=== PATIENT | female | born 1970 | race Caucasian/White ===

== ENCOUNTER 2020-10-18 07:00 | Outpatient (REF) | payer OTHER, SELFPAY ==
[2020-10-18 07:29] LABS: COVID-19 Test Negative (Negative)
== END 2020-10-18 07:01 | disposition home or self-care (01) ==
LOC: HO.EMPCOV 07:00
PROVIDERS: PCP Internal Medicine; Visit Provider Internal Medicine
DX: Z20.828 Contact with and (suspected) exposure to other viral communicable diseases (principal)
CPT/HCPCS: 87635; C9803

== ENCOUNTER 2021-01-10 10:56 | Outpatient (REF) | payer OTHER, SELFPAY ==
--- NOTE | ~2021-01-10 | XR_ITS ---
EXAMINATION: XR SHOULDER, RIGHT CLINICAL INFORMATION: Pain COMPARISON: Previous x-ray May 2014 TECHNIQUE: Three views of the right shoulder. FINDINGS: Bone alignment is normal. No acute fracture or dislocation is seen. There may be old healed fractures of the right fourth and fifth ribs that appears unchanged. The joint spaces are normal. Soft tissues are normal. XR/XR shoulder RT min 2V IMPRESSION: Normal shoulder. Question old right rib fractures.
== END 2021-01-10 10:57 | disposition home or self-care (01) ==
LOC: HO.HOSX 10:56
PROVIDERS: Visit Provider Orthopaedic Surgery
DX: Z13.89 Encounter for screening for other disorder (principal)

== ENCOUNTER → 2021-01-12 08:01 | Outpatient (BNVA) | payer OTHER, SELFPAY | PROVIDERS: Visit Provider Orthopaedic Surgery | DX: M75.41 Impingement syndrome of right shoulder (principal) | CPT/HCPCS: 20610; 73030; J1040 ==

== ENCOUNTER 2021-02-15 08:57 | Outpatient (REF) | payer OTHER, SELFPAY ==
[2021-02-17 16:42] LABS: HPV mRNA E6/E7 rflx Not Detected (Not Detected)
== END 2021-02-15 08:58 | disposition home or self-care (01) ==
LOC: HO.LAB 08:57
PROVIDERS: PCP Internal Medicine; Visit Provider Obstetrics & Gynecology
DX: Z01.419 Encounter for gynecological examination (general) (routine) without abnormal findings (principal); N95.0 Postmenopausal bleeding
CPT/HCPCS: 58100; 87624; 88142; 88305

== ENCOUNTER → 2021-03-02 09:39 | Outpatient (BNVA) | payer OTHER, SELFPAY | PROVIDERS: PCP Internal Medicine; Visit Provider Orthopaedic Surgery ==

== ENCOUNTER → 2021-03-04 11:33 | Outpatient (BNVA) | payer OTHER, SELFPAY | PROVIDERS: Visit Provider Obstetrics & Gynecology ==

== ENCOUNTER 2021-05-06 11:56 | Outpatient (REF) | payer OTHER, SELFPAY ==
--- NOTE | ~2021-05-06 | MM_ITS ---
EXAMINATION: MM SCREENING DIGITAL BREAST TOMOSYNTHESIS, BILATERAL CLINICAL INFORMATION: Screening. Asymptomatic. The lifetime risk of breast cancer based on the Tyrer-Cuzick Model is 6%. COMPARISON: Mammography: 09/24/2019, 08/29/2018, 07/16/2017 TECHNIQUE: Digital breast tomosynthesis is performed in both the craniocaudal and mediolateral oblique views along with computer-aided detection (CAD). Synthesized 2D images are generated from the tomosynthesis. FINDINGS: There are scattered areas of fibroglandular density (ACR BI-RADS breast composition Category b). There are no significant masses, abnormal calcifications, or other abnormalities. There is a biopsy clip marker adjacent to small stable nodule inferior medial right breast. No developing density. The axilla and skin contours are unremarkable. MM/MM tomosynthesis screening BI IMPRESSION: No mammographic evidence of malignancy. ASSESSMENT: BI-RADS 2: Benign RECOMMENDATION: Routine annual mammography screening. This patient's information was entered into a reminder system with a target due date for their next mammogram.
== END 2021-05-06 11:57 | disposition home or self-care (01) ==
LOC: HO.MAMMO 11:56
PROVIDERS: Visit Provider Internal Medicine
DX: Z12.31 Encounter for screening mammogram for malignant neoplasm of breast (principal)
CPT/HCPCS: 77063; 77067

== ENCOUNTER → 2021-05-13 14:10 | Outpatient (BNVA) | payer OTHER, SELFPAY | PROVIDERS: PCP Internal Medicine; Visit Provider Nurse Practitioner ==

== ENCOUNTER 2021-05-16 07:44 | Outpatient (REF) | payer OTHER, SELFPAY ==
[2021-05-16 10:07] LABS: MANUAL DIFF FLAG NO
[2021-05-16 10:15] LABS: Basophils Percent Auto 0.7 % (0-2); Eosinophils Absolute Auto 0.5 X10*3/uL (0.0-0.4); Eosinophils Percent Auto 9.6 % (0-4); Hematocrit 38.7 % (37-47); Hemoglobin 12.7 g/dl (12.0-16.0); Imm Gran Abs Auto 0.04 X10*3/uL (0.00-0.03); Imm Gran Pct Auto 0.7 % (0.0-0.4); Lymphocytes Absolute Auto 1.5 X10*3/uL (1.2-4.9); Lymphocytes Percent Auto 26.1 % (20-40); Mean Corpuscular HGB Conc 32.8 g/dl (31.0-35.0); Mean Corpuscular Hemoglobin 29.5 pg (27.0-33.0); Mean Platelet Volume 10.2 fL (9.4-12.3); Monocytes Absolute Auto 0.4 X10*3/uL (0.1-1.2); Monocytes Percent Auto 6.3 % (2-11); Neutrophils Absolute Auto 3.2 X10*3/uL (2.0-8.3); Neutrophils Percent Auto 56.6 % (45-73); Platelet Count 235 X10*3/uL (160-400); Red Cell Distribution Width 12.9 % (11.0-16.0); White Blood Count 5.6 X10*3/uL (4.8-10.8)
[2021-05-16 11:19] LABS: Alanine Aminotransferase 19 U/L (0-31); Albumin Level 4.3 g/dL (3.5-5.0); Alkaline Phosphatase 77 U/L (39-117); Anion Gap 12 (12-20); Aspartate Amino Transferase 16 U/L (5-31); Bilirubin Total 0.3 mg/dL (0.0-1.0); Blood Urea Nitrogen 9 mg/dL (9-16); Calcium 9.1 mg/dL (8.4-10.2); Carbon Dioxide 25 mmol/L (22-29); Chloride 106 mmol/L (96-108); Estimated Glomerular Filt Rate > 60; Glucose Random 112 mg/dL (60-115); Potassium 4.3 mmol/L (3.3-5.1); Sodium 139 mmol/L (135-145); Total Protein 6.9 g/dL (6.5-8.0)
== END 2021-05-16 07:45 | disposition home or self-care (01) ==
LOC: HO.10HDL 07:44
PROVIDERS: Visit Provider Nurse Practitioner
DX: Z12.11 Encounter for screening for malignant neoplasm of colon (principal)
CPT/HCPCS: 36415; 80053; 85025

== ENCOUNTER → 2021-06-29 14:50 | Outpatient (BNVA) | payer OTHER, SELFPAY | PROVIDERS: PCP Internal Medicine; Visit Provider Internal Medicine Pulmonary Disease ==

== ENCOUNTER 2021-07-14 07:55 | Day surgery (SDC) | payer OTHER, SELFPAY ==
[2021-07-08 10:14] VITALS: BMI 36.9
--- NOTE | 2021-07-13 09:26 | P.CONAN_ITS ---
Documented by User: Alesha Centeno NP 07/13/21 09:30 HPI - Anesthesia Eval Consult details Narrative: 50yo F for Colonoscopy PMFSH Active Problems Active Problems: All Active Problems (Updated 07/08/21 @ 10:17 by Juany Cortes RN) Rotator cuff impingement syndrome of right shoulder (Acute) Colon cancer screening (Acute) DOT (obstructive sleep apnea) (Acute) Past Medical History Medical History (Updated 07/08/21 @ 10:17 by Juany Cortes RN) Anxiety COVID-19 vaccine series completed Heartburn Post-menopausal Sleep apnea Surgical History Surgical History H/O tubal ligation Social History Social History (Updated 07/08/21 @ 10:19 by Juany Cortes RN) Patient Tobacco Use Status: Never used Tobacco Use of substances other than those prescribed or required for medical reasons: No Have you been hit, kicked, punched, or otherwise hurt by someone within the past year? 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 identity: Female Meds Allergies Allergy/AdvReac Type Severity Reaction Status Date / Time No Known Allergies Allergy Verified 06/29/21 14:51 Home Medications Medication Instructions Recorded Confirmed Last Taken Type cholecalciferol (vitamin D3) 25 25 mcg PO DAILY 07/08/21 07/08/21 Unknown History mcg (1,000 unit) capsule (Vitamin D3) sertraline 50 mg tablet 1.5 tab PO DAILY 07/08/21 07/08/21 Unknown History Exam Exam Date and Time: July 13, [id number] Height,Weight and Vital Signs: Height 5 ft Weight 85.729 kg Pertinent Lab Results Pertinent Lab Results: Laboratory Tests 05/16/21 05/16/21 07:50 07:50 WBC 5.6 Hgb 12.7 Hct 38.7 Plt Count 235 Sodium 139 Potassium 4.3 Chloride 106 Carbon Dioxide 25 BUN 9 Creatinine 0.81 Assessment and Plan Assessment Anesthesia Assessment: Chart Reviewed Documented by User: Leeann Flowers MD 07/14/21 08:42 PMFSH Active Problems Active Problems: All Active Problems (Updated 07/08/21 @ 10:17 by Juany Cortes RN) Rotator cuff impingement syndrome of right shoulder (Acute) Colon cancer screening (Acute) DOT (obstructive sleep apnea) (Acute). Not formally diagnosed. For testing 07/18/21 Past Medical History Medical History (Updated 07/08/21 @ 10:17 by Juany Cortes RN) Anxiety COVID-19 vaccine series completed Heartburn Post-menopausal Sleep apnea Family History Family history of problems with anesthesia: No Surgical History Surgical History H/O tubal ligation History of Problems with Anesthesia: No Social History Social History (Updated 07/08/21 @ 10:19 by Juany Cortes RN) Patient Tobacco Use Status: Never used Tobacco Use of substances other than those prescribed or required for medical reasons: No Have you been hit, kicked, punched, or otherwise hurt by someone within the past year? 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 identity: Female Meds Allergies Allergy/AdvReac Type Severity Reaction Status Date / Time No Known Allergies Allergy Verified 06/29/21 14:51 Home Medications Medication Instructions Recorded Confirmed Last Taken Type cholecalciferol (vitamin D3) 25 25 mcg PO DAILY 07/08/21 07/08/21 Unknown History mcg (1,000 unit) capsule (Vitamin D3) sertraline 50 mg tablet 1.5 tab PO DAILY 07/08/21 07/08/21 Unknown History Exam Height,Weight and Vital Signs: Height 5 ft Weight 85.729 kg Vital Signs Temp Pulse Resp BP 07/14/21 08:07 97.8 F 78 16 120/81 Airway Mallampati Class: II TM Dist: >3cm Neck ROM: Full Heart: RRR Lungs: CTAB Assessment and Plan Assessment Anesthesia Assessment: Anesthesia Plan Discussed Final Anesthetic Review Family History of Problems with Anesthesia: No History of Problems with Anesthesia: No NPO: Yes ASA Class: II Final Preanesthetic Review: No Changes in Pt Med Stat, Meds/Allgs Chart Reviewed , Consent Obtained/Reviewed and Anes Risks/Benef Reviewed Patient Risk: Intermediate Procedure Risk: Low Assessment/Block/Sedation in SS: Assess/Block/Sedation-SS Anesthetic Plan Anesthetic Plan: MAC: Disposition: Standard PACU
[2021-07-14 08:07] VITALS: BP 120/81; PULSE 78; RESP 16; TEMP 36.6
[2021-07-14] MEDS: Lactated Ringers 1,000 ML 100 ML IVCONT (08:17)
--- NOTE | 2021-07-14 08:28 | P.BOP_ITS ---
Brief Operative Note Date of Service: 07/14/21 Pre-op diagnosis: colon screening Post-op diagnosis: same Procedure: see op note Surgeon: Favio Power MD Anesthesia: MAC Was an Customer Success Specialist used for this Procedure?: No Estimated blood loss (mL): 0 Condition: stable Disposition: PACU
--- NOTE | 2021-07-14 08:28 | MHC.SHP ---
Pre-Procedural Eval Section A Date of Service: 07/14/21 Section B Chief Complaint: Screening Relevant Family History (Specify if Yes): No Relevant Social History: None Present Medications: see Short Stay Collaborative assessment Medical History: Significant History (Anxiety COVID-19 vaccine series completed Heartburn Post-menopausal Sleep apnea) History of Previous Operations: Relevant previous surgery/procedure and date(s) (tubal ligation) Allergies: Allergies Allergy/AdvReac Type Severity Reaction Status Date / Time No Known Allergies Allergy Verified 06/29/21 14:51 Review of Systems Sugical H&P ROS: Negative: Constitution, Cardiovascular, Respiratory, Neurological, Psychiatric, Hem-Onc, Allergic/Immunologic, Gastrointestinal, Genitourinary, Musculoskeletal, Integumentary, Endocrine and Eyes/Ears/Nose/Throat Exam Surgical H&P Exam: Normal: HEENT, Normal: Heart, Normal: Lungs, Normal: Extremities, Normal: Abdomen, Normal: Skin and Normal: Neurological Plan Diagnosis/Plan: Unchanged I have reviewed the history and physical and performed a pertinent physical examination on my patient. No changes have occurred unless specified.
--- NOTE | 2021-07-14 08:29 | W.PM.OPN ---
Operative Note Operative Note Date of Service: 07/14/21 Narrative: Operative Information Procedure Description: Colonoscopy COLONOSCOPY Instrument: Olympus variable stiffness pediatric scope 190L Colonoscopy Monitoring: Vital signs and clinical assessment, continuous EKG monitoring, Pulse oximetry, Carbon Dioxide monitoring and blood pressure monitoring were done throughout the procedure. Colon withdrawal time was 11 minutes. Procedure: The patient was placed in the left lateral decubitis position and pre-procedure medications were administered. After a digital rectal examination of the ano-rectum, the video colonoscope was inserted into the rectum and advanced through the colon to the cecum/TI. The colonoscope was slowly withdrawn in a retrograde panoramic fashion and the colon mucosa was carefully examined including a retroflexed view of the rectum. Findings and interventions are described below. Procedure Difficulty:moderate, pressure applied to get to cecum, Findings: Terminal Ileum-normal Cecum:normal Ascending Colon: 9-10 mm sessile polyp removed with cold snare but not retrieved Transverse Colon -normal Descending Colon:normal Sigmoid Colon: normal Rectum: Retroflexion with small internal hemorrhoids, grade I Anorectum - normal Colon preparation: Reading Bowel Preparation Scale Right colon; 2 Transverse colon: 2 Left colon; 2 (0 = Unprepared colon segment with mucosa not seen due to solid stool that cannot be cleared. 1 = Portion of mucosa of the colon segment seen, but other areas of the colon segment not well seen due to staining, residual stool and/or opaque liquid. 2 = Minor amount of residual staining, small fragments of stool and/or opaque liquid, but mucosa of colon segment seen well. 3 = Entire mucosa of colon segment seen well with no residual staining, small fragments of stool or opaque liquid) Impression and Post Procedure Diagnosis: polyp internal hemorrhoids Plan: High fiber diet leaflet Avoid straining at stool, epsom salts and sitz bath, anusol supps or cream Repeat Colonoscopy in 5 years or earlier if clinically indicated Above findings were reviewed with the patient and relevant handouts were provided if indicated.
[2021-07-14 09:13] VITALS: BP 115/69; PULSE 75; RESP 12; TEMP 36.8; O2SAT 98
[2021-07-14 09:28] VITALS: BP 117/71; PULSE 72; RESP 18; TEMP 36.8; O2SAT 98
== END 2021-07-14 09:49 | disposition home or self-care (01) ==
PROVIDERS: PCP Internal Medicine; Visit Provider Internal Medicine Gastroenterology
PROC: 0DJD8ZZ Inspection of Lower Intestinal Tract, Via Natural or Artificial Opening Endoscopic (ICD-10-PCS; CPT 45378; principal; 2021-07-14 09:10)
DX: Z12.11 Encounter for screening for malignant neoplasm of colon (principal); D12.2 Benign neoplasm of ascending colon; K64.0 First degree hemorrhoids
CPT/HCPCS: 45385; J3010

== ENCOUNTER → 2021-07-18 10:34 | Outpatient (REF) | payer OTHER, SELFPAY | LOC: HO.SL 10:34 | PROVIDERS: PCP Internal Medicine; Visit Provider Internal Medicine Pulmonary Disease | DX: G47.33 Obstructive sleep apnea (adult) (pediatric) (principal); R51.9 Headache, unspecified; R06.83 Snoring; R40.0 Somnolence | CPT/HCPCS: 95806 ==

== ENCOUNTER → 2021-08-02 15:19 | Outpatient (BNVA) | payer OTHER, SELFPAY | PROVIDERS: PCP Internal Medicine; Visit Provider Internal Medicine Pulmonary Disease ==

== ENCOUNTER 2021-11-29 07:33 | Outpatient (REF) | payer OTHER, SELFPAY ==
[2021-11-29 10:37] LABS: Cholesterol 264 mg/dL; HDL Cholesterol 54 mg/dL; LDL Cholesterol Calculated 186 mg/dl; Triglycerides 120 mg/dL
== END 2021-11-29 07:34 | disposition home or self-care (01) ==
LOC: HO.10HDL 07:33
PROVIDERS: Visit Provider Internal Medicine
DX: E78.2 Mixed hyperlipidemia (principal)
CPT/HCPCS: 36415; 80061

== ENCOUNTER → 2021-12-28 16:14 | Outpatient (BNVA) | payer OTHER, SELFPAY | PROVIDERS: PCP Internal Medicine; Visit Provider Nurse Practitioner Family ==

== ENCOUNTER → 2022-02-17 10:16 | Outpatient (BNVA) | payer OTHER, SELFPAY | PROVIDERS: PCP Internal Medicine; Visit Provider Advanced Practice Midwife | DX: Z13.89 Encounter for screening for other disorder (principal) ==

== ENCOUNTER 2022-03-07 10:50 | Outpatient (REF) | payer OTHER, SELFPAY | END 2022-03-07 10:51 | disposition home or self-care (01) | LOC: HO.MAMMO 10:50 | PROVIDERS: PCP Internal Medicine; Visit Provider Advanced Practice Midwife | DX: Z13.89 Encounter for screening for other disorder (principal) ==

== ENCOUNTER 2022-03-30 08:08 | Outpatient (REF) | payer OTHER, SELFPAY ==
--- NOTE | ~2022-03-30 | MR_ITS ---
EXAMINATION: MRI ANKLE WITHOUT CONTRAST, LEFT CLINICAL INFORMATION: Achilles tendinitis COMPARISON: None TECHNIQUE: MRI of the ankle without contrast is performed in a 1.5 Jenny high-field scanner. FINDINGS: ACHILLES TENDON: There is thickening of the proximal/midportion of the Achilles tendon, measuring approximately 1.1 cm AP. Mild increased signal in the distal Achilles tendon. The findings are compatible with tendinosis. No focal tendon defect or tear is identified. Mild peritendinitis. Trace edema/bursal fluid in the retrocalcaneal region. BONE/JOINTS: No suspicious marrow signal changes. No evidence of fracture. No talar dome osteochondral lesion. Moderate second tarsometatarsal joint arthritis. Mild third tarsometatarsal joint arthritis. MUSCLES/TENDONS: Mild posterior tibial tenosynovitis. Flexor hallucis longus tenosynovitis, with prominent fluid in the tendon sheath. Medial flexor tendons intact. Peroneal, extensor tendons intact. There is a small fluid focus associated with the distal tibialis anterior tendon, dorsal to the navicular-medial cuneiform, could represent focal tenosynovitis versus a ganglion cyst in this region. LIGAMENTS: Mild sprain ATFL. Posterior talofibular, tibiofibular, calcaneofibular ligaments intact. Deltoid ligament is intact. PLANTAR FASCIA: Intact. SINUS TARSI: Normal signal. TARSAL TUNNEL : Unremarkable MR/MR ankle LT wo con IMPRESSION: 1. Achilles tendinosis. No focal tear seen. Mild peritendinitis. Trace retrocalcaneal edema/bursal fluid. 2. Posterior tibial and flexor hallucis longus tenosynovitis. 3. Fluid focus associated with the distal tibialis anterior tendon, dorsal to the navicular-medial cuneiform articulation, could represent focal tenosynovitis versus a ganglion cyst 4. Mild sprain ATFL.
== END 2022-03-30 08:09 | disposition home or self-care (01) ==
LOC: HO.MRI 08:08
PROVIDERS: Visit Provider Internal Medicine
DX: M76.62 Achilles tendinitis, left leg (principal)
CPT/HCPCS: 73721

== ENCOUNTER 2022-04-26 09:46 | Outpatient (REF) | payer OTHER, SELFPAY ==
--- NOTE | ~2022-04-26 | FL_ITS ---
EXAMINATION: XR FLUOROSCOPY WITH IMAGES CLINICAL INFORMATION: M53.3 - Sacrococcygeal disorders, not elsewhere classified COMPARISON: None. TECHNIQUE: Fluoroscopy performed by Dr. Fer Harris. Fluoroscopy time: 0.3 minutes. DAP: 1.83 Gycm2. Images: 2. FINDINGS: There is a spinal needle overlying the mid right sacroiliac joint with needle tip level of the joint. No erosive changes. FL/FL guidance in treatment room IMPRESSION: Fluoroscopy for pain management procedure.
== END 2022-04-26 09:47 | disposition home or self-care (01) ==
LOC: HO.XRAY 09:46
PROVIDERS: PCP Internal Medicine; Visit Provider Internal Medicine
DX: M53.3 Sacrococcygeal disorders, not elsewhere classified (principal)
CPT/HCPCS: 27096; J1020

== ENCOUNTER 2022-05-08 09:59 | Outpatient (REF) | payer OTHER, SELFPAY ==
--- NOTE | ~2022-05-08 | MM_ITS ---
EXAMINATION: MM SCREENING DIGITAL BREAST TOMOSYNTHESIS, BILATERAL CLINICAL INFORMATION: Screening. Asymptomatic. The lifetime risk of breast cancer based on the Tyrer-Cuzick Model is 7%. COMPARISON: Mammography: 05/06/2021; outside mammography 09/24/2019, 08/29/2018 ([facility]) TECHNIQUE: Digital breast tomosynthesis is performed in both the craniocaudal and mediolateral oblique views along with computer-aided detection (CAD). Synthesized 2D images are generated from the tomosynthesis. FINDINGS: There are scattered areas of fibroglandular density (ACR BI-RADS breast composition Category b). There are no significant masses, abnormal calcifications, or other abnormalities. There is a small stable oval nodule with adjacent biopsy clip marker right breast mid lower inner quadrant. The axilla and skin contours are unremarkable. There are no significant changes. MM/MM tomosynthesis screening BI IMPRESSION: No mammographic evidence of malignancy. ASSESSMENT: BI-RADS 2: Benign RECOMMENDATION: Routine annual mammography screening. This patient's information was entered into a reminder system with a target due date for their next mammogram.
== END 2022-05-08 10:00 | disposition home or self-care (01) ==
LOC: HO.MAMMO 09:59
PROVIDERS: Visit Provider Internal Medicine
DX: Z12.31 Encounter for screening mammogram for malignant neoplasm of breast (principal)
CPT/HCPCS: 77063; 77067

== ENCOUNTER 2022-11-03 07:00 | Outpatient (RCR) | payer OTHER, SELFPAY | END 2022-11-03 10:35 | disposition home or self-care (01) | LOC: HO.PT 07:00 | PROVIDERS: Visit Provider Orthopaedic Surgery | DX: M61.462 Other calcification of muscle, left lower leg (principal) | CPT/HCPCS: 97110; 97140; 97162; 97530 ==

== ENCOUNTER 2022-12-19 14:32 | Emergency (ER) | payer OTHER, SELFPAY ==
--- NOTE | ~2022-12-19 | XR_ITS ---
EXAMINATION: XR chest 2V CLINICAL INFORMATION: Reason for Exam fever, cough COMPARISON: No prior chest x-ray available in our system for comparison at the time of this dictation. TECHNIQUE: XR chest 2V Lungs and Mone: Both lungs are clear. Pleura: Normal. Costophrenic angles are sharp. No pneumothorax. Heart: The heart is normal in size. Mediastinum: The mediastinum is within normal limits.. Bones: Skeletal structures included are normal for patient's age. XR/XR chest 2V IMPRESSION: No radiographic evidence of acute cardiopulmonary disease.
[2022-12-19 14:35] VITALS: BP 151/87; PULSE 75; RESP 16; TEMP 36.7; O2SAT 99; BMI 37.0
[2022-12-19 15:32] LABS: MANUAL DIFF FLAG NO
[2022-12-19 15:35] LABS: Basophils Absolute Auto 0.1 X10*3/uL (0.0-0.2); Basophils Percent Auto 0.6 % (0-2); Eosinophils Absolute Auto 1.4 X10*3/uL (0.0-0.4); Eosinophils Percent Auto 13.4 % (0-4); Hematocrit 40.3 % (37.0-47.0); Hemoglobin 13.5 g/dl (12.0-16.0); Imm Gran Abs Auto 0.03 X10*3/uL (0.00-0.03); Imm Gran Pct Auto 0.3 % (0.0-0.4); Lymphocytes Absolute Auto 1.5 X10*3/uL (1.2-4.9); Lymphocytes Percent Auto 14.5 % (20-40); Mean Corpuscular HGB Conc 33.5 g/dl (31.0-35.0); Mean Corpuscular Volume 86.7 fL (80.0-98.0); Mean Platelet Volume 9.7 fL (9.4-12.3); Monocytes Absolute Auto 0.5 X10*3/uL (0.1-1.2); Monocytes Percent Auto 4.4 % (2-11); NRBC Pct Auto 0.2 /100WBC (0.0-0.2); Neutrophils Absolute Auto 7.1 x10*3/uL (2.0-8.3); Neutrophils Percent Auto 66.8 % (45-73); Platelet Count 267 X10*3/uL (160-400); Red Blood Count 4.65 X10*6/uL (4.20-5.50); Red Cell Distribution Width 12.8 % (11.0-16.0); White Blood Count 10.6 X10*3/uL (4.8-10.8)
[2022-12-19 15:48] LABS: COVID-19 Test Negative (Negative); IDNOW Serial# 16C4AD1C
[2022-12-19 15:49] LABS: Alanine Aminotransferase 15 U/L (0-31); Albumin Level 4.2 g/dL (3.5-5.0); Alkaline Phosphatase 108 U/L (39-117); Anion Gap 14 (12-20); Aspartate Amino Transferase 12 U/L (5-31); Bilirubin Total 0.4 mg/dL (0.0-1.0); Blood Urea Nitrogen 9 mg/dL (9-16); Calcium 9.3 mg/dL (8.4-10.2); Carbon Dioxide 23 mmol/L (22-29); Chloride 107 mmol/L (96-108); Estimated Glomerular Filt Rate > 60; Glucose Random 124 mg/dL (60-115); Lipase 21 U/L (8-78); Potassium 4.4 mmol/L (3.3-5.1); Sodium 140 mmol/L (135-145); Total Protein 6.9 g/dL (6.5-8.0)
[2022-12-19 16:53] VITALS: BP 148/85; PULSE 88; RESP 20; TEMP 36.2; O2SAT 97
--- NOTE | 2022-12-19 16:54 | ED.ABDPAIN ---
HPI - Abdominal Pain General Chief Complaint: Abdominal Pain <JOSÉ LUIS Back - Last Filed: 12/19/22 16:57> Stated Complaint: Upper abd pain <JOSÉ LUIS Back - Last Filed: 12/19/22 16:57> Time Seen by Provider: 12/19/22 19:47 <JOSÉ LUIS Back - Last Filed: 12/19/22 16:57> Source: patient <Alexandra Blair MD - Last Filed: 12/19/22 20:57> Mode of arrival: ambulatory <Alexandra Blair MD - Last Filed: 12/19/22 20:57> History of Present Illness HPI narrative: This is a pleasant 52-year-old female who presents with intermittent epigastric discomfort since Sunday, sharp in nature associated with nausea as well as diarrhea and reports that last night she had a fever with a T-max of 101 degrees. <Alexandra Blair MD - Last Filed: 12/19/22 20:57> Related Data Home Medications: Home Medications Medication Instructions Recorded Confirmed cholecalciferol (vitamin D3) 25 25 mcg PO DAILY 07/08/21 07/08/21 mcg (1,000 unit) capsule (Vitamin D3) sertraline 50 mg tablet 1.5 tab PO DAILY 07/08/21 07/08/21 Previous Rx's Medication Instructions Recorded methylprednisolone 4 mg tablets in See Rx Instructions PO PER PKG DIR 03/31/22 a dose pack (Medrol (Daniel)) #21 ea tizanidine 2 mg tablet 2 mg PO Q8H PRN muscle spasticity 04/01/22 #21 tabs tramadol 50 mg tablet 50 mg PO BID PRN pain, moderate 3 04/25/22 days #6 tabs rimegepant 75 mg disintegrating 75 mg PO Q OTHER DAY PRN migraine 12/15/22 tablet (Nurtec ODT) headache 30 days #16 tabs sucralfate 100 mg/mL oral 10 ml PO BID #414 mL 12/19/22 suspension (Carafate) <JOSÉ LUIS Back - Last Filed: 12/19/22 16:57> Allergies/Adverse Reactions: Allergies Allergy/AdvReac Type Severity Reaction Status Date / Time No Known Allergies Allergy Verified 02/17/22 10:27 <JOSÉ LUIS Back - Last Filed: 12/19/22 16:57> Review of Systems Review of Systems Pertinent positives and negatives as stated in HPI <Alexandra Blair MD - Last Filed: 12/19/22 20:57> PMFSH Past Medical History Source: nursing notes reviewed <Alexandra Blair MD - Last Filed: 12/19/22 20:57> Medical History: Medical History Anxiety COVID-19 vaccine series completed Heartburn Post-menopausal Sleep apnea <JOSÉ LUIS Back - Last Filed: 12/19/22 16:57> Surgical History: Surgical History H/O tubal ligation <JOSÉ LUIS Back - Last Filed: 12/19/22 16:57> Social History Social History: Social History Household Members: Spouse Patient Tobacco Use Status: Never used Tobacco Advance Directives: No Advance Directives Information Provided: Yes Current occupational status: employed 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 <JOSÉ LUIS Back - Last Filed: 12/19/22 16:57> Physical Exam ED Vital Signs: Vital Signs - 24 hr 12/19/22 14:35 12/19/22 16:53 Temperature 98.0 F 97.2 F Pulse Rate 75 88 Respiratory Rate 16 20 Blood Pressure 151/87 H 148/85 H Pulse Oximetry 99 97 Oxygen Delivery Method Room Air Room Air BMI result Body Mass Index 37.0 <JOSÉ LUIS Back - Last Filed: 12/19/22 16:57> Vital Signs - 24 hr 12/19/22 14:35 12/19/22 16:53 Temperature 98.0 F 97.2 F Pulse Rate 75 88 Respiratory Rate 16 20 Blood Pressure 151/87 H 148/85 H Pulse Oximetry 99 97 Oxygen Delivery Method Room Air Room Air BMI result Body Mass Index 37.0 VITAL SIGNS: Reviewed. GENERAL: Well developed, well nourished, in no acute distress. HEAD: Normocephalic/atraumatic EYES: PERRLA, EOMI OROPHARYNX: no oral lesions noted, posterior pharynx clear NECK: Supple, no adenopathy LUNGS: Normal breath sounds. No adventitious sounds or accessory muscle use. SpO2<97> CARDIOVASCULAR: Regular rate and rhythm without noted murmurs, no JVD or lower extremity edema. ABDOMEN: Soft, mild discomfort in epigastrium without rebound, non-distended with bowel sounds. NEUROLOGIC: Alert and oriented x 4. <Alexandra Blair MD - Last Filed: 12/19/22 20:57> Course Course Course Narrative: RME--52-year-old female past medical history anxiety, sleep apnea, presenting to the ED complaining of epigastric abdominal pain, nausea, nonbloody diarrhea x 4 days, w/ fever T-max 101 degrees last night. Denies vomiting, dysuria/hematuria Abdomen soft with mild epigastric tenderness, no rebound or guarding Labs, UA, EKG ordered <JOSÉ LUIS Back - Last Filed: 12/19/22 16:57> Medical Decision Making Medical Decision Making MDM Narrative: This is a 52-year-old female with history and clinical presentation initially suggestive of possible gastritis/acid reflux, cholecystitis, pancreatitis and lower clinical suspicion for for SBO. I reviewed all investigations and my interpretation is there are no findings to suggest cholecystitis or pancreatitis and instead feel that this is most consistent with a viral gastroenteritis or possible gastritis/ulcer. Patient has some difficulty with tolerating Mylanta and will try a trial of Carafate, patient has Zofran at home and was also history to stick to a bland diet and to try to avoid the citrus or carbonated beverages. Patient is agreeable to current plan and was informed of all investigations. She is otherwise discharged home in stable condition and I did make the recommendation that she should follow-up with primary care provider and possibly discuss a referral to Gastroenterology for an upper endoscopy for further evaluation. I have noted the small amount of leukocyte esterase in the urine, however there is no presence bacteria or white blood cells. I will not treat this as a UTI. <Alexandra Blair MD - Last Filed: 12/19/22 20:57> Differential Diagnosis Please see the discussion above <Alexandra Blair MD - Last Filed: 12/19/22 20:57> Lab Data Please see the discussion above <Alexandra Blair MD - Last Filed: 12/19/22 20:57> Result Diagrams: 12/19/22 15:23 12/19/22 15:23 <JOSÉ LUIS Back - Last Filed: 12/19/22 16:57> Labs: Lab Results 12/19/22 12/19/22 12/19/22 Range/Units 15:21 15:23 15:23 WBC 10.6 (4.8-10.8) X10*3/uL RBC 4.65 (4.20-5.50) X10*6/uL Hgb 13.5 (12.0-16.0) g/dl Hct 40.3 (37.0-47.0) % MCV 86.7 (80.0-98.0) fL MCH 29.0 (27.0-33.0) pg MCHC 33.5 (31.0-35.0) g/dl RDW 12.8 (11.0-16.0) % Plt Count 267 (160-400) X10*3/uL MPV 9.7 (9.4-12.3) fL Immature Gran % (Auto) 0.3 (0.0-0.4) % Neut % (Auto) 66.8 (45-73) % Lymph % (Auto) 14.5 L (20-40) % [place] % (Auto) 4.4 (2-11) % Eos % (Auto) 13.4 H (0-4) % Baso % (Auto) 0.6 (0-2) % Lymph # (Auto) 1.5 (1.2-4.9) X10*3/uL [place] # (Auto) 0.5 (0.1-1.2) X10*3/uL Eos # (Auto) 1.4 H (0.0-0.4) X10*3/uL Baso # (Auto) 0.1 (0.0-0.2) X10*3/uL Abs Immat Gran (auto) 0.03 (0.00-0.03) X10*3/uL Absolute Neuts (auto) 7.1 (2.0-8.3) x10*3/uL Absolute Nucleated RBC 0.020 H (0.0-0.012) X10*3/uL Nucleated RBC % (auto) 0.2 (0.0-0.2) /100WBC Sodium 140 (135-145) mmol/L Potassium 4.4 (3.3-5.1) mmol/L Chloride 107 (96-108) mmol/L Carbon Dioxide 23 (22-29) mmol/L Anion Gap 14 (12-20) BUN 9 (9-16) mg/dL Creatinine 0.79 (0.5-1.4) mg/dL Estim Creat Clear Calc 83.0 Estimated GFR > 60 Random Glucose 124 H (60-115) mg/dL Calcium 9.3 (8.4-10.2) mg/dL Magnesium 2.1 (1.6-2.6) mg/dL Total Bilirubin 0.4 (0.0-1.0) mg/dL AST 12 (5-31) U/L ALT 15 (0-31) U/L Alkaline Phosphatase 108 (39-117) U/L Total Protein 6.9 (6.5-8.0) g/dL Albumin 4.2 (3.5-5.0) g/dL Lipase 21 (8-78) U/L Urine Color Urine Appearance Urine pH (5.0-9.0) Ur Specific Egan (1.005-1.025) Urine Protein (Neg-Trace) mg/dL Urine Glucose (UA) (Negative) mg/dL Urine Ketones (Negative) mg/dL Urine Blood (Negative) Urine Nitrite (Negative) Ur Leukocyte Esterase (Negative) Urine RBC (0-2) /HPF Urine WBC (0-5) /HPF Ur Squamous Epith Cells (0-2) /HPF Urine Bacteria (None Seen) Hyaline Casts (0-2) /LPF COVID-19 (SHAZIA) Negative (Negative) COVID-19 Clin Com See Note 12/19/22 Range/Units 17:05 WBC (4.8-10.8) X10*3/uL RBC (4.20-5.50) X10*6/uL Hgb (12.0-16.0) g/dl Hct (37.0-47.0) % MCV (80.0-98.0) fL MCH (27.0-33.0) pg MCHC (31.0-35.0) g/dl RDW (11.0-16.0) % Plt Count (160-400) X10*3/uL MPV (9.4-12.3) fL Immature Gran % (Auto) (0.0-0.4) % Neut % (Auto) (45-73) % Lymph % (Auto) (20-40) % [place] % (Auto) (2-11) % Eos % (Auto) (0-4) % Baso % (Auto) (0-2) % Lymph # (Auto) (1.2-4.9) X10*3/uL [place] # (Auto) (0.1-1.2) X10*3/uL Eos # (Auto) (0.0-0.4) X10*3/uL Baso # (Auto) (0.0-0.2) X10*3/uL Abs Immat Gran (auto) (0.00-0.03) X10*3/uL Absolute Neuts (auto) (2.0-8.3) x10*3/uL Absolute Nucleated RBC (0.0-0.012) X10*3/uL Nucleated RBC % (auto) (0.0-0.2) /100WBC Sodium (135-145) mmol/L Potassium (3.3-5.1) mmol/L Chloride (96-108) mmol/L Carbon Dioxide (22-29) mmol/L Anion Gap (12-20) BUN (9-16) mg/dL Creatinine (0.5-1.4) mg/dL Estim Creat Clear Calc Estimated GFR Random Glucose (60-115) mg/dL Calcium (8.4-10.2) mg/dL Magnesium (1.6-2.6) mg/dL Total Bilirubin (0.0-1.0) mg/dL AST (5-31) U/L ALT (0-31) U/L Alkaline Phosphatase (39-117) U/L Total Protein (6.5-8.0) g/dL Albumin (3.5-5.0) g/dL Lipase (8-78) U/L Urine Color Yellow Urine Appearance Clear Urine pH 7.5 (5.0-9.0) Ur Specific Egan 1.010 (1.005-1.025) Urine Protein Negative (Neg-Trace) mg/dL Urine Glucose (UA) Negative (Negative) mg/dL Urine Ketones Negative (Negative) mg/dL Urine Blood Negative (Negative) Urine Nitrite Negative (Negative) Ur Leukocyte Esterase Small (1+) H (Negative) Urine RBC 0-2 (0-2) /HPF Urine WBC 0-5 (0-5) /HPF Ur Squamous Epith Cells 0-2 (0-2) /HPF Urine Bacteria None Seen (None Seen) Hyaline Casts 0-2 (0-2) /LPF COVID-19 (SHAZIA) (Negative) COVID-19 Clin Com <JOSÉ LUIS Back - Last Filed: 12/19/22 16:57> Lab Results 12/19/22 12/19/22 12/19/22 Range/Units 15:21 15:23 15:23 WBC 10.6 (4.8-10.8) X10*3/uL RBC 4.65 (4.20-5.50) X10*6/uL Hgb 13.5 (12.0-16.0) g/dl Hct 40.3 (37.0-47.0) % MCV 86.7 (80.0-98.0) fL MCH 29.0 (27.0-33.0) pg MCHC 33.5 (31.0-35.0) g/dl RDW 12.8 (11.0-16.0) % Plt Count 267 (160-400) X10*3/uL MPV 9.7 (9.4-12.3) fL Immature Gran % (Auto) 0.3 (0.0-0.4) % Neut % (Auto) 66.8 (45-73) % Lymph % (Auto) 14.5 L (20-40) % [place] % (Auto) 4.4 (2-11) % Eos % (Auto) 13.4 H (0-4) % Baso % (Auto) 0.6 (0-2) % Lymph # (Auto) 1.5 (1.2-4.9) X10*3/uL [place] # (Auto) 0.5 (0.1-1.2) X10*3/uL Eos # (Auto) 1.4 H (0.0-0.4) X10*3/uL Baso # (Auto) 0.1 (0.0-0.2) X10*3/uL Abs Immat Gran (auto) 0.03 (0.00-0.03) X10*3/uL Absolute Neuts (auto) 7.1 (2.0-8.3) x10*3/uL Absolute Nucleated RBC 0.020 H (0.0-0.012) X10*3/uL Nucleated RBC % (auto) 0.2 (0.0-0.2) /100WBC Sodium 140 (135-145) mmol/L Potassium 4.4 (3.3-5.1) mmol/L Chloride 107 (96-108) mmol/L Carbon Dioxide 23 (22-29) mmol/L Anion Gap 14 (12-20) BUN 9 (9-16) mg/dL Creatinine 0.79 (0.5-1.4) mg/dL Estim Creat Clear Calc 83.0 Estimated GFR > 60 Random Glucose 124 H (60-115) mg/dL Calcium 9.3 (8.4-10.2) mg/dL Magnesium 2.1 (1.6-2.6) mg/dL Total Bilirubin 0.4 (0.0-1.0) mg/dL AST 12 (5-31) U/L ALT 15 (0-31) U/L Alkaline Phosphatase 108 (39-117) U/L Total Protein 6.9 (6.5-8.0) g/dL Albumin 4.2 (3.5-5.0) g/dL Lipase 21 (8-78) U/L Urine Color Urine Appearance Urine pH (5.0-9.0) Ur Specific Egan (1.005-1.025) Urine Protein (Neg-Trace) mg/dL Urine Glucose (UA) (Negative) mg/dL Urine Ketones (Negative) mg/dL Urine Blood (Negative) Urine Nitrite (Negative) Ur Leukocyte Esterase (Negative) Urine RBC (0-2) /HPF Urine WBC (0-5) /HPF Ur Squamous Epith Cells (0-2) /HPF Urine Bacteria (None Seen) Hyaline Casts (0-2) /LPF COVID-19 (SHAZIA) Negative (Negative) COVID-19 Clin Com See Note 12/19/22 Range/Units 17:05 WBC (4.8-10.8) X10*3/uL RBC (4.20-5.50) X10*6/uL Hgb (12.0-16.0) g/dl Hct (37.0-47.0) % MCV (80.0-98.0) fL MCH (27.0-33.0) pg MCHC (31.0-35.0) g/dl RDW (11.0-16.0) % Plt Count (160-400) X10*3/uL MPV (9.4-12.3) fL Immature Gran % (Auto) (0.0-0.4) % Neut % (Auto) (45-73) % Lymph % (Auto) (20-40) % [place] % (Auto) (2-11) % Eos % (Auto) (0-4) % Baso % (Auto) (0-2) % Lymph # (Auto) (1.2-4.9) X10*3/uL [place] # (Auto) (0.1-1.2) X10*3/uL Eos # (Auto) (0.0-0.4) X10*3/uL Baso # (Auto) (0.0-0.2) X10*3/uL Abs Immat Gran (auto) (0.00-0.03) X10*3/uL Absolute Neuts (auto) (2.0-8.3) x10*3/uL Absolute Nucleated RBC (0.0-0.012) X10*3/uL Nucleated RBC % (auto) (0.0-0.2) /100WBC Sodium (135-145) mmol/L Potassium (3.3-5.1) mmol/L Chloride (96-108) mmol/L Carbon Dioxide (22-29) mmol/L Anion Gap (12-20) BUN (9-16) mg/dL Creatinine (0.5-1.4) mg/dL Estim Creat Clear Calc Estimated GFR Random Glucose (60-115) mg/dL Calcium (8.4-10.2) mg/dL Magnesium (1.6-2.6) mg/dL Total Bilirubin (0.0-1.0) mg/dL AST (5-31) U/L ALT (0-31) U/L Alkaline Phosphatase (39-117) U/L Total Protein (6.5-8.0) g/dL Albumin (3.5-5.0) g/dL Lipase (8-78) U/L Urine Color Yellow Urine Appearance Clear Urine pH 7.5 (5.0-9.0) Ur Specific Egan 1.010 (1.005-1.025) Urine Protein Negative (Neg-Trace) mg/dL Urine Glucose (UA) Negative (Negative) mg/dL Urine Ketones Negative (Negative) mg/dL Urine Blood Negative (Negative) Urine Nitrite Negative (Negative) Ur Leukocyte Esterase Small (1+) H (Negative) Urine RBC 0-2 (0-2) /HPF Urine WBC 0-5 (0-5) /HPF Ur Squamous Epith Cells 0-2 (0-2) /HPF Urine Bacteria None Seen (None Seen) Hyaline Casts 0-2 (0-2) /LPF COVID-19 (SHAZIA) (Negative) COVID-19 Clin Com <Alexandra Blair MD - Last Filed: 12/19/22 20:57> Independent Interpretation I performed an independent interpretation of an: EKG <Alexandra Blair MD - Last Filed: 12/19/22 20:57> Interpretation: Normal sinus rhythm, HR-72, no STEMI, HI/QRS/QTC is within normal limits. <Alexandra Blair MD - Last Filed: 12/19/22 20:57> Radiology Impression Radiologist Impression: My interpretation is in agreement with radiology's impression of the imaging study. <Alexandra Blair MD - Last Filed: 12/19/22 20:57> External Record Review External record reviewed: Outpatient record and Prior outpatient labs <Alexandra Blair MD - Last Filed: 12/19/22 20:57> Critical Care Time Critical Care Time Critical Care Time: Yes <Alexandra Blair MD - Last Filed: 12/19/22 20:57> Total Critical Care Time: 30 <Alexandra Blair MD - Last Filed: 12/19/22 20:57> Attestation: I personally attest to this time spent taking care of the patient. <Alexandra Blair MD - Last Filed: 12/19/22 20:57> Discharge Plan Discharge Clinical Impression: Viral gastroenteritis, Gastritis <JOSÉ LUIS Back - Last Filed: 12/19/22 16:57> Patient Disposition: Home, Self-Care <JOSÉ LUIS Back - Last Filed: 12/19/22 16:57> Instructions: Gastritis (ED), Diet for Stomach Ulcers and Gastritis (ED), Gastroenteritis (ED), Nutrition Tips for Relief of Diarrhea (ED) <JOSÉ LUIS Back - Last Filed: 12/19/22 16:57> Additional Instructions: 1. Resume all home medications as prescribed. 2. Please follow the recommendations for gastritis/ulcer considerations. Specifically, avoid citrus, carbonated, caffeinated, spicy, fatty beverages in foods. 3. Continue to drink plenty of water, I have also provided you with a prescription for Carafate in case you are unable to locate a flavor for Mylanta. 4. Please follow-up with your primary care provider next 2-3 days. Return to the ER for any worsening symptoms or onset of new symptoms. <JOSÉ LUIS Back - Last Filed: 12/19/22 16:57> Prescriptions: New sucralfate [Carafate] 100 mg/mL suspension 10 ml PO BID Qty: 414 0RF No Action methylprednisolone [Medrol (Daniel)] 4 mg tablets,dose pack See Rx Instructions PO PER PKG DIR Qty: 21 0RF Rx Instructions: PO PER PKG DIR tizanidine 2 mg tablet 2 mg PO Q8H PRN (Reason: muscle spasticity) Qty: 21 0RF tramadol 50 mg tablet 50 mg PO BID PRN (Reason: pain, moderate) 3 Days Qty: 6 0RF Nurtec ODT 75 mg tablet,disintegrating 75 mg PO Q OTHER DAY PRN (Reason: migraine headache) 30 Days Qty: 16 0RF sertraline 50 mg tablet 1.5 tab PO DAILY cholecalciferol (vitamin D3) [Vitamin D3] 25 mcg (1,000 unit) Capsule 25 mcg PO DAILY <JOSÉ LUIS Back - Last Filed: 12/19/22 16:57> Referrals: Ana Diaz MD [Primary Care Provider] - <JOSÉ LUIS Back - Last Filed: 12/19/22 16:57>
--- NOTE | 2022-12-19 16:56 | ECG_ITS ---
Test Reason : epigastric pain Blood Pressure : / mmHG Vent. Rate : 072 BPM Atrial Rate : 072 BPM P-R Int : 172 ms QRS Dur : 070 ms QT Int : 370 ms P-R-T Axes : 037 019 039 degrees QTc Int : 405 ms Normal sinus rhythm Normal ECG No previous ECGs available Referred By: Jaz Rosales Electronically Signed By:YOLIE MEDEIROS MD
[2022-12-19 17:12] LABS: Magnesium 2.1 mg/dL (1.6-2.6)
[2022-12-19 17:26] LABS: Appearance Urine Clear; Color Urine Yellow; Glucose Urine UA Negative (Negative); Leukocyte Esterase Urine Small (1+) (Negative); Nitrite Urine Negative (Negative); PH 7.5 (5.0-9.0); UMIC TRIGGER UACC YES; Urine Blood Negative (Negative); Urine Ketones Negative (Negative); Urine Protein Negative (Neg-Trace)
[2022-12-19 17:38] LABS: Bacteria Urine None Seen (None Seen); Hyaline Casts Urine 0-2 /LPF (0-2); RBC Urine 0-2 /HPF (0-2); Squamous Epithelial Cell Urine 0-2 /HPF (0-2); UACC Culture Trigger YES; WBC Urine 0-5 /HPF (0-5)
[2022-12-19] MEDS: Sucralfate Oral Suspension 1 GM/10 ML ORAL.SUSP PO (21:26)
[2022-12-19] MEDS: Ondansetron ODT 4 MG TAB.RAPDIS TRANSLINGU (21:26)
== END 2022-12-19 21:26 | disposition home or self-care (01) ==
PROVIDERS: Physician Assistant; Emergency Provider Student in an Organized Health Care Education/Training Program; PCP Internal Medicine
DX: K52.9 Noninfective gastroenteritis and colitis, unspecified (principal); R11.0 Nausea; R10.13 Epigastric pain; Z20.822 Contact with and (suspected) exposure to COVID-19; Z20.828 Contact with and (suspected) exposure to other viral communicable diseases; Z79.899 Other long term (current) drug therapy
CPT/HCPCS: 71046; 80053; 81001; 83690; 83735; 85025; 87086; 87147; 87635; 93005; 99283

== ENCOUNTER 2022-12-20 10:34 | Emergency (ER) | payer OTHER, SELFPAY ==
--- NOTE | ~2022-12-20 | CT_ITS ---
EXAMINATION: CT ABDOMEN AND PELVIS WITHOUT CONTRAST CLINICAL INFORMATION: Epigastric pain. COMPARISON: Abdominal ultrasound performed earlier today at 11:50 AM. TECHNIQUE: Multidetector volumetric imaging was performed from the superior aspect of the liver through the pubic symphysis. Sagittal and coronal reformatted images were obtained on the technologist's workstation. This CT examination was performed using dose optimization techniques as appropriate, variously including the following: *Automated exposure control *Adjustment of mA and/or kV according to patient size (this includes techniques or standardized protocols for targeted exams where dose is matched to indication/reason for exam; i.e. extremities or head) *Use of iterative reconstruction technique DLP: 699 mGy-cm FINDINGS: LUNG BASES: No focal consolidation or pleural effusion. LIVER, GALLBLADDER, AND BILIARY TREE: The liver is normal in size, shape, and attenuation. No focal hepatic lesion or biliary ductal dilatation is present. The gallbladder is unremarkable with no evidence of radiopaque gallstones, gallbladder wall thickening, or obvious pericholecystic inflammatory changes. PANCREAS: Unremarkable. SPLEEN: Unremarkable. ADRENAL GLANDS: Unremarkable. KIDNEYS AND URETERS: The kidneys are normal in size, shape, and attenuation. No hydronephrosis, hydroureter, or calculi seen. No perinephric stranding. BLADDER: Unremarkable. GASTROINTESTINAL TRACT: The stomach and the small bowel are nondilated. Normal appendix. Colonic diverticulosis without significant pericolonic inflammatory changes. No evidence of bowel obstruction. ABDOMINAL WALL: Tiny fat-containing umbilical hernia. LYMPH NODES: Scattered slightly prominent but subcentimeter in short axis mesenteric lymph nodes with very mild haziness of the upper mesenteric fat. A few fairly symmetric mildly prominent pelvic and inguinal lymph nodes are seen, likely reactive. No pathologically enlarged lymph nodes. VASCULAR: Abdominal aorta is of normal diameter. Limited noncontrast examination. PELVIC VISCERA: Unremarkable. OSSEOUS STRUCTURES: Degenerative changes of the spine. No acute or aggressive appearing osseous abnormalities. CT/CT abdomen pelvis wo IV con IMPRESSION: 1. Scattered subcentimeter mesenteric lymph nodes with mild mesenteric fatty haziness, nonspecific finding of uncertain significance, that could be seen with mesenteric adenitis or reactive in the setting of gastroenteritis. 2. Diverticulosis without evidence of acute diverticulitis.
--- NOTE | ~2022-12-20 | US_ITS ---
EXAMINATION: US ABDOMEN LIMITED CLINICAL INFORMATION: Epigastric and right upper quadrant pain. COMPARISON: None TECHNIQUE: Real-time imaging of the right upper quadrant abdominal viscera. FINDINGS: PANCREAS: Suboptimally evaluation. LIVER: Limited evaluation. Visualized portions unremarkable. GALLBLADDER: Unremarkable. COMMON BILE DUCT: Normal in caliber measuring 0.4 cm in diameter. FREE FLUID: None. US/US abdomen limited IMPRESSION: No right upper quadrant/gallbladder abnormality.
[2022-12-20 11:32] VITALS: BP 143/96; PULSE 73; RESP 18; TEMP 36.6; O2SAT 99; BMI 37.0
[2022-12-20 12:08] LABS: MANUAL DIFF FLAG NO
[2022-12-20 12:11] LABS: Basophils Percent Auto 0.4 % (0-2); Eosinophils Absolute Auto 1.4 X10*3/uL (0.0-0.4); Eosinophils Percent Auto 12.3 % (0-4); Hematocrit 44.3 % (37.0-47.0); Hemoglobin 14.7 g/dl (12.0-16.0); Imm Gran Abs Auto 0.03 X10*3/uL (0.00-0.03); Imm Gran Pct Auto 0.3 % (0.0-0.4); Lymphocytes Absolute Auto 1.5 X10*3/uL (1.2-4.9); Lymphocytes Percent Auto 13.6 % (20-40); Mean Corpuscular HGB Conc 33.2 g/dl (31.0-35.0); Mean Corpuscular Hemoglobin 28.6 pg (27.0-33.0); Mean Corpuscular Volume 86.2 fL (80.0-98.0); Mean Platelet Volume 9.7 fL (9.4-12.3); Monocytes Absolute Auto 0.6 X10*3/uL (0.1-1.2); Neutrophils Absolute Auto 7.7 x10*3/uL (2.0-8.3); Neutrophils Percent Auto 68.4 % (45-73); Platelet Count 292 X10*3/uL (160-400); Red Blood Count 5.14 X10*6/uL (4.20-5.50); Red Cell Distribution Width 12.8 % (11.0-16.0); White Blood Count 11.3 X10*3/uL (4.8-10.8)
[2022-12-20 12:23] LABS: Alanine Aminotransferase 16 U/L (0-31); Albumin Level 4.7 g/dL (3.5-5.0); Alkaline Phosphatase 116 U/L (39-117); Anion Gap 16 (12-20); Aspartate Amino Transferase 18 U/L (5-31); Bilirubin Total 0.7 mg/dL (0.0-1.0); Blood Urea Nitrogen 10 mg/dL (9-16); Carbon Dioxide 25 mmol/L (22-29); Chloride 104 mmol/L (96-108); Creatinine Clr Calc Pharmacy 69.8; Estimated Glomerular Filt Rate > 60; Glucose Random 108 mg/dL (60-115); Lipase 19 U/L (8-78); Potassium 4.5 mmol/L (3.3-5.1); Sodium 140 mmol/L (135-145); Total Protein 7.7 g/dL (6.5-8.0)
[2022-12-20 14:32] VITALS: BP 116/76; PULSE 98; RESP 20; TEMP 36.4; O2SAT 99
--- NOTE | 2022-12-20 15:55 | ED.GENADULT ---
HPI - General Adult General Chief complaint: Abdominal Pain <Montrell De La Cruz - Last Filed: 12/20/22 15:56> Stated complaint: Abd pain <Montrell De La Cruz - Last Filed: 12/20/22 15:56> Time Seen by Provider: 12/20/22 21:50 <Montrell De La Cruz - Last Filed: 12/20/22 15:56> Source: patient <Sanjiv Zheng MD - Last Filed: 12/20/22 23:27> Mode of arrival: ambulatory <Sanjiv Zheng MD - Last Filed: 12/20/22 23:27> Limitations: no limitations <Sanjiv Zheng MD - Last Filed: 12/20/22 23:27> History of Present Illness HPI narrative: Patient with no significant past medical history been having upper abdominal pain for last 5 days no history of GERD no history of falls and history of kidney stone patient was seen here yesterday with workup negative started on Carafate , patient comes back as the is getting better feeling nauseated patient denied any history of GERD/peptic ulcer disease no alcohol use no NSAID use has last colonoscopy 5 years ago was normal. Patient had 2 loose bowel movements 2 days ago not eating much Prior to my evaluation labs were done which showed significant eosinophilia of12.3% WBC count of 11.3, patient chemistry was normal with normal LFTs and lipase ultrasound of the abdomen was done which was negative for gallstones CT scan also showed nonspecific mesenteric inflammation <Sanjiv Zheng MD - Last Filed: 12/20/22 23:27> Related Data Home medications: Home Medications Medication Instructions Recorded Confirmed cholecalciferol (vitamin D3) 25 25 mcg PO DAILY 07/08/21 07/08/21 mcg (1,000 unit) capsule (Vitamin D3) sertraline 50 mg tablet 1.5 tab PO DAILY 07/08/21 07/08/21 Previous Rx's Medication Instructions Recorded methylprednisolone 4 mg tablets in See Rx Instructions PO PER PKG DIR 03/31/22 a dose pack (Medrol (Daniel)) #21 ea tizanidine 2 mg tablet 2 mg PO Q8H PRN muscle spasticity 04/01/22 #21 tabs tramadol 50 mg tablet 50 mg PO BID PRN pain, moderate 3 04/25/22 days #6 tabs rimegepant 75 mg disintegrating 75 mg PO Q OTHER DAY PRN migraine 12/15/22 tablet (Nurtec ODT) headache 30 days #16 tabs sucralfate 100 mg/mL oral 10 ml PO BID #414 mL 12/19/22 suspension (Carafate) dexamethasone 6 mg tablet 6 mg PO DAILY #7 tabs 12/20/22 oxycodone 5 mg tablet 5 mg PO Q6H PRN pain #20 tabs 12/20/22 pantoprazole 40 mg tablet,delayed 40 mg PO DAILY #30 tabs 12/20/22 release (Protonix) <Montrell De La Cruz - Last Filed: 12/20/22 15:56> Allergies/adverse reactions: Allergies Allergy/AdvReac Type Severity Reaction Status Date / Time No Known Allergies Allergy Verified 12/20/22 11:32 <Montrell De La Cruz - Last Filed: 12/20/22 15:56> [facility] Past Medical History Medical History: Medical History Anxiety COVID-19 vaccine series completed Heartburn Post-menopausal Sleep apnea <Montrell De La Cruz - Last Filed: 12/20/22 15:56> Surgical History: Surgical History H/O tubal ligation <Montrell De La Cruz - Last Filed: 12/20/22 15:56> Social History Social History: Social History Household Members: Spouse Patient Tobacco Use Status: Never used Tobacco Advance Directives: No Advance Directives Information Provided: Yes Current occupational status: employed 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 <Montrell De La Cruz - Last Filed: 12/20/22 15:56> Physical Exam ED Vital Signs: Vital Signs - 24 hr 12/20/22 11:32 12/20/22 14:32 12/20/22 22:09 Temperature 97.9 F 97.6 F Pulse Rate 73 98 76 Respiratory Rate 18 20 18 Blood Pressure 143/96 H 116/76 158/89 H Pulse Oximetry 99 99 99 Oxygen Delivery Method Room Air Room Air Room Air BMI result Body Mass Index 37.0 <Montrell De La Cruz - Last Filed: 12/20/22 15:56> Vital Signs - 24 hr 12/20/22 11:32 12/20/22 14:32 12/20/22 22:09 Temperature 97.9 F 97.6 F Pulse Rate 73 98 76 Respiratory Rate 18 20 18 Blood Pressure 143/96 H 116/76 158/89 H Pulse Oximetry 99 99 99 Oxygen Delivery Method Room Air Room Air Room Air BMI result Body Mass Index 37.0 <Sanjiv Zheng MD - Last Filed: 12/20/22 23:27> Appearance: Alert. Oriented X3. No acute distress. Eyes: No pallor or icterus ENT: Pharynx normal. Oral Mucosa moist Neck: Normal inspection. Neck supple. CVS: Normal heart rate and rhythm. Pulses normal. Respiratory: No respiratory distress. Equal air entry bilateral, no wheezing/rales/rhonchi Abdomen: Soft , tenderness in upper abdomen epigastric area Aleman sign negative Bowel sounds are present, no mass palpable, no CVA tenderness Skin: Skin warm and dry. Normal skin color. Normal skin turgor. Extremities: No lower extremity edema. No calf tenderness Neuro: Oriented X 3. No motor deficit. <Sanjiv Zheng MD - Last Filed: 12/20/22 23:27> Course Course Course Narrative: RME- 52-year-old female presents for evaluation of upper abdominal pain. The patient was seen yesterday and diagnosed with gastritis. She had minimal improvement with Mylanta. The patient returns for worsening pain. I had initially ordered on labs and ultrasound of the gallbladder to evaluate for cholecystitis. This was reassuring. The patient continues have discomfort, a CT scan of the pelvis was added on. <Montrell De La Cruz - Last Filed: 12/20/22 15:56> Medications Administered Discontinued Medications Generic Name Dose Route Start Last Admin Trade Name Freq PRN Reason Stop Dose Admin Dexamethasone Sodium Phosphate 10 mg 12/20/22 22:00 12/20/22 22:11 Dexamethasone Sod Phosphate 10 Mg/Ml Vial IVPUSH 12/20/22 22:01 10 mg ONCE ONE Administration Sodium Chloride 1,000 mls @ 999 mls/hr 12/20/22 22:00 12/20/22 22:07 Ns IV 12/20/22 23:00 999 mls/hr .Q1H1M ONE Administration Morphine Sulfate 4 mg 12/20/22 22:00 12/20/22 22:11 Morphine Sulfate 4 Mg/Ml Cartridge IVPUSH 12/20/22 22:01 4 mg ONCE ONE Administration Protocol Ondansetron HCl 4 mg 12/20/22 22:00 12/20/22 22:11 Ondansetron Hcl 4 Mg/2 Ml Vial IVPUSH 12/20/22 22:01 4 mg ONCE ONE Administration <Montrell De La Cruz - Last Filed: 12/20/22 15:56> Medications Administered Discontinued Medications Generic Name Dose Route Start Last Admin Trade Name Spencerq PRN Reason Stop Dose Admin Dexamethasone Sodium Phosphate 10 mg 12/20/22 22:00 12/20/22 22:11 Dexamethasone Sod Phosphate 10 Mg/Ml Vial IVPUSH 12/20/22 22:01 10 mg ONCE ONE Administration Sodium Chloride 1,000 mls @ 999 mls/hr 12/20/22 22:00 12/20/22 22:07 Ns IV 12/20/22 23:00 999 mls/hr .Q1H1M ONE Administration Morphine Sulfate 4 mg 12/20/22 22:00 12/20/22 22:11 Morphine Sulfate 4 Mg/Ml Cartridge IVPUSH 12/20/22 22:01 4 mg ONCE ONE Administration Protocol Ondansetron HCl 4 mg 12/20/22 22:00 12/20/22 22:11 Ondansetron Hcl 4 Mg/2 Ml Vial IVPUSH 12/20/22 22:01 4 mg ONCE ONE Administration <Sanjiv Zheng MD - Last Filed: 12/20/22 23:27> Medical Decision Making Medical Decision Making [facility] Narrative: Patient with upper abdominal pain workup essentially negative with normal ultrasound and CT scan showing only slight mesenteric haziness. Lab workup showed significant eosinophilia may be the cause for upper abdominal pain will give IV steroid IV fluids and pain med Patient feeling better now will discharge patient on Decadron , ppi advised to follow with [facility] <Sanjiv Zheng MD - Last Filed: 12/20/22 23:27> Lab Data [facility] Lab Attestation statement: I reviewed the patient's lab results. <Sanjiv Zheng MD - Last Filed: 12/20/22 23:27> Result Diagrams: 12/20/22 12:02 12/20/22 12:02 <Montrell De La Cruz - Last Filed: 12/20/22 15:56> Labs: Lab Results 12/20/22 12/20/22 Range/Units 12:02 12:02 WBC 11.3 H (4.8-10.8) X10*3/uL RBC 5.14 (4.20-5.50) X10*6/uL Hgb 14.7 (12.0-16.0) g/dl Hct 44.3 (37.0-47.0) % MCV 86.2 (80.0-98.0) fL MCH 28.6 (27.0-33.0) pg MCHC 33.2 (31.0-35.0) g/dl RDW 12.8 (11.0-16.0) % Plt Count 292 (160-400) X10*3/uL MPV 9.7 (9.4-12.3) fL Immature Gran % (Auto) 0.3 (0.0-0.4) % Neut % (Auto) 68.4 (45-73) % Lymph % (Auto) 13.6 L (20-40) % Patrick % (Auto) 5.0 (2-11) % Eos % (Auto) 12.3 H (0-4) % Baso % (Auto) 0.4 (0-2) % Lymph # (Auto) 1.5 (1.2-4.9) X10*3/uL Patrick # (Auto) 0.6 (0.1-1.2) X10*3/uL Eos # (Auto) 1.4 H (0.0-0.4) X10*3/uL Baso # (Auto) 0.0 (0.0-0.2) X10*3/uL Abs Immat Gran (auto) 0.03 (0.00-0.03) X10*3/uL Absolute Neuts (auto) 7.7 (2.0-8.3) x10*3/uL Absolute Nucleated RBC 0.000 (0.0-0.012) X10*3/uL Nucleated RBC % (auto) 0.0 (0.0-0.2) /100WBC Sodium 140 (135-145) mmol/L Potassium 4.5 (3.3-5.1) mmol/L Chloride 104 (96-108) mmol/L Carbon Dioxide 25 (22-29) mmol/L Anion Gap 16 (12-20) BUN 10 (9-16) mg/dL Creatinine 0.94 (0.5-1.4) mg/dL Estim Creat Clear Calc 69.8 Estimated GFR > 60 Random Glucose 108 (60-115) mg/dL Calcium 10.0 D (8.4-10.2) mg/dL Total Bilirubin 0.7 (0.0-1.0) mg/dL AST 18 (5-31) U/L ALT 16 (0-31) U/L Alkaline Phosphatase 116 (39-117) U/L Total Protein 7.7 (6.5-8.0) g/dL Albumin 4.7 (3.5-5.0) g/dL Lipase 19 (8-78) U/L <Montrell De La Cruz - Last Filed: 12/20/22 15:56> Lab Results 12/20/22 12/20/22 Range/Units 12:02 12:02 WBC 11.3 H (4.8-10.8) X10*3/uL RBC 5.14 (4.20-5.50) X10*6/uL Hgb 14.7 (12.0-16.0) g/dl Hct 44.3 (37.0-47.0) % MCV 86.2 (80.0-98.0) fL MCH 28.6 (27.0-33.0) pg MCHC 33.2 (31.0-35.0) g/dl RDW 12.8 (11.0-16.0) % Plt Count 292 (160-400) X10*3/uL MPV 9.7 (9.4-12.3) fL Immature Gran % (Auto) 0.3 (0.0-0.4) % Neut % (Auto) 68.4 (45-73) % Lymph % (Auto) 13.6 L (20-40) % Patrick % (Auto) 5.0 (2-11) % Eos % (Auto) 12.3 H (0-4) % Baso % (Auto) 0.4 (0-2) % Lymph # (Auto) 1.5 (1.2-4.9) X10*3/uL Patrick # (Auto) 0.6 (0.1-1.2) X10*3/uL Eos # (Auto) 1.4 H (0.0-0.4) X10*3/uL Baso # (Auto) 0.0 (0.0-0.2) X10*3/uL Abs Immat Gran (auto) 0.03 (0.00-0.03) X10*3/uL Absolute Neuts (auto) 7.7 (2.0-8.3) x10*3/uL Absolute Nucleated RBC 0.000 (0.0-0.012) X10*3/uL Nucleated RBC % (auto) 0.0 (0.0-0.2) /100WBC Sodium 140 (135-145) mmol/L Potassium 4.5 (3.3-5.1) mmol/L Chloride 104 (96-108) mmol/L Carbon Dioxide 25 (22-29) mmol/L Anion Gap 16 (12-20) BUN 10 (9-16) mg/dL Creatinine 0.94 (0.5-1.4) mg/dL Estim Creat Clear Calc 69.8 Estimated GFR > 60 Random Glucose 108 (60-115) mg/dL Calcium 10.0 D (8.4-10.2) mg/dL Total Bilirubin 0.7 (0.0-1.0) mg/dL AST 18 (5-31) U/L ALT 16 (0-31) U/L Alkaline Phosphatase 116 (39-117) U/L Total Protein 7.7 (6.5-8.0) g/dL Albumin 4.7 (3.5-5.0) g/dL Lipase 19 (8-78) U/L <Sanjiv Zheng MD - Last Filed: 12/20/22 23:27> Radiology Impression Discussion of test interpretation with radiology: I have reviewed the radiologist's reading. <Sanjiv Zheng MD - Last Filed: 12/20/22 23:27> Radiologist Impression: CT/CT abdomen pelvis wo IV con IMPRESSION: 1.? Scattered subcentimeter mesenteric lymph nodes with mild mesenteric fatty haziness, nonspecific finding of uncertain significance, that could be seen with mesenteric adenitis or reactive in the setting of gastroenteritis. 2.? Diverticulosis without evidence of acute diverticuliti <Sanjiv Zheng MD - Last Filed: 12/20/22 23:27> Discharge Plan Discharge Clinical Impression: Colitis, eosinophilic, Esophagitis with gastritis <Montrell De La Cruz - Last Filed: 12/20/22 15:56> Patient Disposition: Home, Self-Care <Montrell De La Cruz - Last Filed: 12/20/22 15:56> Instructions: Gastritis (ED), Allergic Esophagitis (ED) <Montrell De La Cruz - Last Filed: 12/20/22 15:56> Additional Instructions: Take medication as prescribed Avoid fried/caffeinated foods Follow-up with [facility] for endoscopy <Montrell De La Cruz - Last Filed: 12/20/22 15:56> Prescriptions: New pantoprazole [Protonix] 40 mg tablet,delayed release (DR/EC) 40 mg PO DAILY Qty: 30 0RF dexamethasone 6 mg tablet 6 mg PO DAILY Qty: 7 0RF oxycodone 5 mg tablet 5 mg PO Q6H PRN (Reason: pain) Qty: 20 0RF Rx Instructions: Partial Fill upon patient request. No Action methylprednisolone [Medrol (Daniel)] 4 mg tablets,dose pack See Rx Instructions PO PER PKG DIR Qty: 21 0RF Rx Instructions: PO PER PKG DIR tizanidine 2 mg tablet 2 mg PO Q8H PRN (Reason: muscle spasticity) Qty: 21 0RF tramadol 50 mg tablet 50 mg PO BID PRN (Reason: pain, moderate) 3 Days Qty: 6 0RF Nurtec ODT 75 mg tablet,disintegrating 75 mg PO Q OTHER DAY PRN (Reason: migraine headache) 30 Days Qty: 16 0RF sertraline 50 mg tablet 1.5 tab PO DAILY cholecalciferol (vitamin D3) [Vitamin D3] 25 mcg (1,000 unit) Capsule 25 mcg PO DAILY sucralfate [Carafate] 100 mg/mL suspension 10 ml PO BID Qty: 414 0RF <Montrell De La Cruz - Last Filed: 12/20/22 15:56> Referrals: Favio Power MD [Physician] - 1 week <Montrell De La Cruz - Last Filed: 12/20/22 15:56>
[2022-12-20] MEDS: 0.9 % Sodium Chloride 1,000 ML 999 ML IV (22:07)
[2022-12-20 22:09] VITALS: BP 158/89; PULSE 76; RESP 18; O2SAT 99
[2022-12-20] MEDS: Morphine Sulfate 4 MG/ML CARTRIDGE IVPUSH (22:11)
[2022-12-20] MEDS: dexAMETHasone sod phosphate 10 MG/ML VIAL IVPUSH (22:11)
[2022-12-20] MEDS: ondansetron HCL 4 MG/2 ML VIAL IVPUSH (22:11)
[2022-12-21] MEDS: Famotidine/PF 20 MG/2 ML VIAL IVPUSH (00:02)
== END 2022-12-21 00:21 | disposition home or self-care (01) ==
PROVIDERS: Physician Assistant; Emergency Provider Internal Medicine; PCP Internal Medicine
DX: K52.81 Eosinophilic gastritis or gastroenteritis (principal); K20.0 Eosinophilic esophagitis
CPT/HCPCS: 36415; 74176; 76705; 80053; 83690; 85025; 96374; 96375; 99283; 99284; J1100; J2270; J2405

== ENCOUNTER 2023-01-09 10:32 | Day surgery (SDC) | payer OTHER, SELFPAY ==
--- NOTE | 2023-01-08 12:04 | P.CONAN_ITS ---
Documented by User: Alesha Centeno NP 01/08/23 12:05 HPI - Anesthesia Eval Consult details Narrative: 52yo F for Upper Endoscopy PMFSH Active Problems Active Problems: All Active Problems (Updated 12/22/22 @ 00:00 by Kirk Oneal) Migraine headache with aura (Acute) Sacroiliac joint dysfunction of right side (Acute) Achilles tendinitis of left lower extremity (Acute) Rotator cuff impingement syndrome of right shoulder (Acute) Colon cancer screening (Acute) DOT (obstructive sleep apnea) (Acute) Past Medical History Medical History Anxiety COVID-19 vaccine series completed Heartburn Post-menopausal Sleep apnea Family History Family history of problems with anesthesia: No Surgical History Surgical History H/O tubal ligation History of Problems with Anesthesia: No Social History Social History Household Members: Spouse Patient Tobacco Use Status: Never used Tobacco Use of substances other than those prescribed or required for medical reasons: No Are you DNR?: No Advance Directives: No Advance Directives Information Provided: Yes Current occupational status: employed 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 Gender identity: Female Meds Allergies Allergy/AdvReac Type Severity Reaction Status Date / Time No Known Allergies Allergy Verified 12/20/22 11:32 Home Medications Medication Instructions Recorded Confirmed Last Taken Type cholecalciferol (vitamin D3) 25 25 mcg PO DAILY 07/08/21 07/08/21 Unknown History mcg (1,000 unit) capsule (Vitamin D3) sertraline 50 mg tablet 1.5 tab PO DAILY 07/08/21 07/08/21 Unknown History Exam Exam Date and Time: January 08, 2023 1204 Pertinent Lab Results Pertinent Lab Results: Laboratory Tests 12/20/22 12/20/22 12:02 12:02 WBC 11.3 H Hgb 14.7 Hct 44.3 Plt Count 292 Sodium 140 Potassium 4.5 Chloride 104 Carbon Dioxide 25 BUN 10 Creatinine 0.94 Assessment and Plan Assessment Anesthesia Assessment: Chart Reviewed Final Anesthetic Review Family History of Problems with Anesthesia: No History of Problems with Anesthesia: No Documented by User: Mirta Paul MD 01/09/23 13:36 HPI - Anesthesia Eval Consult details Narrative: 52yo F for Upper Endoscopy for epigastric pain PMFSH Past Medical History Medical History Anxiety COVID-19 vaccine series completed Heartburn Post-menopausal Sleep apnea Surgical History Surgical History H/O tubal ligation Social History Social History Household Members: Spouse Patient Tobacco Use Status: Never used Tobacco Use of substances other than those prescribed or required for medical reasons: No Are you DNR?: No Advance Directives: No Advance Directives Information Provided: Yes Current occupational status: employed 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 Meds Allergies Allergy/AdvReac Type Severity Reaction Status Date / Time No Known Allergies Allergy Verified 12/20/22 11:32 Home Medications Medication Instructions Recorded Confirmed Last Taken Type cholecalciferol (vitamin D3) 25 25 mcg PO DAILY 07/08/21 07/08/21 Unknown History mcg (1,000 unit) capsule (Vitamin D3) sertraline 50 mg tablet 1.5 tab PO DAILY 07/08/21 07/08/21 Unknown History Exam Airway Mallampati Class: II TM Dist: >3cm Neck ROM: Full Heart: r Lungs: cta Assessment and Plan Final Anesthetic Review NPO: Yes ASA Class: II Final Preanesthetic Review: No Changes in Pt Med Stat, Meds/Allgs Chart Rev iewed, Consent Obtained/Reviewed and Anes Risks/Benef Reviewed Patient Risk: Low Procedure Risk: Low Anesthetic Plan Anesthetic Plan: MAC: Disposition: Standard PACU
[2023-01-09 11:23] VITALS: BMI 35.2
[2023-01-09 11:54] VITALS: BP 114/76; PULSE 68; RESP 16; TEMP 36.6; O2SAT 98
--- NOTE | 2023-01-09 12:40 | MHC.SHP ---
Pre-Procedural Eval Section A Date of Service: 01/09/23 Section B Chief Complaint: Esophagitis, unspecified with bleeding Details of Present Illness: ct with possible mesenteric adenitis, feels improved now Relevant Family History (Specify if Yes): No Relevant Social History: None Present Medications: see Short Stay Collaborative assessment Medical History: Significant History (Anxiety COVID-19 vaccine series completed Heartburn Post-menopausal Sleep apnea) History of Previous Operations: Relevant previous surgery/procedure and date(s) (tubal ligation) Allergies: Allergies Allergy/AdvReac Type Severity Reaction Status Date / Time No Known Allergies Allergy Verified 12/20/22 11:32 Review of Systems Sugical H&P ROS: Negative: Constitution, Cardiovascular, Respiratory, Neurological, Psychiatric, Hem-Onc, Allergic/Immunologic, Gastrointestinal, Genitourinary, Musculoskeletal, Integumentary, Endocrine and Eyes/Ears/Nose/Throat Exam Surgical H&P Exam: Normal: HEENT, Normal: Heart, Normal: Lungs, Normal: Extremities, Normal: Abdomen, Normal: Skin and Normal: Neurological Plan Diagnosis/Plan: Unchanged I have reviewed the history and physical and performed a pertinent physical examination on my patient. No changes have occurred unless specified. EGD for further assessment Time Spent With Patient Time: Total time managing care of this patient today ____ minutes.
--- NOTE | 2023-01-09 12:43 | W.PM.OPN ---
Operative Note Operative Note Date of Service: 01/09/23 Narrative: Procedure Description: EGD Indication: esophagitis Anesthesia: MAC FLEXIBLE TRANSORAL UPPER GASTROINTESTINAL ENDOSCOPY UPPER ENDOSCOPY Consent: Indications for the procedure and potential complications of bleeding, perforation, reaction to medications and missed diagnosis were discussed with the patient and informed consent was obtained. Instrument: Olympus GIF H 190 J mid size upper endoscope Monitoring: Vital signs and clinical assessment, continuous EKG monitoring, Pulse oximetry, Carbon Dioxide monitoring and blood pressure monitoring were done throughout the procedure. Procedure: The patient was placed in the left lateral decubitis position and pre-procedure medications were administered and a bite block was placed. The endoscope was inserted into the mouth and advanced under direct vision to the third part of duodenum. A careful inspection was made as the upper endoscope was withdrawn including a retroflexed examination of the proximal stomach; Findings and interventions are described below. Findings: Larynx:normal Esophagus: GE junction at 38 cm, diaphragm hiatus at 38 cm, erythema around GEJ with few islands and short tongues of salmon pink tissue, bx taken to r/o Barretts, also bx taken from proximal and distal esophagus Stomach: streaky gastric erythema in antrum with erosions noted. Biopsies were obtained. Grade 2 flap valve on retroflexed examination of the cardia. Duodenum: Normal bulb and descending duodenum, bx taken Intervention: Biopsies as noted above Impression/Findings: possible barretts esophagitis erosive gastritis PLAN: if h pylori pos treat avoid nsaids cont with pantoprazole
[2023-01-09 13:18] VITALS: BP 124/73; PULSE 80; RESP 18; TEMP 36.2; O2SAT 98
[2023-01-09 13:46] VITALS: BP 118/77; PULSE 72; RESP 18; TEMP 36.2; O2SAT 99
== END 2023-01-09 14:25 | disposition home or self-care (01) ==
LOC: HO.SSS 10:33
PROVIDERS: PCP Internal Medicine; Visit Provider Internal Medicine Gastroenterology
PROC: 0DJ08ZZ Inspection of Upper Intestinal Tract, Via Natural or Artificial Opening Endoscopic (ICD-10-PCS; CPT 43235; principal; 2023-01-09 12:10)
DX: K20.91 Esophagitis, unspecified with bleeding (principal); K29.50 Unspecified chronic gastritis without bleeding; R12 Heartburn; F41.1 Generalized anxiety disorder; Z79.899 Other long term (current) drug therapy
CPT/HCPCS: 43239; 88305; 88342

== ENCOUNTER → 2023-01-17 09:20 | Outpatient (BNVA) | payer OTHER, SELFPAY | PROVIDERS: PCP Internal Medicine; Referring Provider Internal Medicine; Visit Provider Internal Medicine | DX: Z13.89 Encounter for screening for other disorder (principal) ==

== ENCOUNTER 2023-01-23 07:41 | Outpatient (REF) | payer OTHER, SELFPAY ==
--- NOTE | ~2023-01-23 | XR_ITS ---
EXAMINATION: XR WRIST, LEFT CLINICAL INFORMATION: Wrist pain COMPARISON: None available. TECHNIQUE: PA, lateral, and oblique views of the left wrist. FINDINGS: No fracture. Alignment is anatomic with normal joint spaces. No erosions. There is soft tissue swelling about the wrist. XR/XR wrist LT min 3V IMPRESSION: Soft tissue swelling about the wrist. No acute fracture or dislocation. If there is persistent clinical concern, follow-up films in 7-10 days may be obtained.
== END 2023-01-23 07:42 | disposition home or self-care (01) ==
LOC: HO.XRAY 07:41
PROVIDERS: PCP Internal Medicine; Visit Provider Internal Medicine
DX: M25.532 Pain in left wrist (principal)
CPT/HCPCS: 73110

== ENCOUNTER 2023-01-26 11:28 | Outpatient (REF) | payer OTHER, SELFPAY ==
[2023-01-26 13:13] LABS: MANUAL DIFF FLAG NO
[2023-01-26 13:21] LABS: Basophils Absolute Auto 0.1 X10*3/uL (0.0-0.2); Basophils Percent Auto 1.1 % (0-2); Eosinophils Absolute Auto 1.3 X10*3/uL (0.0-0.4); Eosinophils Percent Auto 17.4 % (0-4); Hematocrit 39.5 % (37.0-47.0); Hemoglobin 12.9 g/dl (12.0-16.0); Imm Gran Abs Auto 0.01 X10*3/uL (0.00-0.03); Imm Gran Pct Auto 0.1 % (0.0-0.4); Lymphocytes Absolute Auto 1.6 X10*3/uL (1.2-4.9); Lymphocytes Percent Auto 21.6 % (20-40); Mean Corpuscular HGB Conc 32.7 g/dl (31.0-35.0); Mean Corpuscular Volume 88.8 fL (80.0-98.0); Mean Platelet Volume 10.5 fL (9.4-12.3); Monocytes Absolute Auto 0.6 X10*3/uL (0.1-1.2); Monocytes Percent Auto 7.6 % (2-11); Neutrophils Absolute Auto 3.8 x10*3/uL (2.0-8.3); Neutrophils Percent Auto 52.2 % (45-73); Platelet Count 243 X10*3/uL (160-400); Red Blood Count 4.45 X10*6/uL (4.20-5.50); Red Cell Distribution Width 12.9 % (11.0-16.0); White Blood Count 7.2 X10*3/uL (4.8-10.8)
== END 2023-01-26 11:29 | disposition home or self-care (01) ==
LOC: HO.10HDL 11:28
PROVIDERS: Visit Provider Internal Medicine
DX: D72.10 Eosinophilia, unspecified (principal)
CPT/HCPCS: 36415; 85025

== ENCOUNTER → 2023-02-21 07:57 | Outpatient (BNVA) | payer OTHER, SELFPAY | PROVIDERS: PCP Internal Medicine; Visit Provider Advanced Practice Midwife ==

== ENCOUNTER 2023-04-18 09:16 | Outpatient (REF) | payer OTHER, SELFPAY | END 2023-04-18 09:17 | disposition home or self-care (01) | LOC: CF 09:16 | PROVIDERS: Visit Provider Internal Medicine | DX: M53.3 Sacrococcygeal disorders, not elsewhere classified (principal); Z79.899 Other long term (current) drug therapy | CPT/HCPCS: 27096; J2795; J3301; Q9967 ==

== ENCOUNTER 2023-05-14 09:18 | Outpatient (REF) | payer OTHER, SELFPAY ==
--- NOTE | ~2023-05-14 | MM_ITS ---
EXAMINATION: MM SCREENING DIGITAL BREAST TOMOSYNTHESIS, BILATERAL CLINICAL INFORMATION: Screening. Asymptomatic. The lifetime risk of breast cancer based on the Tyrer-Cuzick Model is 5.8%. COMPARISON: Mammography: This study is compared with prior exams dating back to 2017. TECHNIQUE: Digital breast tomosynthesis is performed in both the craniocaudal and mediolateral oblique views along with computer-aided detection (CAD). Synthesized 2D images are generated from the tomosynthesis. FINDINGS: There are scattered areas of fibroglandular density (ACR BI-RADS breast composition Category b). There are no significant masses, abnormal calcifications, or other abnormalities. There is a tissue marker present in the medial aspect of the right breast from prior benign percutaneous biopsy. MM/MM tomosynthesis screening BI IMPRESSION: No mammographic evidence of malignancy. ASSESSMENT: BI-RADS BI-RADS 2 - Benign Findings RECOMMENDATION: Routine annual mammography screening. 1 year F/U This examination should not preclude the clinical evaluation of a suspicious palpable abnormality. This patient's information was entered into a reminder system with a target due date for their next mammogram.
== END 2023-05-14 09:19 | disposition home or self-care (01) ==
LOC: HO.MAMMO 09:18
PROVIDERS: Visit Provider Internal Medicine
DX: Z12.31 Encounter for screening mammogram for malignant neoplasm of breast (principal)
CPT/HCPCS: 77063; 77067

== ENCOUNTER → 2023-05-14 09:30 | Outpatient (BNV) | payer OTHER, SELFPAY | PROVIDERS: Visit Provider Radiology Diagnostic Radiology | DX: Z12.31 Encounter for screening mammogram for malignant neoplasm of breast (principal) | CPT/HCPCS: 77063; 77067 ==

== ENCOUNTER 2023-12-17 13:08 | Outpatient (AMB) | payer OTHER, SELFPAY ==
--- NOTE | 2023-12-17 13:14 | A.OFFVIS_ITS ---
Intake Vital Signs 12/17/23 13:17 Height 5 ft BMI Reason not done Patient refused/unable BP 123/76 Blood Pressure Location Lt brachial Position Sitting Pulse 73 Pulse Oximetry (%) 98 Intake Visit Reasons: medication refill appointment Intake Note: Maria C presents in the office as a follow up CC: She is not having any concerns at this time. Frame Builder Required: No Allergies No Known Allergies Allergy (Verified 12/17/23 13:16) HPI medication refill appointment HPI Details 52-year-old female w/ hx of sleep apnea, GERD, here for f/u RECAP: seen previously for abdominal pain ED visits with diarrhea and pain CT abdomen pelvis was without any colitis but mild mesenteric inflammation with prominent lymph nodes. EGD 01/09/2023: Mild esophagitis ? Robles's esophagus. Gastritis. Normal duodenum. Path: active esophagitis She is also up-to-date on her colon cancer screening. Last colonoscopy in 06/2021: 1 8-10 mm polyp that was removed but could not be retrieved in ascending colon. Otherwise normal with adequate prep. Was advised a repeat colonoscopy in 5 years. 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 VITAL SIGNS:see workflow HEENT: Nonicteric sclerae, PERRLA, EOMI. Oropharynx clear. Moist mucous membranes. Conjunctivae appear well perfused. No thyroid mass. CHEST: Chest wall is nontender. HEART: Regular rate and rhythm without murmurs. LUNGS: Clear to auscultation bilaterally. ABDOMEN: Soft, positive bowel sounds, nontender, no organomegaly.no flank tenderness SKIN: No rash, no excessive bruising, petechiae, or purpura. NEUROLOGIC: Cranial nerves II-XII intact without motor/sensory deficit. A/P: 1/ GERD and path changes with active eso phagitis, doing well with PPI PLAN: 1/ cont with PPI, advised on lifestyle c hanges, weight loss and diet, taking multi vitamin and Mag, b12, periodic checks on levels 2/ offered to cut down dose to 20 mg but she wants to stay on 40 mg at this time [facility] Medical History Heartburn Sleep apnea Post-menopausal COVID-19 vaccine series completed Anxiety Surgical History Hx of colonoscopy History of esophagogastroduodenoscopy (EGD) H/O tubal ligation Family History Maternal Aunt Lung cancer Social History Household Members: Spouse Alcohol intake: current Alcohol intake frequency: holidays/special occasions only Patient Tobacco Use Status: Never used Tobacco service: No Current occupational status: employed 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 Sexual orientation: Straight/Heterosexual Gender identity: Female Female Reproductive History Menstrual Age of Menarche: 18 Assessment & Plan Assessment & Plan (1) GERD (gastroesophageal reflux disease): Code(s): K21.9 - Gastro-esophageal reflux disease without esophagitis Plan: A/P: 1/ GERD and path changes with active esophagitis, doing well with PPI PLAN: 1/ cont with PPI, advised on lifestyle changes, weight loss and diet, taking multi vitamin and Mag, b12, periodic checks on levels 2/ offered to cut down dose to 20 mg but she wants to stay on 40 mg at this time Medications: Refilled pantoprazole 40 mg PO DAILY 90 tabs 2RF Coding Level of Care Code Est Pt Level 3 (98283) Diagnoses GERD (gastroesophageal reflux disease) K21.9
[2023-12-17 13:17] VITALS: BP 123/76; PULSE 73; O2SAT 98
== END 2023-12-17 13:25 | disposition home or self-care (01) ==
PROVIDERS: PCP Student in an Organized Health Care Education/Training Program; Visit Provider Internal Medicine Gastroenterology
DX: K21.9 Gastro-esophageal reflux disease without esophagitis (principal)
CPT/HCPCS: 99213

== ENCOUNTER → 2023-12-17 13:08 | Outpatient (BNVA) | payer OTHER, SELFPAY | PROVIDERS: Visit Provider Internal Medicine Gastroenterology ==

== ENCOUNTER 2024-02-27 07:51 | Outpatient (AMB) | payer OTHER, SELFPAY ==
--- NOTE | 2024-02-27 07:57 | MHC.OFFVIS ---
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 She is doing well with no concerns. Attempting to eat a healthy diet with calcium and vitamin D and stays active with exercise. Currently sexually active. Denies any vaginal dryness or irritation. STI testing offered; she declined. Last pap smear; 2020, negative. Last mammogram; 2022. Colonoscopy is UTD. Denies any family history of breast, ovarian or colon cancer. [facility] Medical History (Updated 02/27/24 @ 08:10 by Tianna Luna CNM) Encounter for well woman exam with routine gynecological exam Heartburn Sleep apnea Post-menopausal COVID-19 vaccine series completed Anxiety Surgical History Hx of colonoscopy History of esophagogastroduodenoscopy (EGD) H/O tubal ligation Family History Maternal Aunt Lung cancer Social History Household Members: Spouse Alcohol intake: current Alcohol intake frequency: holidays/special occasions only Patient Tobacco Use Status: Never used Tobacco service: No Current occupational status: employed 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 Sexual orientation: Straight/Heterosexual Gender identity: Female Female Reproductive History Menstrual Age of Menarche: 18 control method: permanent sterilization Permanent Sterilization: BTL Menopause type: natural Total pregnancies: 2 Full term: 2 Number of Living Children: 2 Date of last pap smear: 02/15/21 (neg pap and hpv) History of abnormal pap smear: Yes (hx abn pap and colpo) Date of Mammogram: 05/14/23 (Birad 2) Review of Systems Const All systems reviewed & are unremarkable except as noted in HPI and below Reports as per HPI Eyes Reports no additional complaints ENT Reports no additional complaints Card Reports no additional complaints Resp Reports no additional complaints GI Reports as per HPI and Reports no additional complaints Reports as per HPI Musc Reports no additional complaints Skin/Breast Reports as per HPI Neuro Reports no additional complaints Psych Reports no additional complaints Endo Reports no additional complaints Jayro/Lymph Reports no additional complaints Aller/Immun Reports no additional complaints Physical Exam Vital Signs: Last Vital Signs BP 120/74 02/27/24 08:04 Const General: cooperative, healthy appearing, no acute distress, well developed and alert Orientation/consciousness: patient oriented x3 HEENT Head: Yes normal to inspection Eyes General: appearance normal, both eyes and all related structures Neck Neck: Yes normal visual inspection Thyroid: Thyroid normal Chest Chest palpation & inspection: normal inspection of the chest and other (no puckering, dimpling, peau de orange, retraction, discharge, masses) Breast/axilla inspection: normal inspection of the breasts Breast/axilla palpation: normal palpation of the breasts Resp Effort & Inspection: normal respiratory effort GI Inspection: Yes normal to inspection Palpation (GI): Soft to palpation Rectal Exam - Female: deferred General: Yes bladder normal to palpation External Female Exam: normal external appearance and normal appearance of the urethra Speculum Exam - Vagina: normal appearance of the vagina, normal palpation and normal vaginal discharge Speculum Exam - Cervix: normal appearance of the cervix and normal palpation Bimanual exam- vagina & uterus: normal bimanual exam, normal palpation, uterine size normal, bladder normal to palpation, normal palpation and non-tender Bimanual Exam- Adnexa, other: no masses Skin General skin exam: no rashes or lesions noted Rashes: no rashes Neuro General: patient oriented x3 Cognition (Neuro): normal cognition Extrem General: Yes normal to inspection Psych Attitude: cooperative Thought process: Normal thought process present Assessment & Plan Assessment & Plan (1) Encounter for well woman exam with routine gynecological exam: Code(s): Z01.419 - Encounter for gynecological examination (general) (routine) without abnormal findings Category: Medical Plan: Discussed: Current recommendations for pap smears per ASCCP guidelines. Breast awareness, periodic self breast exams and yearly mammogram. Maintain a healthy lifestyle, well balanced diet including Calcium 1,200 mg and Vitamin D 600 IU daily, and routine exercise. Contact the office with any postmenopausal bleeding. Patient verbalizes understanding and agrees to the plan of care. She was given opportunity to ask questions and all questions were answered to the best of my ability. RTO in 1 year for annual agriculture scientist exam. This note is constructed using voice recognition software. While every effort has been made to ensure accuracy, organic search lead errors may have been included. Coding Level of Care Code Est Pt Prev Care 40-64y(62747) Diagnoses Encounter for well woman exam with routine gynecological exam Z01.419
[2024-02-27 08:04] VITALS: BP 120/74
== END 2024-02-27 08:22 | disposition home or self-care (01) ==
PROVIDERS: PCP Student in an Organized Health Care Education/Training Program; Visit Provider Advanced Practice Midwife
DX: Z01.419 Encounter for gynecological examination (general) (routine) without abnormal findings (principal)
CPT/HCPCS: 99396

== ENCOUNTER → 2024-02-27 07:51 | Outpatient (BNVA) | payer OTHER, SELFPAY | PROVIDERS: Visit Provider Advanced Practice Midwife ==

== ENCOUNTER 2024-03-24 12:40 | Outpatient (REF) | payer OTHER, SELFPAY ==
--- NOTE | ~2024-03-24 | XR_ITS ---
EXAMINATION: XR RIBS, RIGHT CLINICAL INFORMATION: Chest pain, unspecified COMPARISON: Chest 12/19/2022 TECHNIQUE: PA chest and 4 views of the right ribs were obtained. FINDINGS: Lungs are clear. No consolidation, pneumothorax, or pleural effusion. The cardiomediastinal silhouette and pulmonary vasculature are normal. A radiopaque skin marker is placed at the level of the right 12th rib corresponding to the area of pain indicated by the patient. This lies below the level of the right hemidiaphragm. Overlying soft tissues obscure bony detail. There are mild degenerative changes of the thoracic spine. Ribs are intact. No fractures are identified. XR/XR ribs RT min 3V w CXR1V IMPRESSION: No displaced right rib fracture.
== END 2024-03-24 12:41 | disposition home or self-care (01) ==
LOC: HO.XRAY 12:40
PROVIDERS: Visit Provider Internal Medicine
DX: R07.9 Chest pain, unspecified (principal)
CPT/HCPCS: 71101

== ENCOUNTER 2024-05-08 13:20 | Outpatient (REF) | payer OTHER, SELFPAY ==
--- NOTE | ~2024-05-08 | FL_ITS ---
EXAMINATION: XR FLUOROSCOPY WITH IMAGES CLINICAL INFORMATION: Sacrococcygeal disorder. COMPARISON: None available. TECHNIQUE: Fluoroscopy Supervised By: Dr. Fer Harris. Fluoroscopy Time: 0.1 minutes. Cumulative Dose: 2.95 mGy. DAP: 0.0198 mGym2. Images: 2. FINDINGS: Intraoperative fluoroscopy and spot films were performed during a procedure in the OR. A needle projects over the region of the right SI joint. No contrast is seen injected. Please correlate with Dr. Harris' report for complete details. FL/FL guidance in treatment room IMPRESSION: Intraoperative fluoroscopy and spot films were obtained. Please see Dr. Harris' report for complete details.
== END 2024-05-08 13:21 | disposition home or self-care (01) ==
LOC: CF 13:20
PROVIDERS: Visit Provider Internal Medicine
DX: M53.3 Sacrococcygeal disorders, not elsewhere classified (principal)
CPT/HCPCS: 27096; J2795; J3301

== ENCOUNTER 2024-05-08 14:33 | Outpatient (AMB) | payer OTHER, SELFPAY ==
--- NOTE | 2024-05-08 14:33 | A.OFFVIS_ITS ---
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 Denies any recent cough, cold, infection, fever or other significant changes in medical history since last office visit. [facility] Medical History (Updated 03/24/24 @ 08:47 by Fer Harris MD) Encounter for well woman exam with routine gynecological exam Heartburn Sleep apnea Post-menopausal COVID-19 vaccine series completed Anxiety Surgical History Hx of colonoscopy History of esophagogastroduodenoscopy (EGD) H/O tubal ligation Family History Maternal Aunt Lung cancer Social History Household Members: Spouse Alcohol intake: current Alcohol intake frequency: holidays/special occasions only Patient Tobacco Use Status: Never used Tobacco service: No Current occupational status: employed 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 Immediately prior to starting the procedure, a time-out safety check was conducted. The patient's identification, procedure name, procedure site, and procedure laterality were confirmed with the patient. ? Patient was placed prone on the fluoroscopy table and the lumbosacral area was prepped using ChloraPrep and draped with sterile drapein standard fashion. The C-arm was rotated in a contralateral oblique fashion until the medial border of the iliac crest no longer foreshadowed the posterior sacroiliac joint line. The skin and subcutaneous tissue was anesthetized using 1 mL of 0.75% plain lidocaine with 1.5-inch 25-gauge needle in the middle region of the joint line.? A 3.5-inch 22-gauge spinal needle with small bend on the tip was slowly advanced towards the joint line, coaxial to the x-ray beam. Once bony content was obtained, the needle was easily slid into the intra-articular space.? Intra- articular needle position was confirmed using lateral fluoroscopy.? A total volume of 2.5mL of solution containing 40 mg triamcinolone and rest 0.5% of ropivacaine was injected intra-articularly. The stylet was reinserted and needle was removed. The patient tolerated the procedure well. Patient denied any lower extremity weakness or numbness. Patient was observed for 30 min and was discharged after fulfilling the standard discharge criteria. Coding 87385 - Sacroiliac Procedure code (CPT) selection complete Assessment & Plan Assessment & Plan (1) Sacroiliac joint dysfunction of both sides: Code(s): M53.3 - Sacrococcygeal disorders, not elsewhere classified Category: Medical Plan Patient is status post right sacroiliac joint injection. Patient tolerated procedure well and was discharged home in stable condition with discharge instructions. All questions were answered. We will follow-up via telephone or in clinic to assess response to therapy. A follow-up appointment was made during today's visit. Orders: Orders FL guidance in treatment room Today M53.3 - Sacrococcygeal disorders, not e lsewhere classified Coding Level of Care Code Procedure Only Diagnoses Sacroiliac joint dysfunction of both sides M53.3 CPT Codes Coding - Joint 9: 08192 - Sacroiliac ([id number])
== END 2024-05-08 15:31 | disposition home or self-care (01) ==
LOC: HO.PMCPRC 14:33
PROVIDERS: PCP Student in an Organized Health Care Education/Training Program; Visit Provider Internal Medicine
DX: M53.3 Sacrococcygeal disorders, not elsewhere classified (principal)
CPT/HCPCS: 27096

== ENCOUNTER 2024-05-27 07:36 | Outpatient (REF) | payer OTHER, SELFPAY ==
[2024-05-27 10:26] LABS: MANUAL DIFF FLAG NO
[2024-05-27 10:32] LABS: Basophils Absolute Auto 0.1 X10*3/uL (0.0-0.2); Basophils Percent Auto 1.6 % (0-2); Eosinophils Absolute Auto 0.4 X10*3/uL (0.0-0.4); Eosinophils Percent Auto 9.2 % (0-4); Hematocrit 41.2 % (37.0-47.0); Lymphocytes Absolute Auto 1.1 X10*3/uL (1.2-4.9); Lymphocytes Percent Auto 25.4 % (20-40); Mean Corpuscular Hemoglobin 29.2 pg (27.0-33.0); Mean Platelet Volume 9.9 fL (9.4-12.3); Monocytes Absolute Auto 0.4 X10*3/uL (0.1-1.2); Monocytes Percent Auto 9.7 % (2-11); Neutrophils Absolute Auto 2.3 x10*3/uL (2.0-8.3); Neutrophils Percent Auto 54.1 % (45-73); Platelet Count 232 X10*3/uL (160-400); Red Blood Count 4.79 X10*6/uL (4.20-5.50); Red Cell Distribution Width 13.2 % (11.0-16.0); White Blood Count 4.3 X10*3/uL (4.8-10.8)
[2024-05-27 11:06] LABS: HIV AB/AG Nonreactive (Nonreactive); HIV Num 1 0.16 S/CO (0.00-0.99); ~HepC Num1 0.13 S/CO (0.00-0.79); ~Hepatitis C Antibody Nonreactive (Nonreactive)
[2024-05-27 11:33] LABS: Anion Gap 14 (12-20); Blood Urea Nitrogen 16 mg/dL (9-16); Calcium 9.8 mg/dL (8.4-10.2); Carbon Dioxide 28 mmol/L (22-29); Chloride 102 mmol/L (96-108); Cholesterol 239 mg/dL (<200); Estimated Glomerular Filt Rate > 60; Glucose Random 94 mg/dL (60-115); HDL Cholesterol 60 mg/dL (>40); LDL Cholesterol Calculated 160 mg/dL (<100); Potassium 4.4 mmol/L (3.3-5.1); Sodium 140 mmol/L (135-145); Thyroid Stimulating Hormone 1.99 uIU/mL (0.32-4.0); Triglycerides 97 mg/dL (<150)
== END 2024-05-27 07:37 | disposition home or self-care (01) ==
LOC: HO.10HDL 07:36
PROVIDERS: Visit Provider Student in an Organized Health Care Education/Training Program
DX: Z00.00 Encounter for general adult medical examination without abnormal findings (principal); R53.83 Other fatigue; E78.5 Hyperlipidemia, unspecified; Z11.4 Encounter for screening for human immunodeficiency virus [HIV]; Z11.59 Encounter for screening for other viral diseases
CPT/HCPCS: 36415; 80048; 80061; 84443; 85025; 86803; 87389

== ENCOUNTER 2024-07-14 17:47 | Outpatient (REF) | payer OTHER, SELFPAY ==
--- NOTE | ~2024-07-14 | MR_ITS ---
EXAMINATION: MR SHOULDER WITHOUT CONTRAST, RIGHT CLINICAL INFORMATION: Shoulder pain. COMPARISON: None available. TECHNIQUE: MRI of the shoulder without contrast was performed on a high-field scanner. FINDINGS: ROTATOR CUFF: Moderate supraspinatus and infraspinatus tendinosis. Teres minor is intact. Mild subscapularis tendinosis. No rotator cuff tear is seen. No muscle atrophy or fatty infiltration. BICEPS: Intact. CORACOACROMIAL ARCH: The undersurface of the acromion is curved with no subacromial spur. Moderate acromioclavicular arthritis, with undersurface spurring of the distal clavicle. LABRUM/CAPSULE: Posterosuperior labrum is small in caliber. Superior labral degeneration. GLENOHUMERAL JOINT/MARROW: No fracture. No aggressive marrow-replacing lesion. No significant effusion. Fluid. MR/MR shoulder RT wo con IMPRESSION: 1. Moderate supraspinatus and infraspinatus tendinosis. Mild subscapularis tendinosis. No rotator cuff tear is seen. 2. Moderate acromioclavicular arthritis. 3. Posterosuperior labral degeneration. Superior labral degeneration. Electronically signed by: Juancarlos Caceres MD 07/16/2024 08:34 AM EDT
== END 2024-07-14 17:48 | disposition home or self-care (01) ==
LOC: HO.MRI 17:47
PROVIDERS: PCP Student in an Organized Health Care Education/Training Program; Visit Provider Internal Medicine
DX: M25.511 Pain in right shoulder (principal)
CPT/HCPCS: 73221

== ENCOUNTER 2024-09-10 07:59 | Outpatient (RCR) | payer OTHER, SELFPAY ==
--- NOTE | 2024-07-28 08:49 | MHC.PT.EP ---
[facility] [place] [facility] [place] [facility] [place] Office [address] Karl Mendes [address] [phone] F: [phone] F: [phone] F: [phone] F: [phone] Physical Therapy Plan of Care Date of Evaluation: 07/28/24 Date of Surgery: NA Diagnosis: Shoulder lesion, unspecified shoulder Other articular cartilage disorders or unspecified shoulder Supraspinatus tendonitis, labral tear of shoulder, degenerative Assessment: Maria C is a 53 year old female who is referred to PT for Shoulder lesion, unspecified shoulder, Other articular cartilage disorders or unspecified shoulder, Supraspinatus tendonitis, labral tear of shoulder, degenerative . She reports of having shoulder pain for about 2-3 years however it has gotten worse with time. She denies any trauma or falls. On PT examination she presented with mild TTP over supraspinatus and bicep tendon, 3-5/10 pain in R shoulder over head reaches and reaching side ways, decreased R shoulder and scap strength, and altered posture. She lives with her and is independent with self care activities but needs her husbands help for IADLS like cleaning, carrying heavy weights and vacuuming. 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 She would benefit from skilled PT to address the aforementioned impairments and improve tolerance to functional activities. Frequency and Duration: The patient will be seen 2/week for 5 weeks Short Term Goals: 1. Pt will have 50% decrease in pain which will enable her to perform self care activities without pain in 2 weeks. 2. Pt will be able to move her shoulder through full plane of motion without pain which will enable her to reach over head shelves without pain in 3 weeks. It Trainee Goals: 1. Pt will demonstrate an increase in muscle strength by 1 grade which will enable her to carry heavy weights, weight bear on R UE and vacuum without pain in 5 weeks. 2. Pt will be independent with [facility] for symptom management and maintenance following d/c in 5 weeks. Treatment Plan: Modalities to reduce pain, spasms and effusion. Manual therapy to restore motion and function. Therapeutic exercise to improve strength and flexibility. Neuromuscular re-education for posture and balance. Therapeutic activities to return to functional activities of daily living. Electronically signed by: Isabella Vivas PT DPT Please sign and return to therapist. Thank you for your referral.
--- NOTE | 2024-10-02 10:46 | MHC.PT.DC ---
[facility] [place] [facility] [place] Office [place] Office [address] [phone] F: [phone] F: [phone] F: [phone] F: [phone] Physical Therapy Discharge Report Diagnosis: Shoulder lesion, unspecified shoulder Other articular cartilage disorders or unspecified shoulder Supraspinatus tendonitis, labral tear of shoulder, degenerative Date of Surgery: NA Date of Evaluation: 07/28/24 Date of Discharge: 10/02/24 Treatments to Date: 11 Cancellations to Date: 0 No Shows to Date: 0 Discharge Status: Improved Function Independent with HEP Discharge Summary: Maria C attended 11 PT visits and made significant improvements with PT. She is independent with all HEP as well. She is therefore being d/c from PT. Electronically signed by: Isabella Vivas PT DPT Please sign and return to therapist. Thank you for your referral.
== END 2024-10-02 10:46 | disposition home or self-care (01) ==
LOC: HO.PT 07:59
PROVIDERS: PCP Student in an Organized Health Care Education/Training Program; Visit Provider Internal Medicine
DX: M75.90 Shoulder lesion, unspecified, unspecified shoulder (principal); M24.111 Other articular cartilage disorders, right shoulder
CPT/HCPCS: 97033; 97110; 97112; 97140; 97161; 97530

== ENCOUNTER 2025-02-20 07:58 | Outpatient (REF) | payer OTHER, SELFPAY ==
--- NOTE | ~2025-02-20 | US_ITS ---
EXAMINATION: MM DIAGNOSTIC DIGITAL BREAST TOMOSYNTHESIS, BILATERAL Limited right breast/axilla ultrasound. CLINICAL INFORMATION: Right axillary pain. COMPARISON: Mammography: Comparison is made with relevant prior exams. TECHNIQUE: Digital breast mammography with tomosynthesis is performed in both the craniocaudal and mediolateral oblique views along with computer-aided detection (CAD). FINDINGS: There are scattered areas of fibroglandular density (ACR BI-RADS breast composition Category b). Right breast marker clip in the lower inner quadrant. There are no significant masses, abnormal calcifications, or other abnormalities. Targeted color Doppler ultrasound scanning in the right axilla and upper outer quadrant area of patient's pain demonstrates normal fibronodular breast tissue. There is no sonographic abnormality. Results are provided to the patient at time of visit by the technologist. US/US breast RT limited mamm only IMPRESSION: Left: Negative. Right: No mammographic or sonographic abnormality in the upper outer quadrant to account for the patient's pain. Recommend clinical evaluation and follow-up. ASSESSMENT: BI-RADS BI-RADS 2 - Benign Findings RECOMMENDATION: 1 year F/U This patient's information was entered into a reminder system with a target due date for their next mammogram. Electronically signed by: Milena Simental DO 02/20/2025 09:57 AM EDT
--- OUTSIDE RECORDS SUMMARY | 2025-02-20 08:03 | XMS_ITS | Patient Health Record ---
Author Organization [employer] [facility] Address [address] [place] [address] [address] [place] [address] Care Team Providers Care Pull Socket Assembler Name Role Phone ELADIO BO Primary Care Provider Unavailable Mariana Miller Unavailable [phone] Allergies Allergen (clinical drug ingredient) Drug/Non Drug Allergy documented on EMR Reaction Allergy Type Onset Date Status acetaminophen / oxycodone PERCOCET Nausea/Vomiting /Diarrhea Drug Allergy Active Reason For Referral No Information Medications Medication SIG (Take, Route, Fr equency, Duration) Notes Start Date End Date Status Calcium-Carb 600 + D 1 ORAL daily for -3 Joshua-MJ 3 Active Multivitamins 1 ORAL daily for -3 Joshua-MJ 01/06/2013 Active Immunizations Vaccine Route Administration Date Status Comme nts Influenza, live, intranasal Intramuscular 11/28/2011 Pendi ng Tdap Intramuscular 11/28/2011 Pending Problems Problem Type SNOMED Code ICD Code Onset Dates Problem Status W/U Status Risk Notes Problem Atypical squamous cells on cervical Papanicolaou smear cannot exclude high grade squamous intraepithelial lesion (814407595) Papanicolaou smear of cervix with atypical squamous cells cannot exclude high grade squamous intraepithelial lesion (ASC-H) (795.02) Active confirmed Diag Plan Of Treatment Pending Test Test Name Order Date MAMMOGRAM, SCREENING 03/01/2015 Insurance Providers Payer Name Payer Address Payer Phone Subscriber Number Group Number Insured Name Patient Relationship to Insured Coverage Start Date Coverage End Date [employer] [place] [address] [place] [phone] [id number] ADRIANAMURRAY NEVAREZ Self - patient is the insured Medical (General) History Medical History History ICD Code Papanicolaou smear of cervix with atypical squamous cells cannot exclude high grade squamous intraepithelial lesion (ASC-H) Surgical History Surgery Date(Month/Year) BTL (laparoscopic) R breast needle bx, benign ( apocrine metaplasia, ductal epithelial hyplerplasia without atypia, and dense fibrotic stroma. the report states the post-bx mammogram showed that the deployed clip was in correct location.
--- OUTSIDE RECORDS SUMMARY | 2025-02-20 08:03 | XMS_ITS | Data Portability ---
Author Organization [facility], Main Office Address [address] [facility] [address] [place] [id number] Care Team Providers Care Machine Tool Builder Name Role Phone ALLI MARS Patient Financial Advocate DONITA PAYNE Master Sheet Clerk ALLAN MAYA Hosiery Bagger DAIN BAIRD Primary Care Provider Assessment No assessment recorded. Plan of Treatment Reminders Order Date Submit Date Provider Last Modified By Organization Details Last Modified Time Details Appointments PE EST 2024 08:15A M DAIN BAIRD MD Not available Not available Not available Lab CBC w/ auto diff [facility]24 [facility]25 [facility], [address], [address], 01/28/2025 15:50:46 epstei n-mejias virus (ebv) IgG + IgM panel, serum 2024 025 [facility], [address], [address], 01/28/2025 15:50:46 cytome galovi marin (cmv) igg Ab, serum 2024 025 [employer], [address], [address], 01/28/2025 15:50:46 lipid panel, serum 2023 024 [facility], [address] [place] [address] [place], [address], 05/28/2024 11:07:31 BMP, serum or plasma 2023 024 [facility], [address] [place] [address] [place], [address], 12/12/2024 09:33:02 CBC w/ auto diff 2023 024 [facility], [address] [place] [address] [place], [address], 05/27/2024 11:06:36 TSH, serum or plasma 2023 024 [email or web address], [address] [place] [address] [place], [address], 12/12/2024 09:33:02 hepati tis C virus Ab, serum 2023 024 [facility], [address] [place] [address] [place], [address], 05/16/2024 10:29:22 HIV 1+2 AB + HIV 1 p24 Ag, qualit ative immuno assay, serum 2023 024 [facility], [address] [place] [address] [place], [address], 05/16/2024 10:29:21 lipid panel, serum 2021 022 [facility], [address] [place] [address], [address], 11/29/2021 13:24:04 Referral None record ed. Procedures None record ed. Surgeries None record ed. Imaging US, axilla - right sided pain, ordere d to check for lympha denopa thy 2024 025 [email or web address] Not available 01/28/2025 15:50:46 MAMMO, diagno stic, digita l, unilat eral - right side, patien t having pain in the right axilla radiat ing down to the right outer quadra nt of the breast 2024 025 [email or web address] [facility] Orders, [address], [place], [address], 02/17/2025 13:49:19 Medication Orders None record ed. Patient TargetsNo targets recorded. Patient Instructions Encounter Date Encounter Id Patient Instructions Last Modified By Organization Details Last Modified Time 11/10/2021 [id number] body mass index: care instructions [email or web address] Not available 11/10/2021 15:51:30 learning about healthy weight [email or web address] Not available 11/10/2021 15:51:30 11/16/2022 [id number] headache: care instructions [email or web address] Not available 11/16/2022 16:40:22 05/16/2024 [id number] Well Visit, Ages 18 to 65: Care Instructions Not available 05/16/2024 10:28:11 preventing falls: care instructions Not available 05/16/2024 10:28:11 medical record request* [email or web address] Not available 05/16/2024 14:08:25 HIV testing: care instructions Not available 05/16/2024 10:28:11 Reason for Referral None Reported. Results Created Date Observation Date Name Description Value Unit Range Abnormal Flag Note LastModifiedBy Organization Detail LastModifiedTime 05/27/20 24 05/27/2024 lipid panel , serum triglycerdie s 97 Not Available [facility] (Medical Records) [address] [place] [address], [address], 05/28/2024 11:06:04 05/27/20 24 05/27/2024 lipid panel , serum cholesterol 239 Not Available [facility] (Medical Records) [address] [place] [address], [address], 05/28/2024 11:06:04 05/27/20 24 05/27/2024 lipid panel , serum LDL 160 Not Available [facility] (Medical Records) [address] [place] [address], [address], 05/28/2024 11:06:04 05/27/20 24 05/27/2024 lipid panel , serum HDL 60 Not Available [facility] (Medical Records) [address] [place], [address], 05/28/2024 11:06:04 05/27/20 24 05/27/2024 CBC w/ auto diff WBC 4.3 Not Available [facility] (Medical Records) [address] [place] [address], [address], 05/27/2024 11:05:39 05/27/20 24 05/27/2024 CBC w/ auto diff RBC 4.79 Not Available [facility] (Medical Records) [address] [place] [address], [address], 05/27/2024 11:05:39 05/27/20 24 05/27/2024 CBC w/ auto diff HGB 14 Not Available [facility] (Medical Records) [address] [place] [address], [address], 05/27/2024 11:05:39 05/27/20 24 05/27/2024 CBC w/ auto diff HCT 41.2 Not Available [facility] (Medical Records) [address] [place] [address], [address], 05/27/2024 11:05:39 05/27/20 24 05/27/2024 CBC w/ auto diff plt 232 Not Available [facility] (Medical Records) [address] [place] [address], [address], 05/27/2024 11:05:39 01/16/20 25 01/16/2025 CBC WITH DIFFE RENTI AL/PL ATELE T WBC 6.5 x10e3 /uL 3.4-10 .8 normal Not Available [facility] ([facility]) [address] [facility], [place], [address], 01/16/2025 12:05:57 01/16/20 25 01/16/2025 CBC WITH DIFFE RENTI AL/PL ATELE T RBC 4.05 x10e6 /uL 3.77-5 .28 normal Not Available [facility] ([facility]) [address] [place], [address], 01/16/2025 12:05:57 01/16/20 25 01/16/2025 CBC WITH DIFFE RENTI AL/PL ATELE T hemoglobin 11.3 g/dL 11.1-1 5.9 normal Not Available [facility] ([facility]) [address] [place], [address], 01/16/2025 12:05:57 01/16/20 25 01/16/2025 CBC WITH DIFFE RENTI AL/PL ATELE T hematocrit 34.1 % 34.0-4 6.6 normal Not Available [facility] ([facility]) [address] [place], [address], 01/16/2025 12:05:57 01/16/20 25 01/16/2025 CBC WITH DIFFE RENTI AL/PL ATELE T MCV 84 fL 79-97 normal Not Available [facility] ([facility]) [address] [place], [address], 01/16/2025 12:05:57 01/16/20 25 01/16/2025 CBC WITH DIFFE RENTI AL/PL ATELE T MCH 27.9 pg 26.6-3 3.0 normal Not Available [facility] ([facility]) [address] [place], [address], 01/16/2025 12:05:57 01/16/20 25 01/16/2025 CBC WITH DIFFE RENTI AL/PL ATELE T MCHC 33.1 g/dL 31.5-3 5.7 normal Not Available [facility] ([facility]) [address] [place], [address], 01/16/2025 12:05:57 01/16/20 25 01/16/2025 CBC WITH DIFFE RENTI AL/PL ATELE T RDW 14.9 % 11.7-1 5.4 Not Available [facility] ([facility]) [address] [facility], [place], [address], 01/16/2025 12:05:57 01/16/20 25 01/16/2025 CBC WITH DIFFE RENTI AL/PL ATELE T platelets 261 x10e3 /uL 150-45 0 normal Not Available [facility] ([facility]) [address] [facility], [place], [address], 01/16/2025 12:05:57 01/16/20 25 01/16/2025 CBC WITH DIFFE RENTI AL/PL ATELE T neutrophils 52 % not estab. normal Not Available [facility] ([facility]) [address] [facility], [place], [address], 01/16/2025 12:05:57 01/16/20 25 01/16/2025 CBC WITH DIFFE RENTI AL/PL ATELE T lymphs 26 % not estab. normal Not Available [facility] ([facility]) [address] [facility], [place], [address], 01/16/2025 12:05:57 01/16/20 25 01/16/2025 CBC WITH DIFFE RENTI AL/PL ATELE T monocytes 6 % not estab. normal Not Available [facility] ([facility]) [address] [facility], [place], [address], 01/16/2025 12:05:57 01/16/20 25 01/16/2025 CBC WITH DIFFE RENTI AL/PL ATELE T eos 15 % not estab. normal Not Available [facility] ([facility]) [address] [facility], [place], [address], 01/16/2025 12:05:57 01/16/20 25 01/16/2025 CBC WITH DIFFE RENTI AL/PL ATELE T basos 1 % not estab. normal Not Available [facility] ([facility]) [address] [place], [address], 01/16/2025 12:05:57 01/16/20 25 01/16/2025 CBC WITH DIFFE RENTI AL/PL ATELE T immature cells [employer] Not Available [facility] ([facility]) [address] [place], [address], 01/16/2025 12:05:57 01/16/20 25 01/16/2025 CBC WITH DIFFE RENTI AL/PL ATELE T neutrophils (absolute) 3.4 x10e3 /uL 1.4-7. 0 normal Not Available [facility] ([facility]) [address] [place], [address], 01/16/2025 12:05:57 01/16/20 25 01/16/2025 CBC WITH DIFFE RENTI AL/PL ATELE T lymphs (absolute) 1.7 x10e3 /uL 0.7-3. 1 normal Not Available [facility] ([facility]) [address] [place], [address], 01/16/2025 12:05:57 01/16/20 25 01/16/2025 CBC WITH DIFFE RENTI AL/PL ATELE T monocytes(ab solute) 0.4 x10e3 /uL 0.1-0. 9 normal Not Available [facility] ([facility]) [address] [place], [address], 01/16/2025 12:05:57 01/16/20 25 01/16/2025 CBC WITH DIFFE RENTI AL/PL ATELE T eos (absolute) 1.0 x10e3 /uL 0.0-0. 4 above high normal Not Available [facility] ([facility]) [address] [place], [address], 01/16/2025 12:05:57 01/16/20 25 01/16/2025 CBC WITH DIFFE RENTI AL/PL ATELE T baso (absolute) 0.1 x10e3 /uL 0.0-0. 2 normal Not Available [facility] ([facility]) [address] [facility], [place], [address], 01/16/2025 12:05:57 01/16/20 25 01/16/2025 CBC WITH DIFFE RENTI AL/PL ATELE T immature granulocytes 0 % not estab. Not Available [facility] ([facility]) [address] [facility], [place], [address], 01/16/2025 12:05:57 01/16/20 25 01/16/2025 CBC WITH DIFFE RENTI AL/PL ATELE T immature grans (abs) 0.0 x10e3 /uL 0.0-0. 1 Not Available [facility] ([facility]) [address] [facility], [place], [address], 01/16/2025 12:05:57 01/16/20 25 01/16/2025 CBC WITH DIFFE RENTI AL/PL ATELE T NRBC [employer] Not Available [facility] ([facility]) [address] [facility], [place], [address], 01/16/2025 12:05:57 01/16/20 25 01/16/2025 CBC WITH DIFFE RENTI AL/PL ATELE T hematology comments: [employer] Not Available [facility] ([facility]) [address] [place], [address], 01/16/2025 12:05:57 01/16/20 25 01/16/2025 EBVCA (IGG/ M) ebv Ab vca, IgM <36.0 U/mL 0.0-35 .9 Negat umberto <36.0 Equiv ocal 36.0 - 43.9 Posit umberto >43.9 Not Available [facility] ([facility]) [address] [place], [address], 01/16/2025 12:05:58 01/16/20 25 01/16/2025 EBVCA (IGG/ M) ebv Ab vca, IgG <18.0 U/mL 0.0-17 .9 Negat umberto <18.0 Equiv ocal 18.0 - 21.9 Posit umberto >21.9 Not Available [facility] ([facility]) [address] [place], [address], 01/16/2025 12:05:58 01/16/2001/16/2025 CYTOM EGALO VIRUS (CMV) AB, IGG cytomegalovi marin (CMV) Ab, IgG <0.60 U/mL 0.00-0 .59 Negat umberto <0.60 Equiv ocal 0.60 - 0.69 Posit umberto >0.69 Not Available [facility] ([facility]) [address] [facility], [place], [address], 01/16/2025 12:05:59 05/09/20 22 05/08/2022 MAMMO , scree eduardo, digit al, bilat eral No observ ation record ed. [email or web address] [address] [place], [address], 05/24/2022 10:02:38 05/10/20 22 05/08/2022 MAMMO , scree eduardo, digit al, bilat eral No observ ation record ed. [email or web address] [facility] [address] [place] [address] [place], [address], 05/24/2022 10:02:38 06/03/20 23 05/14/2023 MAMMO , scree eduardo, digit al, bilat eral No observ ation record ed. [address] [place], [address], 06/04/2023 13:14:51 07/16/20 24 07/14/2024 MRI, susana gibson, w/o contr ast No observ ation record ed. [facility] (Medical Records) [address] [facility], [place], [address], 07/16/2024 13:59:59 Result Notes None recorded. Problems Name Problem SNOMED Code Status Onset Date Resolution Date Notes Provider Name and Address Organization Details Recorded Time Patient status finding 964246244 Completed 12/20/2015 Ana fallon [facility] 6 09:36:20 Influenz a vaccine needed 92040875360 06 Completed 12/20/2015 Ana fallon [facility] 6 09:36:20 Influenz a vaccine needed 94715474080 06 Completed 201205/05/2014 RECORDED 04/29/20 13 12:59PM BY JEWELL ABARCA MA, CLAUDYATI ON/ADDEN DUM Ana fallon [facility] 6 09:36:19 Adult health examinat ion Completed 12/20/2015 Ana fallon [facility] 6 09:36:20 Adult health examinat ion Completed 201205/05/2014 IMPRESSI ON: PAP AND MAMMO UTD, IS ON VITAMIN D, EXERCISE S ALL GOOD AT HOME, HASD A CHOELSTE ROL DONE AT WORK THAT WAS NL, PT IWLL SEND ME LEVEL; RECORDED 04/29/20 13 12:59PM BY JEWELL ABARCA MA, ANNOTATI ON/ADDEN DUM Ana fallon [facility] 6 09:36:19 Pure hypercho lesterol emia 826449925 Completed 12/22/2016 VIC Lopez [facility] 7 13:42:53 Pain in limb 03130373 Completed 12/20/2015 Ana fallon [facility] 6 09:36:20 Screenin g for malignan t neoplasm of breast Completed 201205/05/2014 RECORDED 04/29/20 13 12:59PM BY JEEWLL ABARCA MA, ANNOTATI ON/ADDEN DUM Ana fallon [facility] 6 09:36:19 Administ ration of bacteria l and viral vaccine Completed 201005/05/2014 RECORDED 03/16/20 11 1:29PM BY HALI LEMOS, OFFICE VISIT Ana fallon [facility] 6 09:36:19 Headache 00536309 Completed 12/20/2015 Ana fallon [facility] 6 09:36:20 Influenz a vaccine needed 60672749584 06 Completed 201305/28/2014 RECORDED 04/16/20 14 3:40PM BY HALI LEMOS, EFRAÍN ON/ADDEN DUM Ana fallon [facility] 6 09:36:19 Adult health examinat ion Completed 201305/28/2014 IMPRESSI ON: PAP FOLLOWED BY DEPUTY JAILER, ABN AND WILL GET REPEAT 02/02, MAMMO UTD, IS ACTIVE [facility].; RECORDED 04/16/20 14 3:40PM BY EFRAÍN LOPEZ ON/ADDEN DUM Ana fallon [facility] 6 09:36:19 Screenin g for malignan t neoplasm of breast Completed 201205/28/2014 RECORDED 04/29/20 13 12:59PM BY JEWELL ABARCA MA, CLAUDYATI ON/ADDEN DUM Ana fallon [facility] 6 09:36:19 Administ ration of bacteria l and viral vaccine Completed 201005/28/2014 RECORDED 03/16/20 11 1:29PM BY HALI LEMOS, OFFICE VISIT Ana fallon [facility] 6 09:36:19 Shoulder joint pain 279320812 Completed 12/20/2015 Ana fallon [facility] 6 09:36:20 Influenz a vaccine needed 90058711906 06 Completed 201305/29/2014 RECORDED 04/16/20 14 3:40PM BY EFRAÍN LOPEZ ON/ADDEN DUM Ana fallon [facility] 6 09:36:19 Adult health examinat ion Completed 201305/29/2014 IMPRESSI ON: PAP FOLLOWED BY DEPUTY JAILER, ABN AND WILL GET REPEAT 02/02, MAMMO UTD, IS ACTIVE [facility].; RECORDED 04/16/20 14 3:40PM BY EFRAÍN LOPEZ ON/ADDEN DUM Ana fallon [facility] 6 09:36:19 Screenin g for malignan t neoplasm of breast Completed 201205/29/2014 RECORDED 04/29/20 13 12:59PM BY JEWELL ABARCA MA, EFRAÍN ON/ADDEN DUM Ana fallon [facility] 6 09:36:20 Administ ration of bacteria l and viral vaccine Completed 201005/29/2014 RECORDED 03/16/20 11 1:29PM BY HALI LEMOS, OFFICE VISIT Ana fallon [facility] 6 09:36:19 Upper respirat ory infectio n 96286957 Completed 12/20/2015 Ana fallon [facility] 6 09:36:20 Low back pain 435742347 Completed 05/16/2024 DAIN BAIRD MD [address] [facility] [address], [facility] [place], [address] , [facility] 10:35:09 Inflamma tion of sacroili ac joint 30405441 Active under good control DAIN BAIRD MD [address], [place], [address], [facility] 4 10:35:07 Hypercho lesterol emia 63483660 Active Ana Kunal fallon [facility] 6 09:50:49 Pain of wrist region 66831180 Completed 12/22/2016 VIC Lopez, [facility] 7 13:43:04 Anxiety 68006545 Active 2017 in remissio n DAIN BAIRD MD [address], [place], [address], [facility] 4 10:34:56 Pain in axilla 958884357 Active 2024 DAIN BAIRD MD [address], [place], [address], [facility] 5 15:34:47 Problem Notes None recorded. Procedures Surgical History Date Name Laterality Status Provider Name and Address Organization Details Recorded Time 3 Endoscopic us exam esoph completed Linnette Schwarz [facility] 01/09/2023 13:24:47 2 Most Recent Mammogram completed Natalee Noble [facility] 05/24/2022 10:02:25 2 Mammogram screening completed Natalee Noble [facility] 05/24/2022 10:00:38 1 Colonoscopy completed Linnette Schwarz [facility] 05/19/2024 10:13:17 1 Date of Last Colonoscopy completed Hali Lemos MA [facility] 11/10/2021 15:20:52 9 Date of Last Pap Smear completed Monica Montero RN [facility] 09/08/2019 09:21:08 Tubal Ligation completed Hali Lemos MA [facility] 11/04/2020 08:34:07 Imaging Results Imaging Date Name Status LastModified by Organiz ation Details LastModified Time 05/08/2022 MAMMO, screening, digital, bilateral completed [email or web address] [place], [address], 05/24/2022 10:02:38 05/08/2022 MAMMO, screening, digital, bilateral completed [facility] [address] [place] [address] [place], [address], 05/24/2022 10:02:38 05/14/2023 MAMMO, screening, digital, bilateral completed [address] [place], [address], 06/04/2023 13:14:51 07/14/2024 MRI, shoulder, w/o contrast completed [facility] (Medical Records) [address] [facility], [place], [address], 07/16/2024 13:59:59 Procedure Notes None recorded. Medical Equipment None Reported. Allergies No known drug allergies Medications Name Sig Start Date Stop Date Status Note LastModified by Organization Details LastModified Time cyclobenz aprine 10 mg tablet Take 1 tablet 3 times a day by oral route for 5 days. 2014 active Not Available Not Available Not Avai lable amoxicill in 500 mg capsule TAKE 1 CAPSULE BY MOUTH THREE TIMES A DAY 01/15 completed Not Available Not Available Not Available tizanidin e 2 mg tablet TAKE 2 MG ORALLY EVERY 8 HOURS NEEDED FOR MUSCLE SPASTICI TY 11/16 completed Not Available Not Available Not Available azithromy lucy 250 mg tablet 07/22 completed Not Available Not Available Not Available ibuprofen 800 mg tablet TAKE 1 TABLET BY MOUTH THREE TIMES A DAY active Not Available Not Available No t Available sucralfat e 100 mg/mL oral suspensio n TAKE 10 ML ORALLY 2 TIMES A DAY 05/22 completed Not Available Not Available Not Available meloxicam 15 mg tablet TAKE 1 TABLET BY MOUTH EVERY DAY 11/16 completed Not Available Not Available Not Available ondansetr on HCl 4 mg tablet TAKE 1 TABLET BY MOUTH 3 TIMES PER DAY NEEDED FOR NAUSEA FOR 4 DAYS 05/16 completed Not Available Not Available Not Available prednison e 20 mg tablet TAKE 2 TABLETS BY MOUTH DAILY FOR 3 DAYS, THEN 1 TABLET DAILY FOR 3 DAYS 05/16 completed Not Available Not Available Not Available dexametha sone 6 mg tablet TAKE 1 TABLET BY MOUTH EVERY DAY 05/22 completed Not Available Not Available Not Available Seroquel 25 mg tablet Take 1 tablet every day by oral route. active for sleep Not Available Not Available Not Available permethri n 5 % topical cream PLEASE SEE ATTACHED FOR DETAILED DIRECTIO NS 05/22 completed Not Available Not Available Not Available penicilli n V potassium 500 mg tablet 12/22 completed Not Available Not Available Not Available acetamino phen 300 mg-codein e 30 mg tablet 05/16 completed Not Available Not Available Not Available tramadol 50 mg tablet TAKE 1 TABLET BY MOUTH 2 TIMES A DAY NEEDED FOR MODERATE PAIN X3 DAYS 11/16 completed Not Available Not Available Not Available acetamino phen 500 mg tablet TAKE 2 TABLETS BY MOUTH EVERY 8 HOURS active Not Available Not Available No t Available oxycodone -acetamin ophen 5 mg-325 mg tablet Take 1 tablet every 6 hours by oral route as needed for 4 days. 2014 active Not Available Not Available Not Avai lable aspirin 325 mg tablet,de layed release TAKE 1 TABLET BY MOUTH DAILY 11/16 completed Not Available Not Available Not Available pantopraz ole 40 mg tablet,de layed release TAKE 1 TABLET BY MOUTH EVERY DAY active Not Available Not Available No t Available erythromy lucy 5 mg/gram (0.5 %) eye ointment APPLY 1/2 INCH TO LEFT EYE 4 TIMES A DAY FOR 7 DAYS 11/04 completed Not Available Not Available Not Available oseltamiv ir 75 mg capsule TAKE 1 CAPSULE BY MOUTH TWICE A DAY 5 DAYS 01/15 completed Not Available Not Available Not Available tobramyci n 0.3 % eye drops 07/22 completed Not Available Not Available Not Available prednison e 50 mg tablet Take 1 tablet every day by oral route for 7 days. 2014 active Not Available Not Available Not Avai lable gabapenti n 300 mg capsule 07/22 completed Not Available Not Available Not Available bisacodyl 5 mg tablet,de layed release 11/10 completed Not Available Not Available Not Available clobetaso l 0.05 % topical ointment 12/22 completed Not Available Not Available Not Available methylpre dnisolone 4 mg tablets in a dose pack TAKE 6 TABLETS ON DAY 1 DIRECTED ON PACKAGE AND DECREASE BY 1 TAB EACH DAY FOR A TOTAL OF 6 DAYS 11/16 completed Not Available Not Available Not Available Naprosyn 500 mg tablet Take 1 tablet twice a day by oral route for 15 days. 2014 active Not Available Not Available Not Avai lable ondansetr on 4 mg disintegr ating tablet DISSOLVE 1 TABLET BY MOUTH 3 TIMES A DAY 11/16 completed Not Available Not Available Not Available piroxicam 20 mg capsule 07/08 completed Not Available Not Available Not Available sertralin e 50 mg tablet TAKE 1.5 (1 AND A HALF) TABLETS BY MOUTH ONCE DAILY 05/16 completed Not Available Not Available Not Available doxycycli ne hyclate 100 mg tablet 07/22 completed Not Available Not Available Not Available amoxicill in 875 mg-potass ium clavulana te 125 mg tablet TAKE 1 TABLET BY MOUTH TWICE A DAY 11/04 completed Not Available Not Available Not Available oxycodone 5 mg tablet TAKE 1 TABLET BY MOUTH EVERY 6 HOURS NEEDED FOR PAIN 05/22 completed Not Available Not Available Not Available multivita min DAILY active RECORDED 04/29/20 13 12:59PM BY JEWELL ABARCA MA, OFFICE VISIT; Not Available Not Available Not Available Glucos Chond Cplx Advanced 1 po qd 07/08 completed Not Available Not Available Not Available cholecalc iferol (vitamin D3) 50 mcg (2,000 unit) tablet 1 po qd active Not Available Not Available Not Available GaviLyte- G 236 gram-22.7 4 gram-6.74 gram-5.86 gram oral solution 11/10 completed Not Available Not Available Not Available magnesium 400 mg (as magnesium oxide) capsule Take 1 capsule every day by oral route. 07/22 completed per allergis t consult note Not Available Not Available Not Available Multi Vitamin 1 po qd 11/16 completed Not Available Not Available Not Available Nurte ODT 75 mg disintegr ating tablet PLACE 1 TABLET UNDER TONGUE EVERY OTHER DAY NEEDED FOR MIGRAINE HEADACHE FOR 30 DAYS active Not Available Not Available No t Available Vitals Date Recorded Body height Body temperature Oxygen saturation Oxygen saturation in Arterial blood by Pulse oximetry Heart rate Systolic blood pressure Diastolic blood pressure Provider Name and Address Organization Details Last Updated DateTime 2 154.94 cm 97.88 [degF] 100 % 100 % 85 /min 120 mm[Hg] 76 mm[Hg] Hali Lemos MA [facility] 2 15:18:01 Date Recorded Body height Oxygen saturation Oxygen saturation in Arterial blood by Pulse oximetry Heart rate Body temperature Systolic blood pressure Diastolic blood pressure Provider Name and Address Organization Details Last Updated DateTime 3 154.94 cm 98 % 98 % 75 /min 97.3 [degF] 120 mm[Hg] 79 mm[Hg] Hali Lemos MA [facility] 3 09:19:30 Date Recorded Body height Heart rate Oxygen saturation Oxygen saturation in Arterial blood by Pulse oximetry Body temperature Systolic blood pressure Diastolic blood pressure Provider Name and Address Organization Details Last Updated DateTime 3 154.94 cm 92 /min 97 % 97 % 98.3 [degF] 105 mm[Hg] 67 mm[Hg] Rod Frias MA [facility] 3 08:50:35 Date Recorded Body height Heart rate Oxygen saturation Oxygen saturation in Arterial blood by Pulse oximetry Body temperature Systolic blood pressure Diastolic blood pressure Provider Name and Address Organization Details Last Updated DateTime 4 154.94 cm 93 /min 97 % 97 % 98.4 [degF] 105 mm[Hg] 69 mm[Hg] Nitza boland MA [facility] 4 10:13:53 Date Recorded Body height Oxygen saturation Oxygen saturation in Arterial blood by Pulse oximetry Heart rate Body temperature Systolic blood pressure Diastolic blood pressure Provider Name and Address Organization Details Last Updated DateTime 5 154.94 cm 100 % 100 % 69 /min 97.3 [degF] 126 mm[Hg] 76 mm[Hg] Hali Lemos MA [facility] 15:23:50 Social History Question Answer Notes LastModified by Organizat ion Details LastModified Time Tobacco Smoking Status Never Smoker VIC Lopez MA [facility] 10/12/2014 08:18:32 What Is Your Level Of Alcohol Consumption? Occasional Information not available 11/04/2020 Is Blood Transfusion Acceptable In An Emergency? Yes Information not available 09/28/2015 What Is Your Level Of Caffeine Consumption? Occasional Tea Information not available 09/28/2015 How Much Tobacco Do You Chew? None Information not available 09/28/2015 Are You Currently Employed? Yes Information not available 09/28/2015 What Type Of Diet Are You Following? REGULAR [email or web address] Information not available 10/12/2014 Do You Or Have You Ever Used E-cigarettes Or Vape? 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 With Others /son And His Girlfriend Information not available 11/10/2021 Do You Take Precautions To Prevent Distracted Driving? Yes Information not available 09/28/2015 How Often Do You Need To Have Someone Help You When You Read Instructions, Pamphlets, Or Other Written Material From Your Doctor Or Pharmacy? Never Information not available 09/28/2015 Have You Served In The ? No [email or web address] Information not available 12/22/2016 Have You Or Anyone In Your Household Had Any Of The Following Symptoms In The Last 14 Days: Sore Throat, Cough, Chills, Body Aches For Unknown Reasons, Shortness Of Breath For Unknown Reasons, Loss Of Smell, Loss Of Taste, Fever At Or Greater Than 100 Degrees Fahrenheit? No Information not available 11/04/2020 Are You Or Anyone In Your Household A Health Care Provider Or Emergency Responder? Yes RN [email or web address] Information not available 11/04/2020 To The Best Of Your Knowledge Have You Been In Close Proximity To Any Individual Who Tested Positive For COVID-19? No Information not available 11/04/2020 Have You Recently Traveled To A COVID-19 High Risk Area Or Gathering In The Last 10 Days? No [email or web address] Information not available 11/04/2020 What Was The Date Of Your Most Recent Tobacco Screening? 05/16/2024 [email or web address] Information not available 05/16/2024 How Many Children Do You Have? 2 Information not available 09/28/2015 Do You Use Protection During Sex? No Information not available 09/28/2015 Do You Use Your Seat Belt Or Car Seat Routinely? Yes [email or web address] Information not available 11/10/2021 Seat Belts Used Routinely Yes [email or web address] Information not available 11/10/2021 Are You Sexually Active? Yes Information not available 09/28/2015 Smoke Alarm In Home Yes [email or web address] Information not available 11/10/2021 Do You Have Smoke And Carbon Monoxide Detectors In Your Home? Yes [email or web address] Information not available 11/10/2021 Are You Passively Exposed To Smoke? No Information not available 09/28/2015 Do You Or Have You Ever Used Smokeless Tobacco? Never Used Smokeless Tobacco [email or web address] Information not available 11/04/2020 How Much Tobacco Do You Smoke? No [email or web address] Information not available 11/04/2020 Do You Use Sunscreen Routinely? Yes [email or web address] Information not available 10/12/2014 Sex: Unknown Functional Status Question Answer Note LastModified by Organizat ion Details LastModified Time Are you able to walk? YESWOREST [email or web address] Information not available 11/10/2021 Are you able to care for yourself? Yes [email or web address] Information not available 10/12/2014 What is your exercise level? Moderate low impact [email or web address] Information not available 11/16/2022 Mental Status None recorded. Family History Relationship Description Onset Age of this Age Resolved Age Notes LastModified by Organization Details LastModified Time Father Hypertensive disorder high choles terol [email or web address] enz Not available 12/20/2015 09:37:10 Maternal Aunt Carcinoma in situ of lung [email or web address] Not available 15:02:07 Mother Kidney disease high choles terol [email or web address] enz Not available 12/20/2015 09:37:10 Notes:No colon or breast can cer Medical History Condition Response Breast Problem Y Constipation Y Headaches/Migraines Y Headaches Y Depression Y Chicken Pox Y Allergies Y Gynecological History Statement/Question Response Date of Last Pap Smear 11/12/2018 Date of Last Colonoscopy 10/22/2020 Most Recent Mammogram 05/08/2022 Obstetrics History GPAL:G 0 P 0 0 0 0 Immunizations Vaccine Type Date Status Note Provider Nam e and Address Organization Details Recorded Time Influenza, split virus, quadrivalent, [facility] 13:53:27 Influenza, split virus, quadrivalent, preservative 7 [facility] 08/13[facility]2017 16:51:53 Influenza, split virus, quadrivalent, preservative 0 completed VIC Lopez [facility] 11/04/2020 08:49:47 COVID-19, mRNA, LNP-S, PF, 100 mcg/0.5mL dose or 50 mcg/0.25mL dose 1 completed VIC Lopez [facility] 11/04/2020 08:50:53 COVID-19, mRNA, LNP-S, PF, 30 mcg/0.3 mL dose 1 completed VIC Lopez [facility] 11/10/2021 15:19:10 Influenza, split virus, trivalent, preservative 4 completed VIC Lopez [facility] 11/16/2022 09:15:17 COVID-19, mRNA, LNP-S, PF, 30 mcg/0.3 mL dose 0 completed VIC Lopez [facility] 11/16/2022 09:15:17 Influenza, split virus, trivalent, preservative 3 completed VIC Lopez, [facility] 11/16/2022 09:15:17 Influenza, split virus, trivalent, preservative 4 completed VIC Lopez, [facility] 11/16/2022 09:15:17 Influenza, split virus, quadrivalent, preservative 5 completed VIC Lopez, [facility] 11/16/2022 09:15:17 COVID-19, mRNA, LNP-S, PF, 30 mcg/0.3 mL dose 1 completed VIC Lopez, [facility] 11/16/2022 09:15:17 Influenza, split virus, quadrivalent, PF 1 completed VIC Haley [facility] 05/22/2023 08:22:42 Influenza, split virus, quadrivalent, PF 2 completed VIC Haley, [facility] 05/22/2023 08:22:42 Tdap 1 completed Not Available [facility] 05/05/2014 13:42:12 Influenza, split virus, trivalent, preservative 2 completed Not Available [facility] 05/05/2014 13:42:12 Influenza, split virus, quadrivalent, PF 9 completed Not Available [facility] 11/08/2019 02:22:10 Tdap 1 completed VIC Lopez [facility] 11/04/2020 09:06:46 Past Encounters Encounter ID Performer Location Encounter Start Date Encounter Closed Date Diagnosis/Indication Diagnosis SNOMED-CT Code Diagnosis ICD10 Code Diagnosis Note [id number] [facility]Comm erce [id number] [facility] [place] [address] 03/16/2011 00:00:00 [id number] autoEComm erce [address] [facility] [facility] [place] [address] 09/30/2012 00:00:00 [id number] autoEComm erce [address] [facility] [address] [place] [address] 04/29/2013 00:00:00 [id number] autoEComm erce [id number] [facility] [address] [place] [address] 10/06/2013 00:00:00 [id number] autoEComm erce [address] [facility] [address] [place] [address] 04/16/2014 00:00:00 [id number] Ana jackson MD Main Office [address] [facility] [address] [place] [address] 10/12/2014 08:55:19 10/12/2014 09:33:11 Adult health examination [id number] pt is doing well, shots utd, will work on diet. [id number] Shorty Hagan MD Main Office [address] [address] [place] [address] 06/21/2015 13:21:04 06/21/2015 14:11:21 Low back pain [id number] Dora Walls PA-C Main Office [address] [address] [place] [address] 09/28/2015 11:35:43 09/28/2015 12:01:33 Inflammation of sacroiliac joint 06880796 M46.1 L. SI joint inflammati on. Start Naprosyn 500 mg BID with food. Moist heat 10 min TID. Cyclobenza rebecca at 10 mg TID for 5 days. Possible side effects reviewed. [id number] Ana jackson MD Main Office [address] [address] [place] [address] 12/20/2015 08:57:42 12/20/2015 09:50:05 Adult health examination 573331978 Z00.00 pt is doing well, shots utd, changed tnad increased activity and is losing weight Fatigue 93767617 R53.83 mom with renal abnormalit ies, check pts baseline Hypercholesterolemia 136 95932 E78.0 bother parents with high cholestero l, check fasting, good 5 years ago [id number] Willi Walls PA-C Main Office [address] [address] [place] [address] 06/06/2016 13:15:00 06/06/2016 14:04:57 Pain of wrist region 21590466 M25.532 [id number] Ana jackson MD Main Office [address] [address] [place] [address] 12/22/2016 13:15:52 12/22/2016 14:28:06 Adult health examination 620348166 Z00.00 pt is doing well, shots utd, changed diet and increased activity and is losing weight Fatigue 17138284 R53.83 check labs Hypercholesterolemia 136 63083 E78.2 check fasting, has not had it done recently Body mass index 30+ - obesity 048450860 Z68.39 BMI is 33 pt is working on diet and exercise Allergic urticaria 89007 009 L50.0 very rarely, no systemic symptoms, can get allergy tested if it continues [id number] Ana jackson MD Main Office [address] [address] [place] [address] 06/11/2017 13:47:36 06/11/2017 14:43:17 Pain of shoulder region 60404181 M25.511 sound slike impingemen t, pt to see ortho she will make appt Anxiety 57138992 F41.9 continue sertraline [id number] Ana jackson MD Main Office [address] [address] [place] [address] 08/13/2017 16:43:41 08/13/2017 17:17:45 Anxiety 21739242 F41.9 increase sertraline to 75mg a day, sleeping better, nice result [id number] Ana jackson MD Main Office [address] [address] [place] [address] 12/24/2017 09:41:46 12/24/2017 10:34:27 Adult health examination 279148763 Z00.00 pt is utd on pap and mammogram, we will request records, is exercising and working on weight loss, will add more weight training Anxiety 06492615 F41.9 increase sertraline to 75mg a day, sleeping better, nice result Hypercholesterolemia 136 38870 E78.2 check fasting, has not had it done recently Fatigue 23254331 R53.83 check labs Obesity 055453422 E66.9 Body mass index 30+ - obesity 975666895 Z68.32 BMI is 32 pt is working on diet and exercise [id number] Ana jackson MD Main Office [address] [facility] [address] [place] [address] 07/08/2018 10:28:55 07/08/2018 11:22:37 Anxiety 78160854 F41.9 well controlled on sertraline 75mg a day continue Pain of oulder region 72713157 M25.511 sounds like impingemen t, pt to see ortho she will make appt [id number] Ana jackson MD Main Office [address] [address] [place] [address] 07/22/2019 14:22:14 07/22/2019 15:25:27 Adult health examination 701218661 Z00.00 pt is utd on pap and mammogram, pt to work on low animal fat diet and up exercise Needs infl uenza immunization 570250011 Z23 Obesity 007551546 E66.9 Hypercholesterolemia 136 29817 E78.2 fasting LDL 158 work on low animal fat diet/decre ase cheese [id number] Ana jackson MD Main Office [address] [address] [place] [address] 11/04/2020 08:32:44 11/04/2020 09:44:17 Adult health examination 845880607 Z00.00 pt is utd on pap, will get mammogram pt to work on low animal fat diet and up exercise Hypercholesterolemia 136 25139 E78.2 fasting LDL 158 work on low animal fat diet/decre ase cheese Anxiety 38617239 F41.9 restart ssertralin e 75mg a day helped in past Administra tion of viral vaccine 38942832 Z23 Screening for malignant neoplasm of breast 694308066 Z12.39 pt to arrange [id number] Ana jackson MD [facility] [address] [facility] [address] [facility] [place] [address] 05/04/2021 08:27:30 05/04/2021 09:52:07 Anxiety 53533053 F41.9 sertraline helping anxiety, refill and keep at same dose [id number] Ana jackson MD Main Office [address] [address] [place] [address] 11/10/2021 14:59:51 11/10/2021 15:43:03 Adult health examination 113163017 Z00.00 pt is utd on pap and mammogram pt to work on low animal fat diet and up exercise Anxiety 29298071 F41.9 sertraline helping anxiety, refill and keep at same dose Hypercholesterolemia 136 07058 E78.2 fasting LDL 158 in past work on low animal fat diet/decre ase cheese recheck fasting Body mass index 30+ - obesity 062433971 Z68.32 does not get weighed here, pt to work on healthy eating and exercise [id number] Ana jackson MD Main Office [address] [address] [place] [address] 11/16/2022 09:09:22 11/16/2022 09:51:34 Adult health examination 262251714 Z00.00 pt is utd on pap and mammogram pt to work on low animal fat diet and up exercise 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 Headache 93114542 R51.9 mild hydrate and tylenol [id number] DAIN BAIRD MD Main Office [address] [address] [place] [address] 05/22/2023 08:20:19 05/22/2023 09:04:14 Anxiety 35130977 F41.9 - in remission- c/w sertraline 75mg QD- counsellin g provided Inflammati on of sacroiliac joint 24326288 M46.1 - pt will get injections in the SI joint (bilateral ), last was 04/18/31- pt following with pain management Cough 52906570 R05.9 - mild- physical exam was reassuring - most likely due to a viral infection- c/w supportive treatment at this time- Tylenol OTC, not to exceed package insert for pain or fever q4-6h advised prn. Counselled on not exceeding more than 3g/day. - Throat Lozenges otc prn for sore throat - saltwater gargle - adequate hydration enforced - saline sprays - humidifier use enforced. - Also advised can use a teaspoon honey for cough - RTC if no improvemen t Viral uppe r respiratory tract infection 787560083 J06.9 - please see above [id number] DAIN BAIRD MD Main Office [address] [facility] [address] [facility] [place] [address] 05/16/2024 10:04:58 05/16/2024 10:30:55 Adult health examination 698045252 Z00.00 Health Maintenanc e FemaleA) Patient was counseled on healthy diet, exercise and nutrition. B) ScreeningL ast Mammogram: start at age 50 stop at 74Date: 05/14/2023R esult: BIRADS-2Ne xt: 04/2024 (had it done at [facility]) Last Pap smear: start at age 21 to age 65Date: 11/12/2018R esults: HPV negative, no atypical cellsNext: DUE (pt mentioned she had one recently, will request) Last Colonoscop y: start at age 45-75Date: Result: Next: DUE (had it done at [facility]) Last DEXA scan:Date: due at 67Result: ??? C) Vaccines:I nfluenza: with work 07/2023TdA P: 11/04/2020Z digna: orderedPCV 13: due at 65ZPXW15: due at 85JQK94:PC V15:COVID: 10/08/2020 , 10/29/2020, 07/22/2021 D) Routine blood work orderedE) Updated patient's history RTC in one year for annual exam or sooner if any acute complaints Anxiety 63457764 F41.9 - in remission- ERIC-7 score of 0- pt has stopped sertraline - counsellin g provided Fatigue 29004880 R53.83 Z00.00 Hyperlipidemia 24611357 E78.5 Z00.00 FASTING HIV screening 590693742 Z11.4 Hepatitis C screening 41 4324557 Z11.59 Varicella vaccination 68 429218 Z23 [id number] DAIN BAIRD MD Main Office [address] [facility] [place] [address] 01/15/2025 15:14:47 01/15/2025 15:38:57 Pain in axilla 357792177 M79.621 - mild tenderness noted on exam in the right axilla- ordered CBC to check on white count- ordered EBV and CMV to r/out other possible causes of pain in the lymph nodes- ordered an ultrasound of the right axilla to check for any lymphadeno rachel- ordered mammogram of the right breast as well as pain radiates down- can place warm compresses - can use tylenol and motrin as needed for the pain Health Concerns Section Related Observation LastModified by Organization Detai ls LastModified Time None Recorded Concern Status LastModified by Organization Details LastModified Time None Recorded Advance Directives Directive None Recorded Payers Encounter Date Sequence Insurance Name Policy Number Policy Curry Covered Member ID Curry Member ID Guarantor Name 11/10/2021 1 [employer] [place] [id number] Maria C A Towse [id number] Maria C Towse 11/16/2022 1 [employer] [place] [id number] Maria C A Towse [id number] Maria C Towse 05/22/2023 1 [employer] [place] [id number] Maria C A Towse [id number] Maria C Towse 05/16/2024 1 [employer] [place] [id number] Maria C A Towse [id number] Maria C Towse 01/15/2025 1 [employer] [place] [id number] Maria C A Towse [id number] 348 Maria C Towse Notes Date Note Type Note Provider Name and Address Organization Details Recorded Time 11/10/19 22 text/htm l Pt is here for a PE. SHe is doing well. 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 Is staying active with walking and yoga. Does not like to weigh self at doctors. sometime does at home. Anxiety well treated on sertraline. Ana fallon, [facility] 11/10/2021 15:51:59 11/16/19 23 text/htm l PT is here for a pe. 5 days of a low grade headache, very mild, functions fine with them, no neck pain. no fevers. Screening is utd. Ana fallon, [facility] 11/16/2022 16:40:44 05/22/20 23 text/htm l Anxiety/DepressionReported bypatient.Quality:symptoms improved Severity:denies suicidal ideations; able to maintain relationships; does not interfere with activities of daily living Duration:stablizing Context:no major life stressors Modifying Factors:social support; medications as directed Associated Symptoms:denies homicidal ideations; no significant weight gain; no delusions; no shortness of breath; mood good; no anxiety; no crying spells; no panic; no isolation; sleeping well; appetite good; energy good; no apathy; maintaining functionalityCoughReported bypatient.Severity:mild Duration:intermittent Context:non-smoker Associated Symptoms:no fever; no chills; no chest pain; no heartburn; no nausea; no vomiting; no edema; no agitation; no wheezing; no post nasal dripNotes:Pt denies any sick contacts. COVID negative. Maria C Barkley is a 52 year old F who presented to the clinic for follow-up on her anxiety. Pt has no complaints at this time. Pt today does have a cough. DAIN BAIRD MD [address], [address], [facility] [place]/22/[place]23 09:12:07 05/16/20 24 text/htm vicente Barkley is a 53 year old F who presented to the clinic for her annual exam. Pt denies any emergency room visits or hospitalizations during this time. Complaints: none Is not using ASA.OTC/Herbal supplements use: vitamin D3, MMV, magnesium (sleep) Gynecologic HistoryPatient's last menstrual period was three years agoNo spottingSexually active: yes with husbandContraception: menopause+ abnormal paps, it was several years ago, underwent pap every 6 months and was cleared (and underwent colpo)Denies cysts, stds, fibroids Obstetric HistoryGravida: 2Para: 2AB: 0Livin (vaginal)Complications: none Drug use: neverEtoh use: rarelytobacco use: neverspf/derm: uses Dental: has not been in one yearEye: has to seeDiet: regularActivity: yoga, walking DAIN BAIRD MD [address], [address], [facility] 05/16/2024 10:35:29 01/16/20 25 text/htm vicente Barkley is a 54 year old F who presents to the clinic for complaints of right sided pain at the axilla. The pain does radiate down to the right breast. This pain has been present for two weeks. The pain is constant, sore in nature and worse in the morning. Pt denies any lumps, strain, trauma, skin changes, discharge or fever/chills. Does mention she had the flu one month ago. Pt did have a mammogram in 2023 at [facility]. Results were normal per patient. Keisha fallon, [facility] 01/28/2025 15:50:49 OBGyn Episode No OBEpisode recorded.
== END 2025-02-20 07:59 | disposition home or self-care (01) ==
LOC: HO.MAMMO 07:58
PROVIDERS: PCP Student in an Organized Health Care Education/Training Program; Visit Provider Student in an Organized Health Care Education/Training Program
DX: R92.8 Other abnormal and inconclusive findings on diagnostic imaging of breast (principal)
CPT/HCPCS: 76642; 77062; 77066

== ENCOUNTER → 2025-02-20 08:15 | Outpatient (BNV) | payer OTHER, SELFPAY | PROVIDERS: PCP Student in an Organized Health Care Education/Training Program; Visit Provider Internal Medicine | DX: N64.4 Mastodynia (principal) | CPT/HCPCS: 76642; 77062; 77066 ==

== ENCOUNTER 2025-02-26 06:28 | Outpatient (REF) | payer OTHER, SELFPAY ==
--- NOTE | ~2025-02-26 | FL_ITS ---
EXAMINATION: FL GUIDANCE ONLY HISTORY: M53.3 - Sacrococcygeal disorders, not elsewhere classified COMPARISON: None available. TECHNIQUE: Fluoroscopy time: 0.1 minutes. Cumulative Dose: 6.27 mGy. DAP: 0.0551 mGym2 Images: 3. FINDINGS: Fluoroscopic spot films demonstrate a needle in the region of the left sacroiliac joint. FL/FL guidance in treatment room IMPRESSION: Fluoroscopy during procedure. Please see procedure report for additional information. Electronically signed by: Js Aranda MD 02/26/2025 02:30 PM EDT
--- OUTSIDE RECORDS SUMMARY | 2025-02-26 06:32 | XMS_ITS | Data Portability ---
Author Organization [facility], Main Office Address [address] [facility][1] [address] [place] [id number] Care Team Providers Care Mold Holder Name Role Phone ALLI MARS Online Merchandising Specialist DONITA PAYNE Sugar Coating Hand ALLAN MAYA Digital Account Coordinator DAIN BAIRD Primary Care Provider Assessment No assessment recorded. Plan of Treatment Reminders Order Date Submit Date Provider Last Modified By Organization Details Last Modified Time Details Appointments PE EST 2024 08:15A M DAIN BAIRD MD Not available Not available Not available Lab CBC w/ auto diff 2024 025 [facility], [address], [address], 01/28/2025 15:50:46 epstei n-mejias virus (ebv) IgG + IgM panel, serum 2024 025 [facility], [address], [address], 01/28/2025 15:50:46 cytome galovi marin (cmv) igg Ab, serum 2024 025 [employer] [facility], [address], [address], 01/28/2025 15:50:46 lipid panel, serum 2023 024 [facility], [address] [place] [address] [place], [address], 05/28/2024 11:07:31 BMP, serum or plasma 2023 [facility] [address] [place] [address] [place], [address], 12/12/2024 09:33:02 CBC w/ auto diff 2023 024 [facility], [address] [place] [address] [place], [address], 05/27/2024 11:06:36 TSH, serum or plasma 2023 024 [facility], [address] [place] [address] [place], [address], 12/12/2024 09:33:02 hepati tis C virus Ab, serum 2023 024 [facility], [address] [place] [address] [place], [address], 05/16/2024 10:29:22 HIV 1+2 AB + HIV 1 p24 Ag, qualit ative immuno assay, serum 2023 024 [facility], [address] [place] [address] [place], [address], 05/16/2024 10:29:21 lipid panel, serum 2021 022 [facility], [address] [place] [address], [address], 11/29/2021 13:24:04 Referral None record ed. Procedures [...] nt of the breast 2024 025 [email or web address], [address], [place], [address], 02/17/2025 13:49:19 Medication Orders None record ed. Patient TargetsNo targets recorded. Patient Instructions Encounter Date Encounter Id Patient Instructions Last Modified By Organization Details Last Modified Time 11/10/2021 [id number] body mass index: care instructions [email or web address] Not available 11/10/2021 15:51:30 learning about healthy weight [email or web address] Not available 11/10/2021 15:51:30 11/16/2022 [id number] headache: care instructions [email or web address] Not available 11/16/2022 16:40:22 05/16/2024 [id number] Well Visit, Ages 18 to 65: Care [...] , serum triglycerdie s 97 Not Available [facility] (Medical Records) [address] [place] [address], [address], 05/28/2024 11:06:04 05/27/20 24 05/27/2024 lipid panel , serum cholesterol 239 Not Available [facility] (Medical Records) [address] [place] [address], [address], 05/28/2024 11:06:04 05/27/20 24 05/27/2024 lipid panel , serum LDL 160 Not Available [facility] (Medical Records) [address] [place] [address], [address], 05/28/2024 11:06:04 05/27/20 24 05/27/2024 lipid panel , serum HDL 60 Not Available [facility] (Medical Records) [address] [place], [address], 05/28/2024 11:06:04 05/27/20 24 05/27/2024 CBC w/ auto diff WBC 4.3 Not Available [facility] (Medical Records) [address] [place] [address], [address], 05/27/2024 11:05:39 05/27/20 24 05/27/2024 CBC w/ auto diff RBC 4.79 Not Available [facility] (Medical Records) [address] [place] [address], [address], 05/27/2024 11:05:39 05/27/20 24 05/27/2024 CBC w/ auto diff HGB 14 Not Available [facility] (Medical Records) [address] [place] [address], [address], 05/27/2024 11:05:39 05/27/20 24 05/27/2024 CBC w/ auto diff HCT 41.2 Not Available [facility] (Medical Records) [address] [place] [address], [address], 05/27/2024 11:05:39 05/27/20 24 05/27/2024 CBC w/ auto diff plt 232 Not Available [facility] (Medical Records) [address] [place] [address], [address], 05/27/2024 11:05:39 01/16/20 25 01/16/2025 CBC WITH DIFFE RENTI AL/PL ATELE T WBC 6.5 x10e3 /uL 3.4-10 .8 normal Not Available [facility] ([facility]) [address], [place], [place], [address], 01/16/2025 12:05:57 01/16/20 25 01/16/2025 CBC WITH DIFFE RENTI AL/PL ATELE T RBC 4.05 x10e6 /uL 3.77-5 .28 normal Not Available [facility] ([facility]) [address] [place], [address], 01/16/2025 12:05:57 01/16/20 25 01/16/2025 CBC WITH DIFFE RENTI AL/PL ATELE T hemoglobin 11.3 g/dL 11.1-1 5.9 normal Not Available [facility] ([facility]) [address] [place], [address], 01/16/2025 12:05:57 01/16/20 25 01/16/2025 CBC WITH DIFFE RENTI AL/PL ATELE T hematocrit 34.1 % 34.0-4 6.6 normal Not Available [facility] ([facility]) [address] [place], [address], 01/16/2025 12:05:57 01/16/20 25 01/16/2025 CBC WITH DIFFE RENTI AL/PL ATELE T MCV 84 fL 79-97 normal Not Available [facility] ([facility]) [address] [place], [address], 01/16/2025 12:05:57 01/16/20 25 01/16/2025 CBC WITH DIFFE RENTI AL/PL ATELE T MCH 27.9 pg 26.6-3 3.0 normal Not Available [facility] ([facility]) [address] [place], [address], 01/16/2025 12:05:57 01/16/20 25 01/16/2025 CBC WITH DIFFE RENTI AL/PL ATELE T MCHC 33.1 g/dL 31.5-3 5.7 normal Not Available [facility] ([facility]) [address] [place], [address], 01/16/2025 12:05:57 01/16/20 25 01/16/2025 CBC WITH DIFFE RENTI AL/PL ATELE T RDW 14.9 % 11.7-1 5.4 Not Available [facility] ([facility]) [address], [place], [place], [address], 01/16/2025 12:05:57 01/16/20 25 01/16/2025 CBC WITH DIFFE RENTI AL/PL ATELE T platelets 261 x10e3 /uL 150-45 0 normal Not Available [facility] ([facility]) [address], [place], [place], [address], 01/16/2025 12:05:57 01/16/20 25 01/16/2025 CBC WITH DIFFE RENTI AL/PL ATELE T neutrophils 52 % not estab. normal Not Available [facility] ([facility]) [address], [place], [place], [address], 01/16/2025 12:05:57 01/16/20 25 01/16/2025 CBC WITH DIFFE RENTI AL/PL ATELE T lymphs 26 % not estab. normal Not Available [facility] ([facility]) [address], [place], [place], [address], 01/16/2025 12:05:57 01/16/20 25 01/16/2025 CBC WITH DIFFE RENTI AL/PL ATELE T monocytes 6 % not estab. normal Not Available [facility] ([facility]) [address], [place], [place], [address], 01/16/2025 12:05:57 01/16/20 25 01/16/2025 CBC WITH DIFFE RENTI AL/PL ATELE T eos 15 % not estab. normal Not Available [facility] ([facility]) [address], [place], [place], [address], 01/16/2025 12:05:57 01/16/20 25 01/16/2025 CBC WITH DIFFE RENTI AL/PL ATELE T basos 1 % not estab. normal Not Available [facility] ([facility]) [address] [place], [address], 01/16/2025 12:05:57 01/16/20 25 01/16/2025 CBC WITH DIFFE RENTI AL/PL ATELE T immature cells CAFETERIA MONITOR Not Available [facility] ([facility]) [address] [place], [address], 01/16/2025 12:05:57 01/16/20 25 01/16/2025 CBC WITH DIFFE RENTI AL/PL ATELE T neutrophils (absolute) 3.4 x10e3 /uL 1.4-7. 0 normal Not Available [facility] ([facility]) [address] [place], [address], 01/16/2025 12:05:57 01/16/20 25 01/16/2025 CBC WITH DIFFE RENTI AL/PL ATELE T lymphs (absolute) 1.7 x10e3 /uL 0.7-3. 1 normal Not Available [facility] ([facility]) [address] [place], [address], 01/16/2025 12:05:57 01/16/20 25 01/16/2025 CBC WITH DIFFE RENTI AL/PL ATELE T monocytes(ab solute) 0.4 x10e3 /uL 0.1-0. 9 normal Not Available [facility] ([facility]) [address] [place], [address], 01/16/2025 12:05:57 01/16/20 25 01/16/2025 CBC WITH DIFFE RENTI AL/PL ATELE T eos (absolute) 1.0 x10e3 /uL 0.0-0. 4 above high normal Not Available [facility] ([facility]) [address] [place], [address], 01/16/2025 12:05:57 01/16/20 25 01/16/2025 CBC WITH DIFFE RENTI AL/PL ATELE T baso (absolute) 0.1 x10e3 /uL 0.0-0. 2 normal Not Available [facility] ([facility]) [address], [place], [place], [address], 01/16/2025 12:05:57 01/16/20 25 01/16/2025 CBC WITH DIFFE RENTI AL/PL ATELE T immature granulocytes 0 % not estab. Not Available [facility] ([facility]) [address], [place], [place], [address], 01/16/2025 12:05:57 01/16/20 25 01/16/2025 CBC WITH DIFFE RENTI AL/PL ATELE T immature grans (abs) 0.0 x10e3 /uL 0.0-0. 1 Not Available [facility] ([facility]) [address], [place], [place], [address], 01/16/2025 12:05:57 01/16/20 25 01/16/2025 CBC WITH DIFFE RENTI AL/PL ATELE T NRBC CAFETERIA MONITOR Not Available [facility] ([facility]) [address], [place], [place], [address], 01/16/2025 12:05:57 01/16/20 25 01/16/2025 CBC WITH DIFFE RENTI AL/PL ATELE T hematology comments: CAFETERIA MONITOR Not Available [facility] ([facility]) [address] [place], [address], 01/16/2025 12:05:57 01/16/20 25 01/16/2025 EBVCA (IGG/ M) ebv Ab vca, IgM <36.0 U/mL 0.0-35 .9 Negat umberto <36.0 Equiv ocal 36.0 - 43.9 Posit umberto >43.9 Not Available [facility] ([facility]) [address] [place], [address], 01/16/2025 12:05:58 01/16/20 25 01/16/2025 EBVCA (IGG/ M) ebv Ab vca, IgG <18.0 U/mL 0.0-17 .9 Negat umberto <18.0 Equiv ocal 18.0 - 21.9 Posit umberto >21.9 Not Available [facility] ([facility]) [address] [place], [address], 01/16/2025 12:05:58 01/16/2001/16/2025 CYTOM EGALO VIRUS (CMV) AB, IGG cytomegalovi marin (CMV) Ab, IgG <0.60 U/mL 0.00-0 .59 Negat umberto <0.60 Equiv ocal 0.60 - 0.69 Posit umberto >0.69 Not Available [facility] ([facility]) [address], [place], [place], [address], 01/16/2025 12:05:59 05/09/20 22 05/08/2022 MAMMO , scree eduardo, digit al, bilat eral No observ ation record ed. [email or web address] [address] [place], [address], 05/24/2022 10:02:38 05/10/20 22 05/08/2022 MAMMO , scree eduardo, digit al, bilat eral No observ ation record ed. [facility] [address] [place] [address] [place], [address], 05/24/2022 10:02:38 06/03/20 23 05/14/2023 MAMMO , scree eduardo, digit al, bilat eral No observ ation record ed. [address] [place], [address], 06/04/2023 13:14:51 07/16/20 24 07/14/2024 MRI, susana gibson, w/o contr ast No observ ation record ed. [email or web address] [place] [address] (Medical Records) [address] [facility], [place], [address], 07/16/2024 13:59:59 02/21/20 25 02/20/2025 MAMMO , diagn ostic , digit al, bilat eral No observ ation record ed. [email or web address] [place] [address] [place], [address], 02/20/2025 13:06:30 Result Notes None recorded. Problems Name Problem SNOMED Code Status Onset Date Resolution Date Notes Provider Name and Address Organization Details Recorded Time Patient status finding 597749546 Completed 12/20/2015 Ana fallon [facility] 6 09:36:20 Influenz a vaccine needed 99452256775 06 Completed 12/20/2015 Ana fallon [facility] 6 09:36:20 Influenz a vaccine needed 39310512993 06 Completed 201205/05/2014 RECORDED 04/29/20 13 12:59PM BY JEWELL ABARCA MA, EFRAÍN ON/ADDEN DUM Ana fallon [facility] 6 09:36:19 Adult health examinat ion Completed 12/20/2015 Ana fallon [facility] 6 09:36:20 Adult health examinat ion Completed 201205/05/2014 IMPRESSI ON: PAP AND MAMMO UTD, IS ON VITAMIN D, EXERCISE S ALL GOOD AT HOME, HASD A CHOELSTE ROL DONE AT WORK THAT WAS NL, PT IWLL SEND ME LEVEL; RECORDED 04/29/20 13 12:59PM BY JEWELL ABARCA MA, ANNOTATI ON/ADDEN DUM Ana fallon [facility] 6 09:36:19 Pure hypercho lesterol emia 665907350 Completed 12/22/2016 VIC Lopez, [facility] 7 13:42:53 Pain in limb 15703955 Completed 12/20/2015 Ana fallon, [facility] 6 09:36:20 Screenin g for malignan t neoplasm of breast Completed 201205/05/2014 RECORDED 04/29/20 13 12:59PM BY JEWELL ABARCA MA, CLAUDYATI ON/ADDEN DUM Ana fallon, [facility] 6 09:36:19 Administ ration of bacteria l and viral vaccine Completed 201005/05/2014 RECORDED 03/16/20 11 1:29PM BY HALI LEMOS, OFFICE VISIT Ana fallon [facility] 6 09:36:19 Headache 60118608 Completed 12/20/2015 Ana fallon [facility] 6 09:36:20 Influenz a vaccine needed 90386197368 06 Completed 201305/28/2014 RECORDED 04/16/20 14 3:40PM BY EFRAÍN LOPEZ ON/ADDEN DUM Ana fallon [facility] 6 09:36:19 Adult health examinat ion Completed 201305/28/2014 IMPRESSI ON: PAP FOLLOWED BY CLINICAL RESEARCH COORDINATOR, ABN AND WILL GET REPEAT 02/02, MAMMO UTD, IS ACTIVE [facility].; RECORDED 04/16/20 14 3:40PM BY EFRAÍN LOPEZ ON/ADDEN DUM Ana fallon [facility] 6 09:36:19 Screenin g for malignan t neoplasm of breast Completed 201205/28/2014 RECORDED 04/29/20 13 12:59PM BY JEWELL ABARCA MA, EFRAÍN ON/ADDEN DUM Ana fallon [facility] 6 09:36:19 Administ ration of bacteria l and viral vaccine Completed 201005/28/2014 RECORDED 03/16/20 11 1:29PM BY HALI LEMOS, OFFICE VISIT Ana fallon [facility] 6 09:36:19 Shoulder joint pain 882999821 Completed 12/20/2015 Ana fallon [facility] 6 09:36:20 Influenz a vaccine needed 94107181352 06 Completed 201305/29/2014 RECORDED 04/16/20 14 3:40PM BY EFRAÍN LOPEZ ON/ADDEN DUM Ana fallon [facility] 6 09:36:19 Adult health examinat ion Completed 201305/29/2014 IMPRESSI ON: PAP FOLLOWED BY CLINICAL RESEARCH COORDINATOR, ABN AND WILL GET REPEAT 02/02, MAMMO UTD, IS ACTIVE [facility].; RECORDED 04/16/20 14 3:40PM BY EFRAÍN LOPEZ ON/ADDEN DUM Ana fallon [facility] 6 09:36:19 Screenin g for malignan t neoplasm of breast Completed 201205/29/2014 RECORDED 04/29/20 13 12:59PM BY JEWELL ABARCA MA, EFRAÍN ON/ADDEN DUM Ana fallon [facility] 6 09:36:20 Administ ration of bacteria l and viral vaccine Completed 201005/29/2014 RECORDED 03/16/20 11 1:29PM BY HALI LEMOS, OFFICE VISIT Ana fallon [facility] 6 09:36:19 Upper respirat ory infectio n 99763795 Completed 12/20/2015 Ana fallon [facility] 6 09:36:20 Low back pain 116063429 Completed 05/16/2024 DANI BAIRD MD [address], [place], [address], [facility] 4 10:35:09 Inflamma tion of sacroili ac joint 03951391 Active under good control DAIN BAIRD MD [address], [place], [address], [facility] 4 10:35:07 Hypercho lesterol emia 81782887 Active Ana ortega [facility] 6 09:50:49 Pain of wrist region 83124295 [facility] 13:43:04 Anxiety 92171838 Active 2017 in remissio n DAIN BAIRD MD [address], [place], [address], [facility] 4 10:34:56 Pain in axilla 113368648 Active 2024 DAIN BAIRD MD [address], [place], [address], [facility] 5 15:34:47 Problem Notes None recorded. Procedures Surgical History Date Name Laterality Status Provider Name and Address Organization Details Recorded Time 3 Endoscopic us exam esoph completed Linnette Schwarz [facility] 01/09/2023 13:24:47 2 Most Recent Mammogram completed Natalee Noble [facility] 05/24/2022 10:02:25 2 Mammogram screening completed Natalee Noble [facility] 05/24/2022 10:00:38 1 Colonoscopy completed Linnette Schwarz [facility] 05/19/2024 10:13:17 1 Date of Last Colonoscopy completed Hali Lemos MA [facility] 11/10/2021 15:20:52 9 Date of Last Pap Smear completed Monica Montero RN [facility] 09/08/2019 09:21:08 Tubal Ligation completed Hali Lemos MA [facility] 11/04/2020 08:34:07 Imaging Results Imaging Date Name Status LastModified by Organiz ation Details LastModified Time 05/08/2022 MAMMO, screening, digital, bilateral completed [email or web address] [address] [place], [address], 05/24/2022 10:02:38 05/08/2022 MAMMO, screening, digital, bilateral completed [facility] [address] [place] [address] [place], [address], 05/24/2022 10:02:38 05/14/2023 MAMMO, screening, digital, bilateral completed [address] [place], [address], 06/04/2023 13:14:51 07/14/2024 MRI, shoulder, w/o contrast [facility] (Medical Records) [address] [facility], [place], [address], 07/16/2024 13:59:59 02/20/2025 MAMMO, diagnostic, digital, bilateral completed [address] [place], [address], 02/20/2025 13:06:30 Procedure Notes None recorded. Medical Equipment None [...] completed Not Available Not Available Not Available Nurtec ODT 75 mg disintegr ating tablet PL[address] [...] 120 mm[Hg] 76 mm[Hg] Hali Lemos MA [facility] 2 15:18:01 Date Recorded Body height Oxygen saturation Oxygen saturation in Arterial blood by Pulse oximetry Heart rate Body temperature Systolic blood pressure Diastolic blood pressure Provider Name and Address Organization Details Last Updated DateTime 3 154.94 cm 98 % 98 % 75 /min 97.3 [degF] 120 mm[Hg] 79 mm[Hg] Hali Lemos MA [facility] 3 09:19:30 Date Recorded Body height Heart rate Oxygen saturation Oxygen saturation in Arterial blood by Pulse oximetry Body temperature Systolic blood pressure Diastolic blood pressure Provider Name and Address Organization Details Last Updated DateTime 3 154.94 cm 92 /min 97 % 97 % 98.3 [degF] 105 mm[Hg] 67 mm[Hg] Rod Frias MA [facility] 3 08:50:35 Date Recorded Body height Heart rate Oxygen saturation Oxygen saturation in Arterial blood by Pulse oximetry Body temperature Systolic blood pressure Diastolic blood pressure Provider Name and Address Organization Details Last Updated DateTime 4 154.94 cm 93 /min 97 % 97 % 98.4 [degF] 105 mm[Hg] 69 mm[Hg] Nitza boland MA [facility] 4 10:13:53 Date Recorded Body height Oxygen saturation Oxygen saturation in Arterial blood by Pulse oximetry Heart rate Body temperature Systolic blood pressure Diastolic blood pressure Provider Name and Address Organization Details Last Updated DateTime 5 154.94 cm 100 % 100 % 69 /min 97.3 [degF] 126 mm[Hg] 76 mm[Hg] Hali Lemos MA [facility] 5 15:23:50 Social History Question Answer Notes LastModified by Organizat ion Details LastModified Time Tobacco Smoking Status [facility] 08:18:32 What Is Your Level Of Alcohol Consumption? Occasional [email or web address] Information not available 11/04/2020 Is Blood Transfusion Acceptable In An Emergency? Yes Information not available 09/28/2015 What Is Your Level Of Caffeine Consumption? Occasional Tea Information not available 09/28/2015 How Much Tobacco Do You Chew? None Information not available 09/28/2015 Are You Currently Employed? Yes Information not available 09/28/2015 What Type Of Diet Are You Following? REGULAR [email or web address] Information not available 10/12/2014 Do You Or Have You Ever Used E-cigarettes Or Vape? 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 With Others /son And His Girlfriend [email or web address] Information not available 11/10/2021 Do You Take Precautions To Prevent Distracted Driving? Yes Information not available 09/28/2015 How Often Do You Need To Have Someone Help You When You Read Instructions, Pamphlets, Or Other Written Material From Your Doctor Or Pharmacy? Never Information not available 09/28/2015 Have You Served In The ? No [email or web address] Information not available 12/22/2016 Have You Or Anyone In Your Household Had Any Of The Following Symptoms In The Last 14 Days: Sore Throat, Cough, Chills, Body Aches For Unknown Reasons, Shortness Of Breath For Unknown Reasons, Loss Of Smell, Loss Of Taste, Fever At Or Greater Than 100 Degrees Fahrenheit? No [email or web address] Information not available 11/04/2020 Are You Or Anyone In Your Household A Health Care Provider Or Emergency Responder? Yes RN Information not available 11/04/2020 To The Best Of Your Knowledge Have You Been In Close Proximity To Any Individual Who Tested Positive For COVID-19? No [email or web address] Information not available 11/04/2020 Have You Recently Traveled To A COVID-19 High Risk Area Or Gathering In The Last 10 Days? No [email or web address] Information not available 11/04/2020 What Was The Date Of Your Most Recent Tobacco Screening? 05/16/2024 [email or web address] Information not available 05/16/2024 How Many Children Do You Have? 2 Information not available 09/28/2015 Do You Use Protection During Sex? No Information not available 09/28/2015 Do You Use Your Seat Belt Or Car Seat Routinely? Yes Information not available 11/10/2021 Seat Belts Used Routinely Yes Information not available 11/10/2021 Are You Sexually Active? Yes Information not available 09/28/2015 Smoke Alarm In Home Yes [email or web address] Information not available 11/10/2021 Do You Have Smoke And Carbon Monoxide Detectors In Your Home? Yes [email or web address] Information not available 11/10/2021 Are You Passively Exposed To Smoke? No Information not available 09/28/2015 Do You Or Have You Ever Used Smokeless Tobacco? Never Used Smokeless Tobacco [email or web address] Information not available 11/04/2020 How Much Tobacco Do You Smoke? No [email or web address] Information not available 11/04/2020 Do You Use Sunscreen Routinely? Yes [email or web address] Information not available 10/12/2014 Sex: Unknown Functional Status Question Answer Note LastModified by Organizat ion Details LastModified Time Are you able to walk? YESWOREST [email or web address] Information not available 11/10/2021 Are you able to care for yourself? Yes [email or web address] Information not available 10/12/2014 What is your exercise level? Moderate low impact [email or web address] Information not available 11/16/2022 Mental Status None recorded. Family History Relationship Description Onset Age of this Age Resolved Age Notes LastModified by Organization Details LastModified Time Father Hypertensive disorder high choles terol [email or web address] Not available 12/20/2015 09:37:10 Maternal Aunt Carcinoma in situ of lung [email or web address] Not available 15:02:07 Mother Kidney disease high [...] split virus, quadrivalent, preservative 6 completed VIC Lopez [facility] 12/22/2016 13:53:27 Influenza, split virus, quadrivalent, preservative 7 completed VIC Lopez [facility] 08/13/2017 16:51:53 Influenza, split virus, quadrivalent, preservative 0 completed VIC Lopez [facility] 11/04/2020 08:49:47 COVID-19, mRNA, LNP-S, PF, 100 mcg/0.5mL dose or 50 mcg/0.25mL dose 1 [facility] 08:50:53 COVID-19, mRNA, LNP-S, PF, 30 mcg/0.3 mL dose 1 completed Hali Lemos MA null, [facility] 11/10/2021 15:19:10 Influenza, split virus, trivalent, preservative 4 completed HaliVIC Panda, [facility] 11/16/2022 09:15:17 COVID-19, mRNA, LNP-S, PF, 30 mcg/0.3 mL dose 0 completed HaliVIC Panda, [facility] 11/16/2022 09:15:17 Influenza, split virus, trivalent, preservative 3 completed HaliVIC Panda, [facility] 11/16/2022 09:15:17 Influenza, split virus, trivalent, preservative 4 completed HaliVIC Panda, [facility] 11/16/2022 09:15:17 Influenza, split virus, quadrivalent, preservative 5 completed HaliVIC Panda, [facility] 11/16/2022 09:15:17 COVID-19, mRNA, LNP-S, PF, 30 mcg/0.3 mL dose 1 completed VIC Lopez, [facility] 11/16/2022 09:15:17 Influenza, split virus, quadrivalent, PF 1 completed VIC Haley, [facility] 05/22/2023 08:22:42 Influenza, split virus, quadrivalent, PF 2 completed VIC Haley, [facility] 05/22/2023 08:22:42 Tdap 1 completed Not Available [facility] 05/05/2014 13:42:12 Influenza, split virus, trivalent, preservative 2 completed Not Available [facility] 05/05/2014 13:42:12 Influenza, split virus, quadrivalent, PF 9 completed Not Available [facility] 11/08/2019 02:22:10 Tdap 01/14/202 1 completed VIC Lopez [facility] 11/04/2020 09:06:46 Past Encounters Encounter ID Performer Location Encounter Start Date Encounter Closed Date Diagnosis/Indication Diagnosis SNOMED-CT Code Diagnosis ICD10 Code Diagnosis Note [id number] auto[facility]Comm erce [address] [facility] [place] [address] 03/16/2011 00:00:00 [id number] autoEComm erce [address] [facility],[address] [place] [address] 09/30/2012 00:00:00 [id number] auto[facility]Comm erce [address] [facility],[address] [place] [address] 04/29/2013 00:00:00 [id number] autoEComm erce [address] [facility] [place] [address] 10/06/2013 00:00:00 [id number] autoEComm erce [address] [facility] [place] [address] 04/16/2014 00:00:00 [id number] Ana jackson MD Main Office [address] [address] [place] [address] 10/12/2014 08:55:19 10/12/2014 09:33:11 Adult health examination [id number] pt is doing well, shots utd, will work on diet. [id number] Shorty Hagan MD Main Office [address] [address] [place] [address] 06/21/2015 13:21:04 06/21/2015 14:11:21 Low back pain [id number] Dora Walls PA-C Main Office [address] [address] [place] [address] 09/28/2015 11:35:43 09/28/2015 12:01:33 Inflammation of sacroiliac joint 90204526 M46.1 L. SI joint inflammati on. Start Naprosyn 500 mg BID with food. Moist heat 10 min TID. Cyclobenza rebecca at 10 mg TID for 5 days. Possible side effects reviewed. [id number] Ana jackson MD Main Office [address] [facility][1] [address] [place] [address] 12/20/2015 08:57:42 12/20/2015 09:50:05 Adult health examination 193429884 Z00.00 pt is doing well, shots utd, changed tnad increased activity and is losing weight Fatigue 66849471 R53.83 mom with renal abnormalit ies, check pts baseline Hypercholesterolemia 136 36499 E78.0 bother parents with high cholestero l, check fasting, good 5 years ago [id number] Willi Walls PA-C Main Office [address] [facility][1] [address] [place] [address] 06/06/2016 13:15:00 06/06/2016 14:04:57 Pain of wrist region 07172378 M25.532 [id number] Ana jackson MD Main Office [address] [address] 12/22/2016 13:15:52 12/22/2016 14:28:06 Adult health examination 641730295 Z00.00 pt is doing well, shots utd, changed diet and increased activity and is losing weight Fatigue 67133076 R53.83 check labs Hypercholesterolemia 136 45239 E78.2 check fasting, has not had it done recently Body mass index 30+ - obesity 848082264 Z68.39 BMI is 33 pt is working on diet and exercise Allergic urticaria 59768 009 L50.0 very rarely, no systemic symptoms, can get allergy tested if it continues [id number] Ana jackson MD Main Office [address] [place] [address] 06/11/2017 13:47:36 06/11/2017 14:43:17 Pain of shoulder region 33887732 M25.511 sound slike impingemen t, pt to see ortho she will make appt Anxiety 81786564 F41.9 continue sertraline [id number] Ana jackson MD Main Office [address] [place] [address] 08/13/2017 16:43:41 08/13/2017 17:17:45 Anxiety 82562072 F41.9 increase sertraline to 75mg a day, sleeping better, nice result [id number] Ana jackson MD Main Office [address] [facility][1] [address] [place] [address] 12/24/2017 09:41:46 12/24/2017 10:34:27 Adult health examination 469199383 Z00.00 pt is utd on pap and mammogram, we will request records, is exercising and working on weight loss, will add more weight training Anxiety 10863539 F41.9 increase sertraline to 75mg a day, sleeping better, nice result Hypercholesterolemia 136 52645 E78.2 check fasting, has not had it done recently Fatigue 66249227 R53.83 check labs Obesity 254895422 E66.9 Body mass index 30+ - obesity 427664869 Z68.32 BMI is 32 pt is working on diet and exercise [id number] Ana jackson MD Main Office [address] [address] [place] [address] 07/08/2018 10:28:55 07/08/2018 11:22:37 Anxiety 69060729 F41.9 well controlled on sertraline 75mg a day continue Pain of [facility] region 00120704 M25.511 sounds like impingemen t, pt to see ortho she will make appt [id number] Ana jackson MD Main Office [address] [address] [place] [address] 07/22/2019 14:22:14 07/22/2019 15:25:27 Adult health examination 694605295 Z00.00 pt is utd on pap and mammogram, pt to work on low animal fat diet and up exercise Needs infl uenza immunization 480812020 Z23 Obesity 893617688 E66.9 Hypercholesterolemia 136 99227 E78.2 fasting LDL 158 work on low animal fat diet/decre ase cheese [id number] Ana jackson MD Main Office [address] [address] [place] [address] 11/04/2020 08:32:44 11/04/2020 09:44:17 Adult health examination 051726310 Z00.00 pt is utd on pap, will get mammogram pt to work on low animal fat diet and up exercise Hypercholesterolemia 136 07536 E78.2 fasting LDL 158 work on low animal fat diet/decre ase cheese Anxiety 44046097 F41.9 restart ssertralin e 75mg a day helped in past Administra tion of viral vaccine 23853342 Z23 Screening for malignant neoplasm of breast 205040647 Z12.39 pt to arrange [id number] Ana jackson MD [facility] [address] [address] 05/04/2021 08:27:30 05/04/2021 09:52:07 Anxiety 22777259 F41.9 sertraline helping anxiety, refill and keep at same dose [id number] Ana jackson MD Main Office [address] [address] 11/10/2021 14:59:51 11/10/2021 15:43:03 Adult health examination 958947728 Z00.00 pt is utd on pap and mammogram pt to work on low animal fat diet and up exercise Anxiety 93527322 F41.9 sertraline helping anxiety, refill and keep at same dose Hypercholesterolemia 136 92612 E78.2 fasting LDL 158 in past work on low animal fat diet/decre ase cheese recheck fasting Body mass index 30+ - obesity 314856068 Z68.32 does not get weighed here, pt to work on healthy eating and exercise [id number] Ana jackson MD Main Office [address] [address] 11/16/2022 09:09:22 11/16/2022 09:51:34 Adult health examination 964706542 Z00.00 pt is utd on pap and mammogram pt to work on low animal fat diet and up exercise sees city dispatcher once a year Anxiety 99723383 F41.9 sertraline helping anxiety, refill and keep at same dose Hypercholesterolemia 136 46479 E78.2 fasting LDL 158 in past work on low animal fat diet/decre ase cheese recheck fasting Achilles tendinitis 1165 4001 M76.62 just had a calf surgery to help and it is improving. Headache 46315461 R51.9 mild hydrate and tylenol [id number] DAIN BAIRD MD Main Office [address] [address] [place] [address] 05/22/2023 08:20:19 05/22/2023 09:04:14 Anxiety 04368945 F41.9 - in remission- c/w sertraline 75mg QD- counsellin frida provided Inflammati on of sacroiliac joint 41556077 M46.1 - pt will get injections in the SI joint (bilateral ), last was 04/18/31- pt following with pain management Cough 39523456 R05.9 - mild- physical exam was reassuring [...] t Viral uppe r respiratory tract infection 869721950 J06.9 - please see above [id number] DAIN BAIRD MD Main Office [address] [address] [place] [address] 05/16/2024 10:04:58 05/16/2024 10:30:55 Adult health examination 526884178 Z00.00 Health Maintenanc e FemaleA) Patient was counseled on healthy diet, exercise and nutrition. B) ScreeningL ast Mammogram: start at age 50 stop at 74Date: 05/14/2023R esult: BIRADS-2Ne xt: 04/2024 (had it done at [place]) Last Pap smear: start at age 21 to age 65Date: 11/12/2018R esults: HPV negative, no atypical cellsNext: DUE (pt mentioned she had one recently, will request) Last Colonoscop y: start at age 45-75Date: Result: Next: DUE (had it done at [place]) Last DEXA scan:Date: due at 67Result: ??? C) Vaccines:I nfluenza: with work 07/2023TdA P: 11/04/2020Z digna: orderedPCV 13: due at 91IVHX07: due at 15LMN39:PC V15:COVID: 10/08/2020 , 10/29/2020, 07/22/2021 D) Routine blood work orderedE) Updated patient's history RTC in one year for annual exam or sooner if any acute complaints Anxiety 98882135 F41.9 - in remission- ERIC-7 score of 0- pt has stopped sertraline - counsellin g provided Fatigue 17126766 R53.83 Z00.00 Hyperlipidemia 19502724 E78.5 Z00.00 FASTING HIV screening 253501636 Z11.4 Hepatitis C screening 41 5511888 Z11.59 Varicella vaccination 68 373724 Z23 [id number] DAIN BAIRD MD Main Office [address] [facility][1] [address] [facility] [place] [address] 01/15/2025 15:14:47 01/15/2025 15:38:57 Pain in axilla 480931471 M79.621 - mild tenderness noted on exam [...] [employer] [id number] Maria C Alarcon [place] [id number] 348 Maria C [place]se 11/16/2022 1 [place]UE [employer] [id number] Maria C Alarcon [place] [id number] 348 Maria C Towse 05/22/2023 1 [place] [employer] [place] [id number] Maria C Barkley [id number] 348 Maria C Barkley 05/16/2024 1 BLUE BENEFIT ADMINISTRAT[employer] OF [facility] [place] ([place]PO) [id number] Maria C Barkley [id number] 348 Maria C Barkley 01/15/2025 1 [place] [employer] [place] [facility] (EPO) [id number] Maria C Barkley [id number] 348 Maria C Barkley Notes Date Note Type Note Provider Name and Address Organization Details Recorded Time 11/10/19 22 text/htm l Pt is here for a PE. SHe is doing well. utd on mammogram, colonoscopy and city dispatcher. Is staying active with walking and yoga. Does not like to weigh self at doctors. sometime does at home. Anxiety well treated on sertraline. Ana fallon, [facility] 11/10/2021 15:51:59 11/16/19 23 text/htm l PT is here for a pe. 5 days of a low grade headache, very mild, functions fine with them, no neck pain. no fevers. Screening is utd. Ana Ramos fallon, [facility] 11/16/2022 16:40:44 05/22/20 23 text/htm l [...] does have a cough. DAIN BAIRD MD [address] [facility] [address], [place], [address], [facility] 05/22/2023 09:12:07 05/16/20 24 text/htm vicente Barkley [...] seeDiet: regularActivity: yoga, walking DAIN BAIRD MD [address] [facility] [address], [place], [address], [facility] 05/16/2024 10:35:29 01/16/20 25 text/htm vicente Barkley [...] did have a mammogram in 2023 at [facility]. Results were normal per patient. Keisha fallon, [facility] 01/28/2025 15:50:49 OBGyn Episode No OBEpisode recorded.
--- OUTSIDE RECORDS SUMMARY | 2025-02-26 06:32 | XMS_ITS | Patient Health Record ---
Author Organization [employer] [facility] Address [address] [place] [address] [address] [place] [address] Care Team Providers Care Administrative Law Judge Name Role Phone ELADIO BO Primary Care Provider Unavailable Mariana Miller Unavailable [phone] Allergies Allergen (clinical drug ingredient) Drug/Non Drug [...] cannot exclude high grade squamous intraepithelial lesion (379403312) Papanicolaou smear of cervix with atypical squamous cells cannot exclude high grade squamous intraepithelial lesion (ASC-H) (795.02) Active confirmed Diag Plan Of Treatment Pending Test Test Name Order Date MAMMOGRAM, SCREENING 03/01/2015 Insurance Providers Payer Name Payer Address Payer Phone Subscriber Number Group Number Insured Name Patient Relationship to Insured Coverage Start Date Coverage End Date [employer] [address] [place] [phone] [id number] ADRIANAMURRAY NEVAREZ Self - patient is [...]
== END 2025-02-26 06:29 | disposition home or self-care (01) ==
LOC: CF 06:28
PROVIDERS: Visit Provider Internal Medicine
DX: M53.3 Sacrococcygeal disorders, not elsewhere classified (principal)
CPT/HCPCS: 27096; J2003; J2795; J3301

== ENCOUNTER 2025-02-26 12:56 | Outpatient (AMB) | payer OTHER, SELFPAY ==
[2025-02-26 13:06] VITALS: BP 124/72; PULSE 80; O2SAT 99
--- NOTE | 2025-02-26 13:06 | A.OFFVIS_ITS ---
Vital Signs 02/26/25 13:06 Height 5 ft BP 124/72 Blood Pressure Location Lt brachial Position Sitting Pulse 80 Pulse Source Pulse Oximeter Pulse Oximetry (%) 99 Oxygen Delivery Method Room Air Intake Visit Reasons: Left theraputic SIJ inj Allergies No Known Allergies Allergy (Verified 03/03/25 07:55) HPI HPI Left theraputic SIJ inj: Details: Patient presents for scheduled procedure. Denies any recent cough, cold, infection, fever or other significant changes in medical history since last office visit. 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 Immediately prior to starting the procedure, a time-out safety check was conducted. The patient's identification, procedure name, procedure site, and procedure laterality were confirmed with the patient. ? Patient was placed prone on the fluoroscopy table and the lumbosacral area was prepped using ChloraPrep and draped with sterile drapein standard fashion. The C-arm was rotated in a contralateral oblique fashion until the medial border of the iliac crest no longer foreshadowed the posterior sacroiliac joint line. The skin and subcutaneous tissue was anesthetized using 1 mL of 0.75% plain lidocaine with 1.5-inch 25-gauge needle in the middle region of the joint line.? A 3.5-inch 22-gauge spinal needle with small bend on the tip was slowly advanced towards the joint line, coaxial to the x-ray beam. Once bony content was obtained, the needle was easily slid into the intra-articular space.? Intra-articular needle position was confirmed using lateral fluoroscopy.? A total volume of 2.5mL of solution containing 40 mg triamcinilone and rest 0.5% of ropivacaine was injected intra-articularly. The stylet was reinserted and needle was removed. The patient tolerated the procedure well. Patient denied any lower extremity weakness or numbness. Patient was observed for 30 min and was discharged after fulfilling the standard discharge criteria. Coding 17206 - Sacroiliac Procedure code (CPT) selection complete Assessment & Plan Assessment & Plan (1) Sacroiliac joint dysfunction of both sides: Code(s): M53.3 - Sacrococcygeal disorders, not elsewhere classified Category: Medical Plan Patient is status post left SIJ injection. Patient tolerated procedure well and was discharged home in stable condition with discharge instructions. All questions were answered. We will follow-up via telephone or in clinic to assess response to therapy. A follow-up appointment was made during today's visit. Coding Level of Care Code Procedure Only Diagnoses Sacroiliac joint dysfunction of both sides M53.3 CPT Codes Coding - Joint 9: 87928 - Sacroiliac ([id number])
== END 2025-02-26 13:25 | disposition home or self-care (01) ==
LOC: HO.PMCPRC 12:56
PROVIDERS: PCP Student in an Organized Health Care Education/Training Program; Visit Provider Internal Medicine
DX: M53.3 Sacrococcygeal disorders, not elsewhere classified (principal)
CPT/HCPCS: 27096

== ENCOUNTER → 2025-03-02 12:03 | Outpatient (AMB) | payer OTHER, SELFPAY ==
--- NOTE | 2025-03-02 12:03 | MHC.OFFVIS ---
Intake Visit Reasons: 1 Year Follow Up Intake Note: Pt presents as a telehealth appt today for a 1 year follow up. Allergies No Known Allergies Allergy (Verified 03/02/25 12:03) HPI HPI 1 Year Follow Up: Details: 54-year-old female w/ hx of sleep apnea, GERD, called for f/u RECAP: seen previously for abdominal pain ED visits with diarrhea and pain CT abdomen pelvis was without any colitis but mild mesenteric inflammation with prominent lymph nodes. EGD 01/09/2023: Mild esophagitis ? Robles's esophagus. Gastritis. Normal duodenum. Path: active esophagitis She is also up-to-date on her colon cancer screening. Last colonoscopy in 06/2021: 1 8-10 mm polyp that was removed but could not be retrieved in ascending colon. Otherwise normal with adequate prep. Was advised a repeat colonoscopy in 5 years. INTERIM: She is doing well no issues with abdomen no nausea or vomiting bowels are normal she is taking pantoprazole 40 mg daily, taking vit D supplement A/P: 1/ GERD and path changes with active esophagitis, doing well with PPI PLAN: 1/ cont with PPI, cut down to 20 mg 2/ advised to take MV and vit D supplement 3/ colonscopy in 1 year [facility] Medical History Encounter for well woman exam with routine gynecological exam Heartburn Sleep apnea Post-menopausal COVID-19 vaccine series completed Anxiety Surgical History Hx of colonoscopy History of esophagogastroduodenoscopy (EGD) H/O tubal ligation Family History Maternal Aunt Lung cancer Social History Household Members: Spouse Alcohol intake: current Alcohol intake frequency: holidays/special occasions only Patient Tobacco Use Status: Never used Tobacco service: No Current occupational status: employed 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 Gender identity: Female Female Reproductive History Menstrual Age of Menarche: 18 Telehealth Telehealth Telehealth Platform: Telephone Location of provider rendering services: practice address Location of patient: address on file Patient Identification confirmed using: Name, : Yes Telehealth method: voice only Patient verbally consented to treatment: Yes Patient verbally consented to billing insurance company: Yes Patient informed of any privacy concerns related to visit: Yes Minutes spent on Phone/Video with Pt.: 5 Assessment & Plan Assessment & Plan (1) GERD (gastroesophageal reflux disease): Code(s): K21.9 - Gastro-esophageal reflux disease without esophagitis Category: Medical Plan: as above Coding Level of Care Code Tele Est Pt Level 3 (96649) Diagnoses GERD (gastroesophageal reflux disease) K21.9
--- OUTSIDE RECORDS SUMMARY | 2025-03-02 12:38 | XMS_ITS | Data Portability ---
Author Organization [facility], Main Office Address [address] [facility] [address] [place] [id number] Care Team Providers Care Automatic Maintainer Name Role Phone ALLI MARS Bridge Repairer [phone] DONITA PAYNE End Finder Twisting Department [phone] ALLAN MAYA Green Marketing Analyst DAIN BAIRD Primary Care Provider Assessment No assessment recorded. Plan of Treatment Reminders Order Date Submit Date Provider Last Modified By Organization Details Last Modified Time Details Appointments PE EST 2024 08:15A M DAIN BAIRD MD Not available Not available Not available Lab CBC w/ auto diff 2024 025 [email or web address], [address], [address], 01/28/2025 15:50:46 epstei n-mejias virus (ebv) IgG + IgM panel, serum 2024 025 [email or web address], [address], [address], 01/28/2025 15:50:46 cytome galovi marin (cmv) igg Ab, serum 2024 025 [employer] [facility], [address], [address], 01/28/2025 15:50:46 lipid panel, serum 2023 024 [facility], [address] [place] [address] [place], [address], 05/28/2024 11:07:31 BMP, serum or plasma 2023 024 [email or web address], [address] [place] [address] [place], [address], 12/12/2024 09:33:02 CBC w/ auto diff 2023 024 [facility], [address] [place] [address] [place], [address], 05/27/2024 11:06:36 TSH, serum or plasma 2023 024 [email or web address], [address] [place] [address] [place], [address], 12/12/2024 09:33:02 hepati tis C virus Ab, serum 2023 024 [facility], [address] [place] [address] [place], [address], 05/16/2024 10:29:22 HIV 1+2 AB + HIV 1 p24 Ag, qualit ative immuno assay, serum 2023 024 [facility], [address] [place] [address] [place], [address], 05/16/2024 10:29:21 lipid panel, serum 2021 022 [facility], [address] [place] [address], [address], 11/29/2021 13:24:04 Referral None record ed. Procedures [...] nt of the breast 2024 025 [email or web address] [facility], [address], [address], [place], [address], 02/17/2025 13:49:19 Medication Orders None record ed. Patient TargetsNo targets recorded. Patient Instructions Encounter Date Encounter Id Patient Instructions Last Modified By Organization Details Last Modified Time 11/10/2021 [id number] body mass index: care instructions [email or web address] Not available 11/10/2021 15:51:30 learning about healthy weight [email or web address] Not available 11/10/2021 15:51:30 11/16/2022 [id number] headache: care instructions [email or web address] Not available 11/16/2022 16:40:22 05/16/2024 [id number] Well Visit, Ages 18 to 65: Care [...] , serum triglycerdie s 97 Not Available [facility] (Medical Records) [address] [place] [address], [address], 05/28/2024 11:06:04 05/27/20 24 05/27/2024 lipid panel , serum cholesterol 239 Not Available [facility] (Medical Records) [address] [place] [address], [address], 05/28/2024 11:06:04 05/27/20 24 05/27/2024 lipid panel , serum LDL 160 Not Available [facility] (Medical Records) [address] [place] [address], [address], 05/28/2024 11:06:04 05/27/20 24 05/27/2024 lipid panel , serum HDL 60 Not Available [facility] (Medical Records) [address] [place], [address], 05/28/2024 11:06:04 05/27/20 24 05/27/2024 CBC w/ auto diff WBC 4.3 Not Available [facility] (Medical Records) [address] [place] [address], [address], 05/27/2024 11:05:39 05/27/20 24 05/27/2024 CBC w/ auto diff RBC 4.79 Not Available [facility] (Medical Records) [address] [place] [address], [address], 05/27/2024 11:05:39 05/27/20 24 05/27/2024 CBC w/ auto diff HGB 14 Not Available [facility] (Medical Records) [address] [place] [address], [address], 05/27/2024 11:05:39 05/27/20 24 05/27/2024 CBC w/ auto diff HCT 41.2 Not Available [facility] (Medical Records) [address] [place] [address], [address], 05/27/2024 11:05:39 05/27/20 24 05/27/2024 CBC w/ auto diff plt 232 Not Available [facility] (Medical Records) [address] [place] [address], [address], 05/27/2024 11:05:39 01/16/20 25 01/16/2025 CBC WITH DIFFE RENTI AL/PL ATELE T WBC 6.5 x10e3 /uL 3.4-10 .8 normal Not Available [facility] ([facility]) [address] [facility], [place], [address], 01/16/2025 12:05:57 01/16/20 25 01/16/2025 CBC WITH DIFFE RENTI AL/PL ATELE T RBC 4.05 x10e6 /uL 3.77-5 .28 normal Not Available [facility] ([facility]) [address] [place], [address], 01/16/2025 12:05:57 01/16/20 25 01/16/2025 CBC WITH DIFFE RENTI AL/PL ATELE T hemoglobin 11.3 g/dL 11.1-1 5.9 normal Not Available [facility] ([facility]) [address] [place], [address], 01/16/2025 12:05:57 01/16/20 25 01/16/2025 CBC WITH DIFFE RENTI AL/PL ATELE T hematocrit 34.1 % 34.0-4 6.6 normal Not Available [facility] ([facility]) [address] [place], [address], 01/16/2025 12:05:57 01/16/20 25 01/16/2025 CBC WITH DIFFE RENTI AL/PL ATELE T MCV 84 fL 79-97 normal Not Available [facility] ([facility]) [address] [place], [address], 01/16/2025 12:05:57 01/16/20 25 01/16/2025 CBC WITH DIFFE RENTI AL/PL ATELE T MCH 27.9 pg 26.6-3 3.0 normal Not Available [facility] ([facility]) [address] [place], [address], 01/16/2025 12:05:57 01/16/20 25 01/16/2025 CBC WITH DIFFE RENTI AL/PL ATELE T MCHC 33.1 g/dL 31.5-3 5.7 normal Not Available [facility] ([facility]) [address] [place], [address], 01/16/2025 12:05:57 01/16/20 25 01/16/2025 CBC WITH DIFFE RENTI AL/PL ATELE T RDW 14.9 % 11.7-1 5.4 Not Available [facility] ([facility]) [address] [facility], [place], [address], 01/16/2025 12:05:57 01/16/20 25 01/16/2025 CBC WITH DIFFE RENTI AL/PL ATELE T platelets 261 x10e3 /uL 150-45 0 normal Not Available [facility] ([facility]) [address] [facility], [place], [address], 01/16/2025 12:05:57 01/16/20 25 01/16/2025 CBC WITH DIFFE RENTI AL/PL ATELE T neutrophils 52 % not estab. normal Not Available [facility] ([facility]) [address] [facility], [place], [address], 01/16/2025 12:05:57 01/16/20 25 01/16/2025 CBC WITH DIFFE RENTI AL/PL ATELE T lymphs 26 % not estab. normal Not Available [facility] ([facility]) [address] [facility], [place], [address], 01/16/2025 12:05:57 01/16/20 25 01/16/2025 CBC WITH DIFFE RENTI AL/PL ATELE T monocytes 6 % not estab. normal Not Available [facility] ([facility]) [address] [facility], [place], [address], 01/16/2025 12:05:57 01/16/20 25 01/16/2025 CBC WITH DIFFE RENTI AL/PL ATELE T eos 15 % not estab. normal Not Available [facility] ([facility]) [address] [facility], [place], [address], 01/16/2025 12:05:57 01/16/20 25 01/16/2025 CBC WITH DIFFE RENTI AL/PL ATELE T basos 1 % not estab. normal Not Available [facility] ([facility]) [address] [place], [address], 01/16/2025 12:05:57 01/16/20 25 01/16/2025 CBC WITH DIFFE RENTI AL/PL ATELE T immature cells LEGAL FILE CLERK Not Available [facility] ([facility]) [address] [place], [address], 01/16/2025 12:05:57 01/16/20 25 01/16/2025 CBC WITH DIFFE RENTI AL/PL ATELE T neutrophils (absolute) 3.4 x10e3 /uL 1.4-7. 0 normal Not Available [facility] ([facility]) [address] [place], [address], 01/16/2025 12:05:57 01/16/20 25 01/16/2025 CBC WITH DIFFE RENTI AL/PL ATELE T lymphs (absolute) 1.7 x10e3 /uL 0.7-3. 1 normal Not Available [facility] ([facility]) [address] [place], [address], 01/16/2025 12:05:57 01/16/20 25 01/16/2025 CBC WITH DIFFE RENTI AL/PL ATELE T monocytes(ab solute) 0.4 x10e3 /uL 0.1-0. 9 normal Not Available [facility] ([facility]) [address] [place], [address], 01/16/2025 12:05:57 01/16/20 25 01/16/2025 CBC WITH DIFFE RENTI AL/PL ATELE T eos (absolute) 1.0 x10e3 /uL 0.0-0. 4 above high normal Not Available [facility] ([facility]) [address] [place], [address], 01/16/2025 12:05:57 01/16/20 25 01/16/2025 CBC WITH DIFFE RENTI AL/PL ATELE T baso (absolute) 0.1 x10e3 /uL 0.0-0. 2 normal Not Available [facility] ([facility]) [address] [facility], [place], [address], 01/16/2025 12:05:57 01/16/20 25 01/16/2025 CBC WITH DIFFE RENTI AL/PL ATELE T immature granulocytes 0 % not estab. Not Available [facility] ([facility]) [address] [facility], [place], [address], 01/16/2025 12:05:57 01/16/20 25 01/16/2025 CBC WITH DIFFE RENTI AL/PL ATELE T immature grans (abs) 0.0 x10e3 /uL 0.0-0. 1 Not Available [facility] ([facility]) [address] [facility], [place], [address], 01/16/2025 12:05:57 01/16/20 25 01/16/2025 CBC WITH DIFFE RENTI AL/PL ATELE T NRBC LEGAL FILE CLERK Not Available [facility] ([facility]) [address] [facility], [place], [address], 01/16/2025 12:05:57 01/16/20 25 01/16/2025 CBC WITH DIFFE RENTI AL/PL ATELE T hematology comments: LEGAL FILE CLERK Not Available [facility] ([facility]) [address] [place], [address], 01/16/2025 12:05:57 01/16/20 25 01/16/2025 EBVCA (IGG/ M) ebv Ab vca, IgM <36.0 U/mL 0.0-35 .9 Negat umberto <36.0 Equiv ocal 36.0 - 43.9 Posit umberto >43.9 Not Available [facility] ([facility]) [address] [place], [address], 01/16/2025 12:05:58 01/16/20 25 01/16/2025 EBVCA (IGG/ M) ebv Ab vca, IgG <18.0 U/mL 0.0-17 .9 Negat umberto <18.0 Equiv ocal 18.0 - 21.9 Posit umberto >21.9 Not Available [facility] ([facility]) [address] [place], [address], 01/16/2025 12:05:58 01/16/2001/16/2025 CYTOM EGALO VIRUS (CMV) AB, IGG cytomegalovi marin (CMV) Ab, IgG <0.60 U/mL 0.00-0 .59 Negat umberto <0.60 Equiv ocal 0.60 - 0.69 Posit umberto >0.69 Not Available [facility] ([facility]) [address] [facility], [place], [address], 01/16/2025 12:05:59 05/09/20 22 05/08/2022 MAMMO , scree eduardo, digit al, bilat eral No observ ation record ed. [email or web address] [address] [place], [address], 05/24/2022 10:02:38 05/10/20 22 05/08/2022 MAMMO , scree eduardo, digit al, bilat eral No observ ation record ed. [email or web address] [facility] [address] [place] [address] [place], [address], 05/24/2022 10:02:38 06/03/20 23 05/14/2023 MAMMO , scree eduardo, digit al, bilat eral No observ ation record ed. [address] [place], [address], 06/04/2023 13:14:51 07/16/20 24 07/14/2024 MRI, susana gibson, w/o contr ast No observ ation record ed. [email or web address] [place] [address] (Medical Records) [address] [facility], [place], [address], 07/16/2024 13:59:59 02/21/20 25 02/20/2025 MAMMO , diagn ostic , digit al, bilat eral No observ ation record ed. [email or web address] [place] [address] [place], [address], 02/20/2025 13:06:30 Result Notes None recorded. Problems Name Problem SNOMED Code Status Onset Date Resolution Date Notes Provider Name and Address Organization Details Recorded Time Patient status finding 468106298 Completed 12/20/2015 Ana fallon [facility] 6 09:36:20 Influenz a vaccine needed 76609642497 06 Completed 12/20/2015 Ana fallon [facility] 6 09:36:20 Influenz a vaccine needed 83239090319 06 Completed 201205/05/2014 RECORDED 04/29/20 13 12:59PM BY JEWELL ABARCA MA, EFRAÍN ON/ADDEN DUM Ana fallon [facility] 6 09:36:19 Adult health examinat ion Completed 12/20/2015 Ana fallon [facility] 6 09:36:20 Adult health examinat ion Completed 201205/05/2014 IMPRESSI ON: PAP AND MAMMO UTD, IS ON VITAMIN D, EXERCISE S ALL GOOD AT HOME, HASD A CHOELSTE ROL DONE AT WORK THAT WAS NL, PT IWLL SEND ME LEVEL; RECORDED 04/29/20 13 12:59PM BY JEWELL ABARCA MA, ANNOTATI ON/ADDEN DUM Ana fallon [facility] 6 09:36:19 Pure hypercho lesterol emia 257001667 Completed 12/22/2016 VIC Lopez, [facility] 7 13:42:53 Pain in limb 45409266 Completed 12/20/2015 Ana fallon, [facility] 6 09:36:20 Screenin g for malignan t neoplasm of breast Completed 201205/05/2014 RECORDED 04/29/20 13 12:59PM BY JEWELL ABARCA MA, CLAUDYATI ON/ADDEN DUM Ana fallon, [facility] 6 09:36:19 Administ ration of bacteria l and viral vaccine Completed 201005/05/2014 RECORDED 03/16/20 11 1:29PM BY HALI LEMOS, OFFICE VISIT Ana fallon [facility] 6 09:36:19 Headache 75938645 Completed 12/20/2015 Ana fallon [facility] 6 09:36:20 Influenz a vaccine needed 97374003887 06 Completed 201305/28/2014 RECORDED 04/16/20 14 3:40PM BY EFRAÍN LOPEZ ON/ADDEN DUM Ana fallon [facility] 6 09:36:19 Adult health examinat ion Completed 201305/28/2014 IMPRESSI ON: PAP FOLLOWED BY CUSTOMER OPERATIONS REPRESENTATIVE, ABN AND WILL GET REPEAT 02/02, MAMMO UTD, IS ACTIVE [facility].; RECORDED 04/16/20 14 3:40PM BY EFRAÍN LOPEZ ON/ADDEN DUM Ana fallon [facility] 6 09:36:19 Screenin g for malignan t neoplasm of breast Completed 201205/28/2014 RECORDED 04/29/20 13 12:59PM BY JEWELL ABARCA MA, EFRAÍN ON/ADDEN DUM Ana fallon [facility] 6 09:36:19 Administ ration of bacteria l and viral vaccine Completed 201005/28/2014 RECORDED 03/16/20 11 1:29PM BY HALI LEMOS, OFFICE VISIT Ana fallon [facility] 6 09:36:19 Shoulder joint pain 900377987 Completed 12/20/2015 Ana fallon [facility] 6 09:36:20 Influenz a vaccine needed 01057310023 06 Completed 201305/29/2014 RECORDED 04/16/20 14 3:40PM BY EFRAÍN LOPEZ ON/ADDEN DUM Ana fallon [facility] 6 09:36:19 Adult health examinat ion Completed 201305/29/2014 IMPRESSI ON: PAP FOLLOWED BY CUSTOMER OPERATIONS REPRESENTATIVE, ABN AND WILL GET REPEAT 02/02, MAMMO UTD, IS ACTIVE [facility].; RECORDED 04/16/20 14 3:40PM BY EFRAÍN LOPEZ ON/ADDEN DUM Ana fallon [facility] 6 09:36:19 Screenin g for malignan t neoplasm of breast Completed 201205/29/2014 RECORDED 04/29/20 13 12:59PM BY JEWELL ABARCA MA, EFRAÍN ON/ADDEN DUM Ana fallon [facility] 6 09:36:20 Administ ration of bacteria l and viral vaccine Completed 201005/29/2014 RECORDED 03/16/20 11 1:29PM BY HALI LEMOS, OFFICE VISIT Ana fallon [facility] 6 09:36:19 Upper respirat ory infectio n 36600229 Completed 12/20/2015 Ana fallon [facility] 6 09:36:20 Low back pain 852197126 Completed 05/16/2024 DAIN BAIRD MD [address], [place], [address], [facility] 4 10:35:09 Inflamma tion of sacroili ac joint 21044626 Active under good control DAIN BAIRD MD [address], [place], [address], [facility] 4 10:35:07 Hypercho lesterol emia 73754552 Active Ana ortega [facility] 6 09:50:49 Pain of wrist region 67495726 [facility] 13:43:04 Anxiety 98579029 Active 2017 in remissio n DAIN BAIRD MD [address], [place], [address], [facility] 4 10:34:56 Pain in axilla 667340478 Active 2024 DAIN BAIRD MD [address], [place], [address], [facility] 5 15:34:47 Problem Notes None recorded. Procedures Surgical History Date Name Laterality Status Provider Name and Address Organization Details Recorded Time 3 Endoscopic us exam esoph completed Linnette Schwarz [facility] 01/09/2023 13:24:47 2 Most Recent Mammogram completed Natalee Noble [facility] 05/24/2022 10:02:25 2 Mammogram screening completed Natalee Noble [facility] 05/24/2022 10:00:38 1 Colonoscopy completed Linnette Schwarz [facility] 05/19/2024 10:13:17 1 Date of Last Colonoscopy completed Hali Lemos MA [facility] 11/10/2021 15:20:52 9 Date of Last Pap Smear completed Monica Montero RN [facility] 09/08/2019 09:21:08 Tubal Ligation completed Hali Lemos MA [facility] 11/04/2020 08:34:07 Imaging Results Imaging Date Name Status LastModified by Organiz ation Details LastModified Time 05/08/2022 MAMMO, screening, digital, bilateral completed [email or web address] [place], [address], 05/24/2022 10:02:38 05/08/2022 MAMMO, screening, digital, bilateral completed [email or web address] [facility] [address] [place] [address] [place], [address], 05/24/2022 10:02:38 05/14/2023 MAMMO, screening, digital, bilateral completed [address] [place], [address], 06/04/2023 13:14:51 07/14/2024 MRI, shoulder, w/o contrast [email or web address] (Medical Records) [address] [facility], [place], [address], 07/16/2024 13:59:59 02/20/2025 MAMMO, diagnostic, digital, bilateral completed [address] [place], [address], 02/20/2025 13:06:30 Procedure Notes None recorded. Medical [...] 120 mm[Hg] 76 mm[Hg] Hali Lemos MA [facility] 2 15:18:01 Date Recorded Body height Oxygen saturation Oxygen saturation in Arterial blood by Pulse oximetry Heart rate Body temperature Systolic blood pressure Diastolic blood pressure Provider Name and Address Organization Details Last Updated DateTime 3 154.94 cm 98 % 98 % 75 /min 97.3 [degF] 120 mm[Hg] 79 mm[Hg] Hali Lemos MA [facility] 3 09:19:30 Date Recorded Body height Heart rate Oxygen saturation Oxygen saturation in Arterial blood by Pulse oximetry Body temperature Systolic blood pressure Diastolic blood pressure Provider Name and Address Organization Details Last Updated DateTime 3 154.94 cm 92 /min 97 % 97 % 98.3 [degF] 105 mm[Hg] 67 mm[Hg] Rod Frias MA [facility] 3 08:50:35 Date Recorded Body height Heart rate Oxygen saturation Oxygen saturation in Arterial blood by Pulse oximetry Body temperature Systolic blood pressure Diastolic blood pressure Provider Name and Address Organization Details Last Updated DateTime 4 154.94 cm 93 /min 97 % 97 % 98.4 [degF] 105 mm[Hg] 69 mm[Hg] Nitza boland MA [facility] 4 10:13:53 Date Recorded Body height Oxygen saturation Oxygen saturation in Arterial blood by Pulse oximetry Heart rate Body temperature Systolic blood pressure Diastolic blood pressure Provider Name and Address Organization Details Last Updated DateTime 5 154.94 cm 100 % 100 % 69 /min 97.3 [degF] 126 mm[Hg] 76 mm[Hg] Hali Lemos MA [facility] 5 15:23:50 Social History Question Answer Notes LastModified by Organizat ion Details LastModified Time Tobacco Smoking Status [facility] 08:18:32 Is Blood Transfusion Acceptable In An Emergency? Yes Information not available 09/28/2015 What Is Your Level Of Caffeine Consumption? Occasional Tea Information not available 09/28/2015 How Much Tobacco Do You Chew? None Information not available 09/28/2015 What Type Of Diet Are You Following? REGULAR [email or web address] Information not available 10/12/2014 Live Alone Or With Others? With Others /son And His Girlfriend [email or web address] Information not available 11/10/2021 Do You Take Precautions To Prevent Distracted Driving? Yes Information not available 09/28/2015 How Often Do You Need To Have Someone Help You When You Read Instructions, Pamphlets, Or Other Written Material From Your Doctor Or Pharmacy? Never Information not available 09/28/2015 Have You Served In The ? No Information not available 12/22/2016 Have You Or Anyone In Your Household Had Any Of The Following Symptoms In The Last 14 Days: Sore Throat, Cough, Chills, Body Aches For Unknown Reasons, Shortness Of Breath For Unknown Reasons, Loss Of Smell, Loss Of Taste, Fever At Or Greater Than 100 Degrees Fahrenheit? No [email or web address] Information not available 11/04/2020 Are You Or Anyone In Your Household A Health Care Provider Or Emergency Responder? Yes RN [email or web address] Information not available 11/04/2020 To The Best Of Your Knowledge Have You Been In Close Proximity To Any Individual Who Tested Positive For COVID-19? No [email or web address] Information not available 11/04/2020 Have You Recently Traveled To A COVID-19 High Risk Area Or Gathering In The Last 10 Days? No [email or web address] Information not available 11/04/2020 What Was The Date Of Your Most Recent Tobacco Screening? 05/16/2024 [email or web address] Information not available 05/16/2024 How Many Children Do You Have? 2 Information not available 09/28/2015 Do You Use Protection During Sex? No Information not available 09/28/2015 Do You Use Your Seat Belt Or Car Seat Routinely? Yes [email or web address] Information not available 11/10/2021 Seat Belts Used Routinely Yes [email or web address] Information not available 11/10/2021 Are You Sexually Active? Yes Information not available 09/28/2015 Smoke Alarm In Home Yes [email or web address] Information not available 11/10/2021 Do You Have Smoke And Carbon Monoxide Detectors In Your Home? Yes [email or web address] Information not available 11/10/2021 Are You Passively Exposed To Smoke? No Information not available 09/28/2015 How Much Tobacco Do You Smoke? No [email or web address] Information not available 11/04/2020 Do You Use Sunscreen Routinely? Yes [email or web address] Information not available 10/12/2014 Sex: Unknown Functional Status Question Answer Note LastModified by Organizat ion Details LastModified Time What is your level of alcohol consumption? Occasional [email or web address] Information not available 11/04/2020 Do you or have you ever used smokeless tobacco? Never used smokeless tobacco [email or web address] Information not available 11/04/2020 Are you currently employed? Yes Information not available 09/28/2015 Are you able to walk? YESWOREST [email or web address] Information not available 11/10/2021 Are you able to care for yourself? 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 Never used electronic cigarettes [email or web address] Information not available 11/10/2021 What is your exercise level? Moderate low impact [email or web address] Information not available 11/16/2022 Mental Status None recorded. Family History Relationship Description Onset Age of this Age Resolved Age Notes LastModified by Organization Details LastModified Time Father Hypertensive disorder high choles terol [email or web address] enz Not available 12/20/2015 09:37:10 Maternal Aunt Carcinoma in situ of lung [email or web address] Not available 15:02:07 Mother Kidney disease high [...] virus, quadrivalent, preservative 6 completed VIC Lopez [facility] 12/22/2016 13:53:27 Influenza, split virus, quadrivalent, preservative 7 completed VIC Lopez [facility] 08/13/2017 16:51:53 Influenza, split virus, quadrivalent, preservative 0 completed VIC Lopez [facility] 11/04/2020 08:49:47 COVID-19, mRNA, LNP-S, PF, 100 mcg/0.5mL dose or 50 mcg/0.25mL dose 1 [facility] 08:50:53 COVID-19, mRNA, LNP-S, PF, 30 mcg/0.3 mL dose 1 completed Hali Lemos MA null, [facility] 11/10/2021 15:19:10 Influenza, split virus, trivalent, preservative 4 completed HaliVIC Panda, [facility] 11/16/2022 09:15:17 COVID-19, mRNA, LNP-S, PF, 30 mcg/0.3 mL dose 0 completed HaliVIC Panda, [facility] 11/16/2022 09:15:17 Influenza, split virus, trivalent, preservative 3 completed HaliVIC Panda, [facility] 11/16/2022 09:15:17 Influenza, split virus, trivalent, preservative 4 completed HaliVIC Panda, [facility] 11/16/2022 09:15:17 Influenza, split virus, quadrivalent, preservative 5 completed HailVIC Panda, [facility] 11/16/2022 09:15:17 COVID-19, mRNA, LNP-S, PF, 30 mcg/0.3 mL dose 1 completed VIC Lopez, [facility] 11/16/2022 09:15:17 Influenza, split virus, quadrivalent, PF 1 completed VIC Haley, [facility] 05/22/2023 08:22:42 Influenza, split virus, quadrivalent, PF 2 completed VIC Haley, [facility] 05/22/2023 08:22:42 Tdap 1 completed Not Available [facility] [place] [facility] 05/05/2014 13:42:12 Influenza, split virus, trivalent, preservative 2 completed Not Available [facility] 05/05/2014 13:42:12 Influenza, split virus, quadrivalent, PF 9 completed Not Available [facility] [place] [facility] 11/08/2019 02:22:10 Tdap 01/14/202 1 completed VIC Lopez [facility] 11/04/2020 09:06:46 Past Encounters Encounter ID Performer Location Encounter Start Date Encounter Closed Date Diagnosis/Indication Diagnosis SNOMED-CT Code Diagnosis ICD10 Code Diagnosis Note [id number] autoEComm erce [address] [facility] [place] [address] 03/16/2011 00:00:00 [id number] autoEComm erce [address] [facility] [place] [address] 09/30/2012 00:00:00 [id number] autoEComm erce [address] [facility] [place] [address] 04/29/2013 00:00:00 [id number] autoEComm erce [address] [facility] [place] [address] 10/06/2013 00:00:00 [id number] autoEComm erce [address] [facility] [place] [address] 04/16/2014 00:00:00 [id number] Ana jackson MD Main Office [address] [address] [place] [address] 10/12/2014 08:55:19 10/12/2014 09:33:11 Adult health examination [id number] pt is doing well, shots utd, will work on diet. [id number] Shorty Hagan MD Main Office [address] [address] [place] [address] 06/21/2015 13:21:04 06/21/2015 14:11:21 Low back pain [id number] Dora Walls PA-C Main Office [address] [address] [place] [address] 09/28/2015 11:35:43 09/28/2015 12:01:33 Inflammation of sacroiliac joint 43697971 M46.1 L. SI joint inflammati on. Start Naprosyn 500 mg BID with food. Moist heat 10 min TID. Cyclobenza rebecca at 10 mg TID for 5 days. Possible side effects reviewed. [id number] Ana jackson MD Main Office [address] [facility] [address] [place] [address] 12/20/2015 08:57:42 12/20/2015 09:50:05 Adult health examination 281352034 Z00.00 pt is doing well, shots utd, changed tnad increased activity and is losing weight Fatigue 08283536 R53.83 mom with renal abnormalit ies, check pts baseline Hypercholesterolemia 136 28339 E78.0 bother parents with high cholestero l, check fasting, good 5 years ago [id number] Willi Walls PA-C Main Office [address] [facility] [address] [place] [address] 06/06/2016 13:15:00 06/06/2016 14:04:57 Pain of wrist region 53732340 M25.532 [id number] Ana jackson MD Main Office [address] [place] [address] 12/22/2016 13:15:52 12/22/2016 14:28:06 Adult health examination 369812191 Z00.00 pt is doing well, shots utd, changed diet and increased activity and is losing weight Fatigue 40964114 R53.83 check labs Hypercholesterolemia 136 07183 E78.2 check fasting, has not had it done recently Body mass index 30+ - obesity 857753339 Z68.39 BMI is 33 pt is working on diet and exercise Allergic urticaria 47585 009 L50.0 very rarely, no systemic symptoms, can get allergy tested if it continues [id number] Ana jackson MD Main Office [address] [place] [address] 06/11/2017 13:47:36 06/11/2017 14:43:17 Pain of shoulder region 47523233 M25.511 sound slike impingemen t, pt to see ortho she will make appt Anxiety 70970483 F41.9 continue sertraline [id number] Ana jackson MD Main Office [address] [place] [address] 08/13/2017 16:43:41 08/13/2017 17:17:45 Anxiety 50279731 F41.9 increase sertraline to 75mg a day, sleeping better, nice result [id number] Ana jackson MD Main Office [address] [facility] [address] [place] [address] 12/24/2017 09:41:46 12/24/2017 10:34:27 Adult health examination 259304953 Z00.00 pt is utd on pap and mammogram, we will request records, is exercising and working on weight loss, will add more weight training Anxiety 71143555 F41.9 increase sertraline to 75mg a day, sleeping better, nice result Hypercholesterolemia 136 45659 E78.2 check fasting, has not had it done recently Fatigue 40098368 R53.83 check labs Obesity 747645585 E66.9 Body mass index 30+ - obesity 461782272 Z68.32 BMI is 32 pt is working on diet and exercise [id number] Ana jackson MD Main Office [address] [address] [place] [address] 07/08/2018 10:28:55 07/08/2018 11:22:37 Anxiety 59873980 F41.9 well controlled on sertraline 75mg a day continue Pain of [facility] region 79230128 M25.511 sounds like impingemen t, pt to see ortho she will make appt [id number] Ana jackson MD Main Office [address] [address] [place] [address] 07/22/2019 14:22:14 07/22/2019 15:25:27 Adult health examination 642045306 Z00.00 pt is utd on pap and mammogram, pt to work on low animal fat diet and up exercise Needs infl uenza immunization 174058299 Z23 Obesity 787134577 E66.9 Hypercholesterolemia 136 91599 E78.2 fasting LDL 158 work on low animal fat diet/decre ase cheese [id number] Ana jackson MD Main Office [address] [address] [place] [address] 11/04/2020 08:32:44 11/04/2020 09:44:17 Adult health examination 911490176 Z00.00 pt is utd on pap, will get mammogram pt to work on low animal fat diet and up exercise Hypercholesterolemia 136 22822 E78.2 fasting LDL 158 work on low animal fat diet/decre ase cheese Anxiety 14644860 F41.9 restart ssertralin e 75mg a day helped in past Administra tion of viral vaccine 24911983 Z23 Screening for malignant neoplasm of breast 942175917 Z12.39 pt to arrange [id number] Ana jackson MD [facility] [address] [address] 05/04/2021 08:27:30 05/04/2021 09:52:07 Anxiety 05242336 F41.9 sertraline helping anxiety, refill and keep at same dose [id number] Ana jackson MD Main Office [address] [address] 11/10/2021 14:59:51 11/10/2021 15:43:03 Adult health examination 162393125 Z00.00 pt is utd on pap and mammogram pt to work on low animal fat diet and up exercise Anxiety 26761570 F41.9 sertraline helping anxiety, refill and keep at same dose Hypercholesterolemia 136 77926 E78.2 fasting LDL 158 in past work on low animal fat diet/decre ase cheese recheck fasting Body mass index 30+ - obesity 702454728 Z68.32 does not get weighed here, pt to work on healthy eating and exercise [id number] Ana jackson MD Main Office [address] [address] 11/16/2022 09:09:22 11/16/2022 09:51:34 Adult health examination 147487219 Z00.00 pt is utd on pap and mammogram pt to work on low animal fat diet and up exercise sees windows technical specialist once a year Anxiety 35884074 F41.9 sertraline helping anxiety, refill and keep at same dose Hypercholesterolemia 136 29527 E78.2 fasting LDL 158 in past work on low animal fat diet/decre ase cheese recheck fasting Achilles tendinitis 1165 4001 M76.62 just had a calf surgery to help and it is improving. Headache 76427487 R51.9 mild hydrate and tylenol [id number] DANI BAIRD MD Main Office [address] [address] [place] [address] 05/22/2023 08:20:19 05/22/2023 09:04:14 Anxiety 99177935 F41.9 - in remission- c/w sertraline 75mg QD- counsellin frida provided Inflammati on of sacroiliac joint 88492286 M46.1 - pt will get injections in the SI joint (bilateral ), last was 04/18/31- pt following with pain management Cough 53468723 R05.9 - mild- physical exam was reassuring [...] t Viral uppe r respiratory tract infection 983495670 J06.9 - please see above [id number] DAIN BAIRD MD Main Office [address] [address] [place] [address] 05/16/2024 10:04:58 05/16/2024 10:30:55 Adult health examination 820226448 Z00.00 Health Maintenanc e FemaleA) Patient was counseled on healthy diet, exercise and nutrition. B) ScreeningL ast Mammogram: start at age 50 stop at 74Date: 05/14/2023R esult: BIRADS-2Ne xt: 04/2024 (had it done at [place]) Last Pap smear: start at age 21 to age 65Date: 11/12/2018R esults: HPV negative, no atypical cellsNext: DUE (pt mentioned she had one recently, will request) Last Colonoscop y: start at age 45-75Date: Result: Next: DUE (had it done at [place]) Last DEXA scan:Date: due at 67Result: ??? C) Vaccines:I nfluenza: with work 07/2023TdA P: 11/04/2020Z digna: orderedPCV 13: due at 89UQMR03: due at 64ZKL49:PC V15:COVID: 10/08/2020 , 10/29/2020, 07/22/2021 D) Routine blood work orderedE) Updated patient's history RTC in one year for annual exam or sooner if any acute complaints Anxiety 09198817 F41.9 - in remission- ERIC-7 score of 0- pt has stopped sertraline - counsellin g provided Fatigue 76781349 R53.83 Z00.00 Hyperlipidemia 36189197 E78.5 Z00.00 FASTING HIV screening 698212511 Z11.4 Hepatitis C screening 43 5859134 Z11.59 Varicella vaccination 68 465729 Z23 [id number] DAIN BAIRD MD Main Office [address] [facility] [address] [facility] [place] [address] 01/15/2025 15:14:47 01/15/2025 15:38:57 Pain in axilla 826111230 M79.621 - mild tenderness noted on exam [...] B[employer] [id number] Maria C Alarcon [place] [id number] 348 Maria C Towse 11/16/2022 1 [place]UE [employer] [place] [id number] Maria C Alarcon [place] [id number] 348 Maria C Towse 05/22/2023 1 [place] [employer] [id number] Maria C Barkley [id number] 348 Maria C Barkley 05/16/2024 1 BLUE BENEFIT ADMINISTRATORS OF [facility] [place] (EPO) [id number] Maria C Barkley [id number] 348 Maria C Barkley 01/15/2025 1 [place] [facility] (EPO) [id number] Maria C Barkley [id number] 348 Maria C Barkley Notes Date Note Type Note Provider Name and Address Organization Details Recorded Time 11/10/19 22 text/htm l Pt is here for a PE. SHe is doing well. utd on mammogram, colonoscopy and windows technical specialist. Is staying active with walking and yoga. Does not like to weigh self at doctors. sometime does at home. Anxiety well treated on sertraline. Ana fallon, [facility] 11/10/2021 15:51:59 11/16/19 23 text/htm l PT is here for a pe. 5 days of a low grade headache, very mild, functions fine with them, no neck pain. no fevers. Screening is utd. Ana Ramos fallon, [facility] 11/16/2022 16:40:44 05/22/20 23 text/htm l [...] have a cough. DAIN BAIRD MD [address] [facility] [address], [place], [address], [facility] 05/22/2023 09:12:07 05/16/20 24 text/htm vicente [...] regularActivity: yoga, walking DAIN BAIRD MD [address] [facility] [address], [place], [address], [facility] 05/16/2024 10:35:29 01/16/20 25 text/htm vicente Barkley [...] did have a mammogram in 2023 at [facility]. Results were normal per patient. Keisha fallon, [facility] 01/28/2025 15:50:49 OBGyn Episode No OBEpisode recorded.
--- OUTSIDE RECORDS SUMMARY | 2025-03-02 12:38 | XMS_ITS | Patient Health Record ---
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 Name Role Phone ELADIO BO Primary Care Provider Unavailable Mariana Miller Unavailable [phone] Allergies Allergen (clinical drug ingredient) Drug/Non Drug [...] cannot exclude high grade squamous intraepithelial lesion (610384029) Papanicolaou smear of cervix with atypical squamous cells cannot exclude high grade squamous intraepithelial lesion (ASC-H) (795.02) Active confirmed Diag Plan Of Treatment Pending Test Test Name Order Date MAMMOGRAM, SCREENING 03/01/2015 Insurance Providers Payer Name Payer Address Payer Phone Subscriber Number Group Number Insured Name Patient Relationship to Insured Coverage Start Date Coverage End Date [place] [address] [address] [place] [phone] [id number] ADRIANAMURRAY NEVAREZ Self - patient is [...]
== END ==
LOC: HO.HGI 12:03
PROVIDERS: PCP Student in an Organized Health Care Education/Training Program; Visit Provider Internal Medicine Gastroenterology
DX: K21.9 Gastro-esophageal reflux disease without esophagitis (principal)
CPT/HCPCS: 99213

== ENCOUNTER → 2025-03-02 12:03 | Outpatient (BNVA) | payer OTHER, SELFPAY | PROVIDERS: PCP Student in an Organized Health Care Education/Training Program; Visit Provider Internal Medicine Gastroenterology ==

== ENCOUNTER 2025-03-03 07:45 | Outpatient (AMB) | payer OTHER, SELFPAY ==
--- NOTE | 2025-03-03 07:54 | A.OFFVIS_ITS ---
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 She is doing well with no readers' advisory service librarian concerns. Currently sexually active. Denies any vaginal dryness or irritation. STI testing offered; she declined. Attempting to eat a healthy diet with calcium and vitamin D and stays active with exercise. Last pap smear; 2020. Last mammogram; 2024. Colonoscopy is UTD. Denies any family history of breast, ovarian or colon cancer. 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 Sexual orientation: Straight/Heterosexual Gender identity: Female Female Reproductive History Menstrual Age of Menarche: 18 control method: permanent sterilization Permanent Sterilization: BTL Total pregnancies: 2 Full term: 2 Number of Living Children: 2 Date of last pap smear: 02/15/21 (neg pap and hpv) History of abnormal pap smear: Yes (hx abn pap and colpo) Date of Mammogram: 02/20/25 (Birad 2) Review of Systems Const All systems reviewed & are unremarkable except as noted in HPI and below Reports as per HPI Eyes Reports no additional complaints ENT Reports no additional complaints Card Reports no additional complaints Resp Reports no additional complaints GI Reports as per HPI and Reports no additional complaints Reports as per HPI Musc Reports no additional complaints Skin/Breast Reports as per HPI Neuro Reports no additional complaints Psych Reports no additional complaints Endo Reports no additional complaints Jayro/Lymph Reports no additional complaints Aller/Immun Reports no additional complaints Physical Exam Vital Signs: Last Vital Signs BP 120/72 03/03/25 07:55 BMI result Body Mass Index 37.1 Const General: cooperative, healthy appearing, no acute distress, well developed and alert Orientation/consciousness: patient oriented x3 HEENT Head: Yes normal to inspection Eyes General: appearance normal, both eyes and all related structures Neck Neck: Yes normal visual inspection Thyroid: Thyroid normal Chest Chest palpation & inspection: normal inspection of the chest and other (no puckering, dimpling, peau de orange, retraction, discharge, masses) Breast/axilla inspection: normal inspection of the breasts Breast/axilla palpation: normal palpation of the breasts Resp Effort & Inspection: normal respiratory effort GI Inspection: Yes normal to inspection Palpation (GI): Soft to palpation Rectal Exam - Female: deferred General: Yes bladder normal to palpation External Female Exam: normal external appearance and normal appearance of the urethra Speculum Exam - Vagina: normal appearance of the vagina, normal palpation and normal vaginal discharge Speculum Exam - Cervix: normal appearance of the cervix and normal palpation Bimanual exam- vagina & uterus: normal bimanual exam, normal palpation, uterine size normal, bladder normal to palpation, normal palpation and non-tender Bimanual Exam- Adnexa, other: no masses Skin General skin exam: no rashes or lesions noted Rashes: no rashes Neuro General: patient oriented x3 Cognition (Neuro): normal cognition Extrem General: Yes normal to inspection Psych Attitude: cooperative Thought process: Normal thought process present Assessment & Plan Assessment & Plan (1) Encounter for well woman exam with routine gynecological exam: Code(s): Z01.419 - Encounter for gynecological examination (general) (routine) without abnormal findings Category: Medical Plan Discussed: Current recommendations for pap smears per ASCCP guidelines. Breast awareness, periodic self breast exams and yearly mammogram. Maintain a healthy lifestyle, well balanced diet including Calcium 1,200 mg and Vitamin D 600 IU daily, and routine exercise. Contact the office with any postmenopausal bleeding. Patient verbalizes understanding and agrees to the plan of care. She was given opportunity to ask questions and all questions were answered to the best of my ability. RTO in 1 year for annual readers' advisory service librarian exam. This note is constructed using voice recognition software. While every effort has been made to ensure accuracy, forest fire fighters dispatcher errors may have been included. Coding Level of Care Code Est Pt Prev Care 40-64y(31422) Diagnoses Encounter for well woman exam with routine gynecological exam Z01.419
[2025-03-03 07:55] VITALS: BP 120/72; BMI 37.1
== END 2025-03-03 08:22 | disposition home or self-care (01) ==
LOC: HO.HWS 07:45
PROVIDERS: PCP Student in an Organized Health Care Education/Training Program; Visit Provider Advanced Practice Midwife
DX: Z01.419 Encounter for gynecological examination (general) (routine) without abnormal findings (principal)
CPT/HCPCS: 99396; 99459

== ENCOUNTER → 2025-03-03 07:45 | Outpatient (BNVA) | payer OTHER, SELFPAY | PROVIDERS: PCP Student in an Organized Health Care Education/Training Program; Visit Provider Advanced Practice Midwife ==

== ENCOUNTER 2025-04-27 15:59 | Outpatient (REF) | payer OTHER, SELFPAY ==
--- NOTE | ~2025-04-27 | US_ITS ---
Exam: Limited ultrasound extremity nonvascular, right, right axilla INDICATION: Right axillary pain, constant pain when reaching upward, stabbing pain, for one year TECHNIQUE: Grayscale and color Doppler imaging was performed in the right axilla in the region of the patient's pain Prior: Right shoulder MRI July 14, 2024 FINDINGS: No abnormal mass or fluid collection is demonstrated. Dedicated imaging in the area where the patient indicates that there is pain, there is a normal-appearing lymph node and subcutaneous soft tissues. US/US Extremity Nonvas Limited RT IMPRESSION: Unremarkable right axillary ultrasound. Electronically signed by: Yaakov Amato MD 04/27/2025 04:24 PM EDT
--- OUTSIDE RECORDS SUMMARY | 2025-04-27 16:02 | XMS_ITS | Data Portability ---
Author Organization [facility], Main Office Address [address] [facility] [address] [place] [phone] Care Team Providers Care Greenhouse Specialist Name Role Phone ALLI MARS Ditcher Operator DONITA PAYNE Watch And Clock Repairer ALLAN MAYA Cart Driver DAIN BAIRD Primary Care Provider Assessment No assessment recorded. Plan of Treatment Reminders Order Date Submit Date Provider Last Modified By Organization Details Last Modified Time Details Appointments PE EST 2024 08:15A Kirstin BAIRD MD Not available Not available Not available Lab CBC w/ auto diff [address] [facility], [address], [address], 01/28/2025 15:50:46 epstei n-mejias virus (ebv) IgG + IgM panel, serum [address] [facility], [address], [address], 01/28/2025 15:50:46 cytome galovi marin (cmv) igg Ab, serum [address] [facility], [address], [address], 01/28/2025 15:50:46 lipid panel, serum 2023 024 [facility], [address] [place] [address] [place], [address], 05/28/2024 11:07:31 BMP, serum or plasma 2023 024 [facility], [address] [place] [address] [place], [address], 12/12/2024 09:33:02 CBC w/ auto diff 2023 024 [facility], [address] [place] [address] [place], [address], 05/27/2024 11:06:36 TSH, serum or plasma 2023 024 [facility], [address] [place] [address] [place], [address], 12/12/2024 09:33:02 hepati tis C virus Ab, serum 2023 024 [facility], [address] [place] [address] [place], [address], 05/16/2024 10:29:22 HIV 1+2 AB + HIV 1 p24 Ag, qualit ative immuno assay, serum 2023 024 [facility], [address] [place] [address] [place], [address], 05/16/2024 10:29:21 lipid panel, serum 2021 022 [facility], [address], [address], 11/29/2021 13:24:04 Referral None record ed. Procedures [...] nt of the breast 2024 025 [email or web address], [address], [place], [address], 02/17/2025 13:49:19 Medication Orders None record ed. Patient TargetsNo targets recorded. Patient Instructions Encounter Date Encounter Id Patient Instructions Last Modified By Organization Details Last Modified Time 11/10/2021 [id number] body mass index: care instructions [email or web address] Not available 11/10/2021 15:51:30 learning about healthy weight [email or web address] Not available 11/10/2021 15:51:30 11/16/2022 [id number] headache: care instructions [email or web address] Not available 11/16/2022 16:40:22 05/16/2024 [id number] Well Visit, Ages 18 to 65: Care Instructions Not available 05/16/2024 10:28:11 preventing falls: care instructions Not available 05/16/2024 10:28:11 medical record request* [email or web address] Not available 05/16/2024 14:08:25 HIV testing: care instructions Not available 05/16/2024 10:28:11 Reason for Referral None Reported. Results Created Date Observation Date Name Description Value Unit Range Abnormal Flag Note LastModifiedBy Organization Detail LastModifiedTime 05/27/2005/27/2024 lipid panel , serum triglycerdie s 97 Not Available [facility] (Medical Records) [address] [place] [address], [address], 05/28/2024 11:06:04 05/27/20 24 05/27/2024 lipid panel , serum cholesterol 239 Not Available [facility] (Medical Records) [address] [place] [address], [address], 05/28/2024 11:06:04 05/27/20 24 05/27/2024 lipid panel , serum LDL 160 Not Available [facility] (Medical Records) [address] [place] [address], [address], 05/28/2024 11:06:04 05/27/20 24 05/27/2024 lipid panel , serum HDL 60 Not Available [facility] (Medical Records) [address] [place], [address], 05/28/2024 11:06:04 05/27/20 24 05/27/2024 CBC w/ auto diff WBC 4.3 Not Available [facility] (Medical Records) [address] [place], [address], 05/27/2024 11:05:39 05/27/20 24 05/27/2024 CBC w/ auto diff RBC 4.79 Not Available [facility] (Medical Records) [address] [place], [address], 05/27/2024 11:05:39 05/27/20 24 05/27/2024 CBC w/ auto diff HGB 14 Not Available [facility] (Medical Records) [address] [place], [address], 05/27/2024 11:05:39 05/27/20 24 05/27/2024 CBC w/ auto diff HCT 41.2 Not Available [facility] (Medical Records) [address] [place], [address], 05/27/2024 11:05:39 05/27/20 24 05/27/2024 CBC w/ auto diff plt 232 Not Available [facility] (Medical Records) [address] [place], [address], 05/27/2024 11:05:39 01/16/20 25 01/16/2025 CBC WITH DIFFE RENTI AL/PL ATELE T WBC 6.5 x10e3 /uL 3.4-10 .8 normal Not Available [facility] ([facility]) [address] [facility] [place], [place], [address], 01/16/2025 12:05:57 01/16/20 25 01/16/2025 CBC WITH DIFFE RENTI AL/PL ATELE T RBC 4.05 x10e6 /uL 3.77-5 .28 normal Not Available [facility] ([facility]) [address] [facility] [place], [place], [address], 01/16/2025 12:05:57 01/16/20 25 01/16/2025 CBC WITH DIFFE RENTI AL/PL ATELE T hemoglobin 11.3 g/dL 11.1-1 5.9 normal Not Available [facility] ([facility]) [address] [place], [address], 01/16/2025 12:05:57 01/16/20 25 01/16/2025 CBC WITH DIFFE RENTI AL/PL ATELE T hematocrit 34.1 % 34.0-4 6.6 normal Not Available [facility] ([facility]) [address] [place], [address], 01/16/2025 12:05:57 01/16/20 25 01/16/2025 CBC WITH DIFFE RENTI AL/PL ATELE T MCV 84 fL 79-97 normal Not Available [facility] ([facility]) [address] [place], [address], 01/16/2025 12:05:57 01/16/20 25 01/16/2025 CBC WITH DIFFE RENTI AL/PL ATELE T MCH 27.9 pg 26.6-3 3.0 normal Not Available [facility] ([facility]) [address] [place], [address], 01/16/2025 12:05:57 01/16/20 25 01/16/2025 CBC WITH DIFFE RENTI AL/PL ATELE T MCHC 33.1 g/dL 31.5-3 5.7 normal Not Available [facility] ([facility]) [address] [place], [address], 01/16/2025 12:05:57 01/16/20 25 01/16/2025 CBC WITH DIFFE RENTI AL/PL ATELE T RDW 14.9 % 11.7-1 5.4 Not Available [facility] ([facility]) [address] [facility] [place], [place], [address], 01/16/2025 12:05:57 01/16/20 25 01/16/2025 CBC WITH DIFFE RENTI AL/PL ATELE T platelets 261 x10e3 /uL 150-45 0 normal Not Available [facility] ([facility]) [address] [facility] [place], [place], [address], 01/16/2025 12:05:57 01/16/20 25 01/16/2025 CBC WITH DIFFE RENTI AL/PL ATELE T neutrophils 52 % not estab. normal Not Available [facility] ([facility]) [address] [facility] [place], [place], [address], 01/16/2025 12:05:57 01/16/20 25 01/16/2025 CBC WITH DIFFE RENTI AL/PL ATELE T lymphs 26 % not estab. normal Not Available [facility] ([facility]) [address] [facility] [place], [place], [address], 01/16/2025 12:05:57 01/16/20 25 01/16/2025 CBC WITH DIFFE RENTI AL/PL ATELE T monocytes 6 % not estab. normal Not Available [facility] ([facility]) [address] [facility] [place], [place], [address], 01/16/2025 12:05:57 01/16/20 25 01/16/2025 CBC WITH DIFFE RENTI AL/PL ATELE T eos 15 % not estab. normal Not Available [facility] ([facility]) [address] [facility] [place], [place], [address], 01/16/2025 12:05:57 01/16/20 25 01/16/2025 CBC WITH DIFFE RENTI AL/PL ATELE T basos 1 % not estab. normal Not Available [facility] ([facility]) [address] [place], [address], 01/16/2025 12:05:57 01/16/20 25 01/16/2025 CBC WITH DIFFE RENTI AL/PL ATELE T immature cells MGMT SPECIALIST Not Available [facility] ([facility]) [address] [place], [address], 01/16/2025 12:05:57 01/16/20 25 01/16/2025 CBC WITH DIFFE RENTI AL/PL ATELE T neutrophils (absolute) 3.4 x10e3 /uL 1.4-7. 0 normal Not Available [facility] ([facility]) [address] [place], [address], 01/16/2025 12:05:57 01/16/20 25 01/16/2025 CBC WITH DIFFE RENTI AL/PL ATELE T lymphs (absolute) 1.7 x10e3 /uL 0.7-3. 1 normal Not Available [facility] ([facility]) [address] [place], [address], 01/16/2025 12:05:57 01/16/20 25 01/16/2025 CBC WITH DIFFE RENTI AL/PL ATELE T monocytes(ab solute) 0.4 x10e3 /uL 0.1-0. 9 normal Not Available [facility] ([facility]) [address] [place], [address], 01/16/2025 12:05:57 01/16/20 25 01/16/2025 CBC WITH DIFFE RENTI AL/PL ATELE T eos (absolute) 1.0 x10e3 /uL 0.0-0. 4 above high normal Not Available [facility] ([facility]) [address] [place], [address], 01/16/2025 12:05:57 01/16/20 25 01/16/2025 CBC WITH DIFFE RENTI AL/PL ATELE T baso (absolute) 0.1 x10e3 /uL 0.0-0. 2 normal Not Available [facility] ([facility]) [address] [place], [address], 01/16/2025 12:05:57 01/16/20 25 01/16/2025 CBC WITH DIFFE RENTI AL/PL ATELE T immature granulocytes 0 % not estab. Not Available [facility] ([facility]) [address] [place], [address], 01/16/2025 12:05:57 01/16/20 25 01/16/2025 CBC WITH DIFFE RENTI AL/PL ATELE T immature grans (abs) 0.0 x10e3 /uL 0.0-0. 1 Not Available [facility] ([facility]) [address] [place], [address], 01/16/2025 12:05:57 01/16/20 25 01/16/2025 CBC WITH DIFFE RENTI AL/PL ATELE T NRBC MGMT SPECIALIST Not Available [facility] ([facility]) [address] [place], [address], 01/16/2025 12:05:57 01/16/20 25 01/16/2025 CBC WITH DIFFE RENTI AL/PL ATELE T hematology comments: MGMT SPECIALIST Not Available [facility] ([facility]) [address] [place], [address], 01/16/2025 12:05:57 01/16/20 25 01/16/2025 EBVCA (IGG/ M) ebv Ab vca, IgM <36.0 U/mL 0.0-35 .9 Negat umberto <36.0 Equiv ocal 36.0 - 43.9 Posit umberto >43.9 Not Available [facility] ([facility]) [address] [place], [address], 01/16/2025 12:05:58 01/16/20 25 01/16/2025 EBVCA (IGG/ M) ebv Ab vca, IgG <18.0 U/mL 0.0-17 .9 Negat umberto <18.0 Equiv ocal 18.0 - 21.9 Posit umberto >21.9 Not Available [facility] ([facility]) [address] [place], [address], 01/16/2025 12:05:58 01/16/2001/16/2025 CYTOM EGALO VIRUS (CMV) AB, IGG cytomegalovi marin (CMV) Ab, IgG <0.60 U/mL 0.00-0 .59 Negat umberto <0.60 Equiv ocal 0.60 - 0.69 Posit umberto >0.69 Not Available [facility] ([facility]) [address] [place], [address], 01/16/2025 12:05:59 05/09/20 22 05/08/2022 MAMMO , scree eduardo, digit al, bilat eral No observ ation record ed. [email or web address] [address] [place], [address], 05/24/2022 10:02:38 05/10/20 22 05/08/2022 MAMMO , scree eduardo, digit al, bilat eral No observ ation record ed. [email or web address] [facility] [address] [place] [address] [place], [address], 05/24/2022 10:02:38 06/03/20 23 05/14/2023 MAMMO , scree eduardo, digit al, bilat eral No observ ation record ed. [address] [place], [address], 06/04/2023 13:14:51 07/16/20 24 07/14/2024 MRI, shoul arthur, w/o contr ast No observ ation record ed. [address] (Medical Records) [address] [facility], [place], [address], 07/16/2024 13:59:59 02/21/20 25 02/20/2025 MAMMO , diagn ostic , digit al, bilat eral No observ ation record ed. [address] [facility] [address] [place], [address], 02/20/2025 13:06:30 Result Notes None recorded. Problems Name Problem SNOMED Code Status Onset Date Resolution Date Notes Provider Name and Address Organization Details Recorded Time Patient status finding 831144315 Completed 12/20/2015 Ana fallon [facility] 6 09:36:20 Influenz a vaccine needed 22861115784 06 Completed 12/20/2015 Ana fallon [facility] 6 09:36:20 Influenz a vaccine needed 90031420676 06 Completed 201205/05/2014 RECORDED 04/29/20 13 12:59PM BY JEWELL ABARCA MA, EFRAÍN ON/ADDEN DUM Ana fallon [facility] 6 09:36:19 Adult health examinat ion Completed 12/20/2015 Ana fallon [facility] 6 09:36:20 Adult health examinat ion Completed 201205/05/2014 IMPRESSI ON: PAP AND MAMMO UTD, IS ON VITAMIN D, EXERCISE S ALL GOOD AT HOME, HASD A CHOELSTE ROL DONE AT WORK THAT WAS NL, PT IWLL SEND ME LEVEL; RECORDED 04/29/20 13 12:59PM BY JEWELL ABARCA MA, ANNOTATI ON/ADDEN DUM Ana fallon [facility] 6 09:36:19 Pure hypercho lesterol emia 277219078 Completed 12/22/2016 VIC Lopez, [facility] 7 13:42:53 Pain in limb 97426970 Completed 12/20/2015 Ana fallon, [facility] 6 09:36:20 Screenin g for malignan t neoplasm of breast Completed 201205/05/2014 RECORDED 04/29/20 13 12:59PM BY JEWELL ABARCA MA, CLUADYATI ON/ADDEN DUM Ana fallon [facility] 6 09:36:19 Administ ration of bacteria l and viral vaccine Completed 201005/05/2014 RECORDED 03/16/20 11 1:29PM BY HALI LEMOS, OFFICE VISIT Ana fallon [facility] 6 09:36:19 Headache 52789563 Completed 12/20/2015 Ana fallon [facility] 6 09:36:20 Influenz a vaccine needed 83605800361 06 Completed 201305/28/2014 RECORDED 04/16/20 14 3:40PM BY EFRAÍN LOPEZ ON/ADDEN DUM Ana fallon [facility] 6 09:36:19 Adult health examinat ion Completed 201305/28/2014 IMPRESSI ON: PAP FOLLOWED BY WIRE GALVANIZER, ABN AND WILL GET REPEAT 02/02, MAMMO UTD, IS ACTIVE [facility].; RECORDED 04/16/20 14 3:40PM BY EFRAÍN LOPEZ ON/ADDEN DUM Ana fallon [facility] 6 09:36:19 Screenin g for malignan t neoplasm of breast Completed 201205/28/2014 RECORDED 04/29/20 13 12:59PM BY JEWELL ABARCA MA, EFRAÍN ON/ADDEN DUM Ana Glading-D ilorenzo null, [facility] 6 09:36:19 Administ ration of bacteria l and viral vaccine Completed 201005/28/2014 RECORDED 03/16/20 11 1:29PM BY HALI LEMOS, OFFICE VISIT Ana fallon [facility] 6 09:36:19 Shoulder joint pain 171006486 Completed 12/20/2015 Ana fallon, [facility] 6 09:36:20 Influenz a vaccine needed 46402881929 06 Completed 201305/29/2014 RECORDED 04/16/20 14 3:40PM BY EFRAÍN LOPEZ ON/ADDEN DUM Ana fallon [facility] 6 09:36:19 Adult health examinat ion Completed 201305/29/2014 IMPRESSI ON: PAP FOLLOWED BY WIRE GALVANIZER, ABN AND WILL GET REPEAT 02/02, MAMMO UTD, IS ACTIVE [facility].; RECORDED 04/16/20 14 3:40PM BY EFRAÍN LOPEZ ON/ADDEN DUM Ana fallon [facility] 6 09:36:19 Screenin g for malignan t neoplasm of breast Completed 201205/29/2014 RECORDED 04/29/20 13 12:59PM BY JEWELL ABARCA MA, EFRAÍN ON/ADDEN DUM Ana fallon [facility] 6 09:36:20 Administ ration of bacteria l and viral vaccine Completed 201005/29/2014 RECORDED 03/16/20 11 1:29PM BY HALI LEMSO, OFFICE VISIT Ana fallon [facility] 6 09:36:19 Upper respirat ory infectio n 00288147 Completed 12/20/2015 Ana fallon [facility] 6 09:36:20 Low back pain 070482714 Completed 05/16/2024 DAIN BAIRD MD [address], [place], [address], [facility] 4 10:35:09 Inflamma tion of sacroili ac joint 44868333 Active under good control DAIN BAIRD MD [address], [place], [address], [facility] 4 10:35:07 Hypercho lesterol emia 33869672 Active Ana ortega [facility] 6 09:50:49 Pain of wrist region 70348564 [facility] 7 13:43:04 Anxiety 52267274 Active 2017 in remissio n DAIN BAIRD MD [address], [place], [address], [facility] 4 10:34:56 Pain in axilla 444575720 Active 2024 DAIN BAIRD MD [address], [place], [address], [facility] 5 15:34:47 Problem Notes None recorded. Procedures Surgical History Date Name Laterality Status Provider Name and Address Organization Details Recorded Time 3 Endoscopic us exam esoph completed Linnette Schwarz [facility] 01/09/2023 13:24:47 2 Most Recent Mammogram completed Natalee Noble [facility] 05/24/2022 10:02:25 2 Mammogram screening completed Natalee Noble [facility] 05/24/2022 10:00:38 1 Colonoscopy completed Linnette Schwarz [facility] 05/19/2024 10:13:17 01/01/202 1 Date of Last Colonoscopy completed Hali Lemos MA [facility] 11/10/2021 15:20:52 9 Date of Last Pap Smear completed Monica Montero RN [facility] 09/08/2019 09:21:08 Tubal Ligation completed Hali Lemos MA [facility] 11/04/2020 08:34:07 Imaging Results None recorded. Procedure Notes None recorded. Medical Equipment None [...] PLEASE SEE ATTACHED FOR DETAILED DIRECTIO NS 08/01 /2023 completed Not Available Not Available Not Available [...] blood by Pulse oximetry Heart rate Systolic And Diastolic Provider Name and Address Organization Details Last Updated DateTime 2 154.94 cm 97.88 [degF] 100 % 100 % 85 /min 120/76 mm[Hg] Hali Lemos [place] - [facility] [place] 2 15:18:01 Date Recorded Body height Oxygen saturation Oxygen saturation in Arterial blood by Pulse oximetry Heart rate Body temperature Systolic And Diastolic Provider Name and Address Organization Details Last Updated DateTime 3 154.94 cm 98 % 98 % 75 /min 97.3 [degF] 120/79 mm[Hg] Hali Lemos MA [facility] 3 09:19:30 Date Recorded Body height Oxygen saturation Oxygen saturation in Arterial blood by Pulse oximetry Heart rate Body temperature Systolic And Diastolic Provider Name and Address Organization Details Last Updated DateTime 5 154.94 cm 100 % 100 % 69 /min 97.3 [degF] 126/76 mm[Hg] Hali Lemos MA [facility] 5 15:23:50 Date Recorded Body height Heart rate Oxygen saturation Oxygen saturation in Arterial blood by Pulse oximetry Body temperature Systolic And Diastolic Provider Name and Address Organization Details Last Updated DateTime 4 154.94 cm 93 /min 97 % 97 % 98.4 [degF] 105/69 mm[Hg] Nitza boland MA [facility] 4 10:13:53 Date Recorded Body height Heart rate Oxygen saturation Oxygen saturation in Arterial blood by Pulse oximetry Body temperature Systolic And Diastolic Provider Name and Address Organization Details Last Updated DateTime 3 154.94 cm 92 /min 97 % 97 % 98.3 [degF] 105/67 mm[Hg] Rod Frias MA [facility] 3 08:50:35 Social History Question Answer Notes LastModified by Organizat ion Details LastModified Time Tobacco Smoking Status Never Smoker VIC Lopez [facility] 10/12/2014 08:18:32 Is Blood Transfusion Acceptable In An Emergency? Yes Information not available 09/28/2015 What Is Your Level Of Caffeine Consumption? Occasional Tea Information not available 09/28/2015 How Much Tobacco Do You Chew? None Information not available 09/28/2015 What Type Of Diet Are You Following? REGULAR [email or web address] Information not available 10/12/2014 Live Alone Or With Others? With Others /son And His Girlfriend [email or web address] Information not available 11/10/2021 Do You Take Precautions To Prevent Distracted Driving? Yes Information not available 09/28/2015 How Often Do You Need To Have Someone Help You When You Read Instructions, Pamphlets, Or Other Written Material From Your Doctor Or Pharmacy? Never Information not available 09/28/2015 Have You Served In The ? No [email or web address] Information not available 12/22/2016 Have You Or Anyone In Your Household Had Any Of The Following Symptoms In The Last 14 Days: Sore Throat, Cough, Chills, Body Aches For Unknown Reasons, Shortness Of Breath For Unknown Reasons, Loss Of Smell, Loss Of Taste, Fever At Or Greater Than 100 Degrees Fahrenheit? No [email or web address] Information not available 11/04/2020 Are You Or Anyone In Your Household A Health Care Provider Or Emergency Responder? Yes RN [email or web address] Information not available 11/04/2020 To The Best Of Your Knowledge Have You Been In Close Proximity To Any Individual Who Tested Positive For COVID-19? No [email or web address] Information not available 11/04/2020 Have You Recently Traveled To A COVID-19 High Risk Area Or Gathering In The Last 10 Days? No [email or web address] Information not available 11/04/2020 What Was The Date Of Your Most Recent Tobacco Screening? 05/16/2024 [email or web address] Information not available 05/16/2024 How Many Children Do You Have? 2 Information not available 09/28/2015 Do You Use Protection During Sex? No Information not available 09/28/2015 Do You Use Your Seat Belt Or Car Seat Routinely? Yes [email or web address] Information not available 11/10/2021 Seat Belts Used Routinely Yes [email or web address] Information not available 11/10/2021 Are You Sexually Active? Yes Information not available 09/28/2015 Smoke Alarm In Home Yes Information not available 11/10/2021 Do You Have Smoke And Carbon Monoxide Detectors In Your Home? Yes [email or web address] Information not available 11/10/2021 Are You Passively Exposed To Smoke? No Information not available 09/28/2015 How Much Tobacco Do You Smoke? No [email or web address] Information not available 11/04/2020 Do You Use Sunscreen Routinely? Yes [email or web address] Information not available 10/12/2014 Sex: Unknown Functional Status Question Answer Note LastModified by Organizat ion Details LastModified Time What is your level of alcohol consumption? Occasional Information not available 11/04/2020 Do you or have you ever used smokeless tobacco? Never used smokeless tobacco [email or web address] Information not available 11/04/2020 Are you currently employed? Yes Information not available 09/28/2015 Are you able to walk? YESWOREST [email or web address] Information not available 11/10/2021 Are you able to care for yourself? 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 Never used electronic cigarettes [email or web address] Information not available 11/10/2021 What is your exercise level? Moderate low impact [email or web address] Information not available 11/16/2022 Mental Status None recorded. Family History Relationship Description Onset Age of this Age Resolved Age Notes LastModified by Organization Details LastModified Time Father Hypertensive disorder high choles terol [email or web address] Not available 12/20/2015 09:37:10 Maternal Aunt Carcinoma in situ of lung [email or web address] Not available 15:02:07 Mother Kidney disease high [...] virus, quadrivalent, preservative 6 completed [facility] 12/22/2016 13:53:27 Influenza, split virus, quadrivalent, preservative 7 completed [facility], [facility] 16:51:53 Influenza, split virus, quadrivalent, preservative 0 completed [facility] 11/04/2020 08:49:47 COVID-19, mRNA, LNP-S, PF, 100 mcg/0.5mL dose or 50 mcg/0.25mL dose 1 [facility] 11/04/2020 08:50:53 COVID-19, mRNA, LNP-S, PF, 30 mcg/0.3 mL dose 1 [facility] 11/10/2021 15:19:10 Influenza, split virus, trivalent, preservative 4 [facility] 11/16/2022 09:15:17 COVID-19, mRNA, LNP-S, PF, 30 mcg/0.3 mL dose 0 completed [facility] 11/16/2022 09:15:17 Influenza, split virus, trivalent, preservative 3 completed [facility] 11/16/2022 09:15:17 Influenza, split virus, trivalent, preservative 4 [facility] 11/16/2022 09:15:17 Influenza, split virus, quadrivalent, preservative 5 completed Hali Lemos VIC leeanne, [facility] 11/16/2022 09:15:17 COVID-19, mRNA, LNP-S, PF, 30 mcg/0.3 mL dose 1 completed VIC [facility]15[facility]17 Influenza, split virus, quadrivalent, PF 1 completed VIC Haley, [facility] 05/22/2023 08:22:42 Influenza, split virus, quadrivalent, PF 2 completed VIC Haley, [facility] 05/22/2023 08:22:42 Tdap 1 completed Not Available [facility] 05/05/2014 13:42:12 Influenza, split virus, trivalent, preservative 2 completed Not Available [facility] 05/05/2014 13:42:12 Influenza, split virus, quadrivalent, PF 9 completed Not Available [facility] 11/08/2019 02:22:10 Tdap 1 completed VIC Lopez, [facility] 11/04/2020 09:06:46 Past Encounters Encounter ID Performer Location Encounter Start Date Encounter Closed Date Diagnosis/Indication Diagnosis SNOMED-CT Code Diagnosis ICD10 Code Diagnosis Note [id number] auto[facility]Comm erce [id number] [facility] [place] [address] 03/16/2011 00:00:00 [id number] autoEComm erce [id number] [facility] [address] [place] [address] 09/30/2012 00:00:00 [id number] autoEComm erce [id number] [facility] [address] [place] [address] 04/29/2013 00:00:00 [id number] autoEComm erce [id number] [facility] [address] [place] [address] 10/06/2013 00:00:00 [id number] autoEComm erce [id number] [facility] [place] [address] 04/16/2014 00:00:00 [id number] Ana jackson MD Main Office [address] [facility] [address] [place] [facility] [place] [address] 10/12/2014 08:55:19 10/12/2014 09:33:11 Adult health examination 839976508 pt is doing well, shots utd, will work on diet. [id number] Shorty Hagan MD Main Office [address] [address] [place] [address] 06/21/2015 13:21:04 06/21/2015 14:11:21 Low back pain [id number] Dora Walls PA-C Main Office [address] [address] [place] [address] 09/28/2015 11:35:43 09/28/2015 12:01:33 Inflammation of sacroiliac joint 69727775 M46.1 L. SI joint inflammati on. Start Naprosyn 500 mg BID with food. Moist heat 10 min TID. Cyclobenza rebecca at 10 mg TID for 5 days. Possible side effects reviewed. [id number] Ana jackson MD Main Office [address] [address] [place] [address] 12/20/2015 08:57:42 12/20/2015 09:50:05 Adult health examination 610994417 Z00.00 pt is doing well, shots utd, changed tnad increased activity and is losing weight Fatigue 91561712 R53.83 mom with renal abnormalit ies, check pts baseline Hypercholesterolemia 136 22831 E78.0 bother parents with high cholestero l, check fasting, good 5 years ago [id number] Willi Walls PA-C Main Office [address] [address] [place] [address] 06/06/2016 13:15:00 06/06/2016 14:04:57 Pain of wrist region 50705579 M25.532 [id number] Ana jackson MD Main Office [address] [address] [place] [address] 12/22/2016 13:15:52 12/22/2016 14:28:06 Adult health examination 703105556 Z00.00 pt is doing well, shots utd, changed diet and increased activity and is losing weight Fatigue 13979722 R53.83 check labs Hypercholesterolemia 136 62098 E78.2 check fasting, has not had it done recently Body mass index 30+ - obesity 995919594 Z68.39 BMI is 33 pt is working on diet and exercise Allergic urticaria 16886 009 L50.0 very rarely, no systemic symptoms, can get allergy tested if it continues [id number] Ana jackson MD Main Office [address] [facility] [address] [place] [address] 06/11/2017 13:47:36 06/11/2017 14:43:17 Pain of shoulder region 71871897 M25.511 sound slike impingemen t, pt to see ortho she will make appt Anxiety 32204419 F41.9 continue sertraline [id number] Ana jackson MD Main Office [address] [address] [place] [address] 08/13/2017 16:43:41 08/13/2017 17:17:45 Anxiety 43629940 F41.9 increase sertraline to 75mg a day, sleeping better, nice result [id number] Ana jackson MD Main Office [address] [address] [place] [address] 12/24/2017 09:41:46 12/24/2017 10:34:27 Adult health examination 144977941 Z00.00 pt is utd on pap and mammogram, we will request records, is exercising and working on weight loss, will add more weight training Anxiety 91399143 F41.9 increase sertraline to 75mg a day, sleeping better, nice result Hypercholesterolemia 136 65549 E78.2 check fasting, has not had it done recently Fatigue 40251095 R53.83 check labs Obesity 719003045 E66.9 Body mass index 30+ - obesity 766229472 Z68.32 BMI is 32 pt is working on diet and exercise [id number] Ana jackson MD Main Office [address] [address] [place] [address] 07/08/2018 10:28:55 07/08/2018 11:22:37 Anxiety 16564487 F41.9 well controlled on sertraline 75mg a day continue Pain of sh oulder region 50195695 M25.511 sounds like impingemen t, pt to see ortho she will make appt [id number] Ana jackson MD Main Office [address] [place] [address] 07/22/2019 14:22:14 07/22/2019 15:25:27 Adult health examination 300446413 Z00.00 pt is utd on pap and mammogram, pt to work on low animal fat diet and up exercise Needs infl uenza immunization 558748450 Z23 Obesity 947084748 E66.9 Hypercholesterolemia 136 23260 E78.2 fasting LDL 158 work on low animal fat diet/decre ase cheese [id number] Ana jackson MD Main Office [address] [facility] [address] [place] [address] 11/04/2020 08:32:44 11/04/2020 09:44:17 Adult health examination 890648224 Z00.00 pt is utd on pap, will get mammogram pt to work on low animal fat diet and up exercise Hypercholesterolemia 136 81774 E78.2 fasting LDL 158 work on low animal fat diet/decre ase cheese Anxiety 49822949 F41.9 restart ssertralin e 75mg a day helped in past Administra tion of viral vaccine 47935549 Z23 Screening for malignant neoplasm of breast 831006498 Z12.39 pt to arrange [id number] Ana jackson MD Telehealt h [address] [facility] [address] [place] [place] [address] 05/04/2021 08:27:30 05/04/2021 09:52:07 Anxiety 48558106 F41.9 sertraline helping anxiety, refill and keep at same dose [id number] Ana jackson MD Main Office [address] [facility] [address] [place] [address] 11/10/2021 14:59:51 11/10/2021 15:43:03 Adult health examination 067368017 Z00.00 pt is utd on pap and mammogram pt to work on low animal fat diet and up exercise Anxiety 39888277 F41.9 sertraline helping anxiety, refill and keep at same dose Hypercholesterolemia 136 15579 E78.2 fasting LDL 158 in past work on low animal fat diet/decre ase cheese recheck fasting Body mass index 30+ - obesity 700237516 Z68.32 does not get weighed here, pt to work on healthy eating and exercise [id number] Ana jackson MD Main Office [address] [facility] [address] [place] [address] 11/16/2022 09:09:22 11/16/2022 09:51:34 Adult health examination 769285391 Z00.00 pt is utd on pap and mammogram pt to work on low animal fat diet and up exercise 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 Headache 77464762 R51.9 mild hydrate and tylenol [id number] DAIN BIARD MD Main Office [address] [facility] [address] [place] [address] 05/22/2023 08:20:19 05/22/2023 09:04:14 Anxiety 12586685 F41.9 - in remission- c/w sertraline 75mg QD- counsellin g provided Inflammati on of sacroiliac joint 91130631 M46.1 - pt will get injections in the SI joint (bilateral ), last was 04/18/31- pt following with pain management Cough 72510978 R05.9 - mild- physical exam was reassuring [...] t Viral uppe r respiratory tract infection 052511983 J06.9 - please see above [id number] DAIN BAIRD MD Main Office [address] [facility] [address] [place] [address] 05/16/2024 10:04:58 05/16/2024 10:30:55 Adult health examination 688089315 Z00.00 Health Maintenanc e FemaleA) Patient was counseled on healthy diet, exercise and nutrition. B) ScreeningL ast Mammogram: start at age 50 stop at 74Date: 05/14/2023R esult: BIRADS-2Ne xt: 04/2024 (had it done at [place]) Last Pap smear: start at age 21 to age 65Date: 11/12/2018R esults: HPV negative, no atypical cellsNext: DUE (pt mentioned she had one recently, will request) Last Colonoscop y: start at age 45-75Date: Result: Next: DUE (had it done at [place]) Last DEXA scan:Date: due at 67Result: ??? C) Vaccines:I nfluenza: with work 07/2023TdA P: 11/04/2020Z digna: orderedPCV 13: due at 69FNXP70: due at 40LMY66:PC V15:COVID: 10/08/2020 , 10/29/2020, 07/22/2021 D) Routine blood work orderedE) Updated patient's history RTC in one year for annual exam or sooner if any acute complaints Anxiety 37579071 F41.9 - in remission- ERIC-7 score of 0- pt has stopped sertraline - counsellin g provided Fatigue 60275131 R53.83 Z00.00 Hyperlipidemia 41030469 E78.5 Z00.00 FASTING HIV screening 996263437 Z11.4 Hepatitis C screening 41 5086868 Z11.59 Varicella vaccination 68 044700 Z23 [id number] DAIN BAIRD MD Main Office [address] [place] [address] 01/15/2025 15:14:47 01/15/2025 15:38:57 Pain in axilla 689107779 M79.621 - mild tenderness noted on exam [...] Recorded Advance Directives Directive None Recorded Payers Insurance Date Sequence Insurance Name Policy Number Policy Curry Covered Member ID Curry Member ID Guarantor Name 01/29/2025 1 [employer] [place] [id number] Maria C A Towse [id number] Maria C Towse 05/06/2021 1 [place] [id number] Maria C A Towse [id number] Maria C Towse 06/07/2016 1 [place] [facility] - PERSONAL CHOICE (PPO) [id number] Maria C A Towse [id number] Maria C Towse 05/09/2021 [employer] [place] [id number] Maria C A Towse [id number] Maria C Towse 09/28/2015 1 [facility] - [facility]ATE [id number] Rosalino Towse [id number] Amria C Towse 06/07/2016 1 [place] [id number] Maria C A Towse [id number] Maria C Towse 11/04/2020 1 [facility] (HMO) [id number] Maria C Towse [id number] Maria C Towse 06/07/2016 1 [place] [id number] Maria C Towse [id number] Maria C Towse Notes Date Note Type Note Provider Name and Address Organization Details Recorded Time 11/10/19 22 text/htm l Pt is here for a PE. SHe is doing well. utd on mammogram, colonoscopy and log chain worker. Is staying active with walking and yoga. Does not like to weigh self at doctors. sometime does at home. Anxiety well treated on sertraline. [facility] fall[facility], [facility] 11/10/2021 15:51:59 11/16/19 23 text/htm l PT is here for a pe. 5 days of a low grade headache, very mild, functions fine with them, no neck pain. no fevers. Screening is utd. Ana fallon, [facility] 11/16/2022 16:40:44 05/22/20 23 text/htm l Anxiety/DepressionReported [...] have a cough. DAIN BAIRD MD [address], [address], [facility] 05/22/2023 09:12:07 05/16/20 24 text/htm l Maria C Barkley is a 53 year old F [...] seeDiet: regularActivity: yoga, walking DAIN BAIRD MD [address] [address], [place], [address], [facility] 05/16/2024 10:35:29 01/16/20 25 text/htm vicente Barkley [...] did have a mammogram in 2023 at [facility]. Results were normal per patient. Keisha fallon, [facility] 01/28/2025 15:50:49 OBGyn Episode No OBEpisode recorded.
== END 2025-04-27 16:00 | disposition home or self-care (01) ==
LOC: HO.US 15:59
PROVIDERS: PCP Student in an Organized Health Care Education/Training Program; Visit Provider Student in an Organized Health Care Education/Training Program
DX: M79.601 Pain in right arm (principal)
CPT/HCPCS: 76882

== ENCOUNTER → 2025-04-27 16:03 | Outpatient (BNV) | payer OTHER, SELFPAY | PROVIDERS: PCP Student in an Organized Health Care Education/Training Program; Visit Provider Radiology Diagnostic Radiology | DX: M79.621 Pain in right upper arm (principal) | CPT/HCPCS: 76882 ==

== ENCOUNTER 2025-05-20 07:32 | Outpatient (REF) | payer OTHER, SELFPAY ==
--- OUTSIDE RECORDS SUMMARY | 2025-05-20 07:34 | XMS_ITS | Patient Health Record ---
Author Organization [employer] [facility] Address [address] [place] [address] [address] [place] [address] Care Team Providers Care Auto Finance Sales Rep Name Role Phone ELADIO BO Primary Care Provider Unavailable Mariana Miller Unavailable [phone] Allergies Allergen (clinical drug ingredient) Drug/Non Drug Allergy documented on EMR Reaction Allergy Type Onset Date Status acetaminophen / oxycodone PERCOCET Nausea/Vomiting /Diarrhea Drug Allergy Active Reason For Referral No Information Medications Medication SIG (Take, Route, Fr equency, Duration) Notes Start Date End Date Status Calcium-Carb 600 + D 1 ORAL daily; Duration: -3 Joshua-MJ Active Multivitamins 1 ORAL daily; Duration: -3 Joshua-MJ 3 Active Immunizations Vaccine Route Administration Date Status Comme nts Influenza, live, intranasal Intramuscular 11/28/2011 Pendi ng Tdap Intramuscular 11/28/2011 Pending Problems Problem Type SNOMED Code ICD Code Onset Dates Problem Status W/U Status Risk Notes Problem Papanicolaou sme ar of cervix with atypical squamous cells cannot exclude high grade squamous intraepithelial lesion (ASC-H) (795.02) Active confirmed Diag Plan Of Treatment Pending Test Test Name Order Date MAMMOGRAM, SCREENING 03/01/2015 Insurance Providers Payer Name Payer Address Payer Phone Subscriber Number Group Number Insured Name Patient Relationship to Insured Coverage Start Date Coverage End Date [place] [address] [place] [address] [id number] MURRAY FRANKLIN Self - patient is the insured Medical [...]
[2025-05-20 07:47] LABS: MANUAL DIFF FLAG NO
[2025-05-20 08:08] LABS: Hematocrit 40.1 % (37.0-47.0); Hemoglobin 13.5 g/dl (12.0-16.0); Imm Gran Abs Auto 0.00 X10*3/uL (0.00-0.03); Imm Gran Pct Auto 0.0 % (0.0-0.4); Lymphocytes Absolute Auto 1.2 X10*3/uL (1.2-4.9); Mean Corpuscular HGB Conc 33.7 g/dl (31.0-35.0); Mean Corpuscular Hemoglobin 28.2 pg (27.0-33.0); Mean Corpuscular Volume 83.9 fL (80.0-98.0); NRBC Abs Auto 0.000 X10*3/uL (0.0-0.012); NRBC Pct Auto 0.0 /100WBC (0.0-0.2); Platelet Count 219 X10*3/uL (160-400); Red Blood Count 4.78 X10*6/uL (4.20-5.50); White Blood Count 4.5 X10*3/uL (4.8-10.8)
[2025-05-20 08:43] LABS: Anion Gap 15 (12-20); Blood Urea Nitrogen 12 mg/dL (9-16); Calcium 9.2 mg/dL (8.4-10.2); Carbon Dioxide 25 mmol/L (22-29); Chloride 107 mmol/L (96-108); Cholesterol 240 mg/dL (<200); Estimated Glomerular Filt Rate > 60; HDL Cholesterol 56 mg/dL (>40); Potassium 5.0 mmol/L (3.3-5.1); Sodium 142 mmol/L (135-145); Triglycerides 136 mg/dL (<150)
[2025-05-20 08:52] LABS: Free T4 (Free Thyroxine) 1.03 ng/dL (0.71-1.85); Thyroid Stimulating Hormone 3.61 uIU/mL (0.32-4.0)
[2025-05-20 08:57] LABS: ~HepC Num1 0.11 S/CO (0.00-0.79); ~Hepatitis C Antibody Nonreactive (Nonreactive)
== END 2025-05-20 07:33 | disposition home or self-care (01) ==
LOC: HO.LAB 07:32
PROVIDERS: PCP Student in an Organized Health Care Education/Training Program; Visit Provider Student in an Organized Health Care Education/Training Program
DX: Z11.59 Encounter for screening for other viral diseases (principal); E78.2 Mixed hyperlipidemia; R53.83 Other fatigue
CPT/HCPCS: 36415; 80048; 80061; 84439; 84443; 85025; 86803

== ENCOUNTER 2025-06-03 11:39 | Outpatient (AMB) | payer OTHER, SELFPAY ==
--- NOTE | 2025-06-03 11:39 | MHC.OFFVIS ---
Intake Visit Reasons: right shoulder injection Allergies No Known Allergies Allergy (Verified 06/03/25 11:39) Medication List - Last Reconciled 06/03/25 by Maria C Barkley LPN cholecalciferol (vitamin D3) 50 mcg PO DAILY multivitamin 1 tab PO DAILY ondansetron 4 mg PO Q8H PRN pantoprazole 20 mg PO DAILY quetiapine (Seroquel) 25 mg PO BEDTIME tizanidine 2 mg PO TID PRN HPI HPI right shoulder injection: Details: Patient presents for scheduled procedure. Denies any recent cough, cold, infection, fever or other significant changes in medical history since last office visit. 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 Sexual orientation: Straight/Heterosexual Gender identity: Female Female Reproductive History Menstrual Age of Menarche: 18 Office Procedures AMB Joint Injection/Aspiration Joint Injection/Aspiration Primary Site: right shoulder (bicipital tendon) Secondary Site: right shoulder (subacromial bursa) Prep: site was prepped using sterile technique Injected: 20 mg of (at each site), Kenalog, with 4 mL of (ropivacaine 0.25% total), in the subcromial space and other (bicipital groove) Approach Used: other (US guided) Procedure: The patient tolerated the procedure well Coding Details: Images saved - Bicipital Groove Injection - Acromioclavicular with ultrasound guidance Procedure code (CPT) selection complete Assessment & Plan Assessment & Plan (1) Right shoulder pain: Code(s): M25.511 - Pain in right shoulder Category: Medical (2) Rotator cuff impingement syndrome of right shoulder: Code(s): M75.41 - Impingement syndrome of right shoulder Category: Medical Plan Patient is status post right shoulder injections. Patient tolerated procedure well and was discharged home in stable condition with discharge instructions. All questions were answered. We will follow-up via telephone or in clinic to assess response to therapy. A follow-up appointment was made during today's visit. Coding Level of Care Code Procedure Only Diagnoses Right shoulder pain M25.511 Rotator cuff impingement syndrome of right shoulder M75.41 CPT Codes Coding - Joint 1: 35021 - Bicipital Groove Injection ([id number]) Coding - Joint 6: 25850 - Acromioclavicular with ultrasound guidance ([id number])
--- OUTSIDE RECORDS SUMMARY | 2025-06-03 12:36 | XMS_ITS | Patient Health Record ---
Author Organization [employer] [facility] Address [address] [place] [address] [address] [place] [address] Care Team Providers Care Industrial Gas Fitter Name Role Phone ELADIO BO Primary Care Provider Unavailable Mariana Miller Unavailable [phone] Allergies Allergen (clinical drug ingredient) Drug/Non Drug [...] End Date [place] [address] [place] [address] [phone] [id number] MURRAY FRANKLIN Self - patient is [...]
== END 2025-06-03 11:40 | disposition home or self-care (01) ==
LOC: HO.PMC 11:39
PROVIDERS: PCP Student in an Organized Health Care Education/Training Program; Visit Provider Internal Medicine
DX: M25.511 Pain in right shoulder (principal); M75.41 Impingement syndrome of right shoulder
CPT/HCPCS: 20550; 20606

== ENCOUNTER → 2025-06-03 11:39 | Outpatient (BNVA) | payer OTHER, SELFPAY | PROVIDERS: PCP Student in an Organized Health Care Education/Training Program; Visit Provider Internal Medicine | DX: M25.511 Pain in right shoulder (principal); M75.41 Impingement syndrome of right shoulder | CPT/HCPCS: 20550; 20606; J2795; J3301 ==

== ENCOUNTER → 2025-06-26 07:39 | Outpatient (REF) | payer OTHER, SELFPAY ==
--- OUTSIDE RECORDS SUMMARY | 2025-06-26 07:41 | XMS_ITS | Patient Health Record ---
Author Organization [employer] [facility] Address [address] [place] [address] [address] [place] [address] Care Team Providers Care Pipe Organ Mechanic Name Role Phone ELADIO BO Primary Care Provider Unavailable Mariana Miller Unavailable [phone] Allergies Allergen (clinical drug ingredient) Drug/Non Drug [...] Vaccine Route Administration Date Status Comme nts Tdap Intramuscular 11/28/2011 Pending Influenza, live, intranasal Intramuscular 11/28/2011 Pendi ng Problems Problem Type SNOMED Code ICD Code Onset Dates Problem Status W/U Status Risk Notes Problem Atypical squamous cells on cervical Papanicolaou smear cannot exclude high grade squamous intraepithelial lesion (466730164) Papanicolaou smear of cervix with atypical squamous cells cannot exclude high grade squamous intraepithelial lesion (ASC-H) (795.02) Active confirmed Diag Plan Of Treatment Pending Test Test Name Order Date MAMMOGRAM, SCREENING 03/01/2015 Insurance Providers Payer Name Payer Address Payer Phone Subscriber Number Group Number Insured Name Patient Relationship to Insured Coverage Start Date Coverage End Date [place] [address] [place] [phone] [id number] ADRIANAMURRAY NEVAREZ Self - patient is [...]
--- NOTE | 2025-06-26 07:42 | HM_ITS ---
* Total monitoring time 7 days. * Underlying rhythm is sinus with an average rate of 70/Min. * Rare supraventricular ectopy. * Rare ventricular ectopy. * No significant pauses or high-grade AV blocks. * Patient markers associated with sinus rhythm and mild sinus tachycardia. * No diary events. MTDD
== END ==
LOC: HO.CARD 07:39
PROVIDERS: PCP Student in an Organized Health Care Education/Training Program; Visit Provider Student in an Organized Health Care Education/Training Program
DX: R07.89 Other chest pain (principal)
CPT/HCPCS: 93242

== ENCOUNTER → 2025-06-26 07:42 | Outpatient (BNV) | payer OTHER, SELFPAY | PROVIDERS: PCP Student in an Organized Health Care Education/Training Program; Visit Provider Internal Medicine | DX: I47.10 Supraventricular tachycardia, unspecified (principal); I49.3 Ventricular premature depolarization; R00.0 Tachycardia, unspecified | CPT/HCPCS: 93244 ==